=== PATIENT | female | born 1975 | race Caucasian/White ===

== ENCOUNTER 2023-05-24 08:00 | Outpatient (OUT) | payer BC, SELFPAY ==
[2023-05-24 08:40] LABS: Basophils Absolute Auto 0.1 10^3/uL (0.0-0.1); Basophils Percent Auto 0.5 % (0.2-2.0); Eosinophils Absolute Auto 0.2 10^3/uL (0.0-0.7); Eosinophils Percent Auto 1.9 % (0.9-7.0); Hematocrit 45.4 % (36.0-48.0); Hemoglobin 15.4 g/dL (12.0-16.0); Immature Granulocytes Abs Auto 0.02 10^3/uL (0.00-0.03); Immature Granulocytes Pct Auto 0.2 % (0.0-0.5); Lymphocytes Absolute Auto 1.8 10^3/uL (1.2-3.8); Lymphocytes Percent Auto 15.6 % (20.5-60.0); Mean Corpuscular HGB Conc 33.9 g/dL (29.9-35.2); Mean Corpuscular Hemoglobin 30.7 pg (26.7-34.0); Mean Corpuscular Volume 90.6 fL (81.0-99.0); Mean Platelet Volume 9.4 fL (9.5-13.5); Monocytes Absolute Auto 0.3 10^3/uL (0.3-0.8); Monocytes Percent Auto 2.9 % (1.7-12.0); Neutrophils Absolute Auto 9.2 10^3/uL (1.4-6.5); Neutrophils Percent Auto 78.9 % (43.0-75.0); Platelet Count 225 10^3/uL (150-450); Red Blood Count 5.01 10^6/uL (4.20-5.40); Red Cell Distribution Width 13.1 % (11.0-15.0); White Blood Count 11.6 10^3/uL (4.0-11.0)
[2023-05-24 09:35] LABS: Alanine Aminotransferase 46 U/L (14-59); Albumin Globulin Ratio 1.1; Albumin Level 3.8 g/dL (3.4-5.0); Alkaline Phosphatase 95 U/L (46-116); Anion Gap 13.4; Aspartate Amino Transferase 25 U/L (15-37); BUN Creatinine Ratio 12.8; Bilirubin Total 0.2 mg/dL (0.2-1.0); Calcium 8.4 mg/dL (8.5-10.1); Carbon Dioxide 27.1 mmol/L (21.0-32.0); Chloride 102 mmol/L (98-107); Estimated GFR (African America >60 (>=60); Estimated GFR (Non-African Ame >60 (>=60); Globulin 3.4 g/dL; Glucose 135 mg/dL (74-106); Potassium 3.5 mmol/L (3.5-5.1); Sodium 139 mmol/L (136-145); Thyroid Stimulating Hormone 1.185 uIU/mL (0.358-3.740); Total Protein 7.2 g/dL (6.4-8.2)
== END 2023-05-24 08:01 | disposition home or self-care (01) ==
PROVIDERS: PCP Family Medicine; Visit Provider Internal Medicine Rheumatology
DX: E03.9 Hypothyroidism, unspecified (principal); Z79.899 Other long term (current) drug therapy; M07.60 Enteropathic arthropathies, unspecified site; M19.90 Unspecified osteoarthritis, unspecified site
CPT/HCPCS: 36415; 80053; 84439; 84443; 85025

== ENCOUNTER 2023-10-10 13:34 | Outpatient (OUT) | payer BC, SELFPAY ==
--- NOTE | 2023-10-10 13:47 | CA_ITS ---
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: : 1975 Requested By: JORDAN STAPLES Order Number: [id number] Reading MD: LORETA TAYLOR Interpretive Statements Predominant rhythm is sinus with average rate of 85 bpm Tachycardia - max rate of 147 bpm Bradycardia - min rate of 57 bpm Ventricular ectopy - < 1% total Impression: Predominant rhythm is sinus with average rate of 85 bpm Fastest rate of 147 (sinus tachycardia) and slowest rate of 57 bpm (during sleep) No atrial fibrillation Ventricular ectopy < 1% total No pauses Triggered events: - sinus tachycardia w/ rate of 113 bpm - sinus tachycardia w/ rate of 104-106 bpm - sinus rhythm with first degree AV block and Mf PVC (3) - sinus tachycardia w/ rate of 103-108 bpm - sinus tachycardia w/ rate of 99-105 bpm Electronically Signed On 10-27-2023 10:12:15 EST by LORETA TAYLOR
== END 2023-10-10 13:35 | disposition home or self-care (01) ==
LOC: CARD 13:35
PROVIDERS: PCP Family Medicine; Visit Provider Family Medicine
DX: R00.2 Palpitations (principal)
CPT/HCPCS: 93270

== ENCOUNTER 2024-04-01 10:30 | Emergency (ER) | payer BC, SELFPAY ==
--- OUTSIDE RECORDS SUMMARY | 2024-04-01 10:43 | XMS_ITS | CCD ---
Author Organization [facility] Care Team Providers Care [place]glar Alarm Installer Name Role Phone Gaby Islas Unavailable DO Jean Paul Arango Primary Care Provider MD Darrel Barrow Attending Provider MARKER ., DR GRANDE Attending Unavailable MARKER ., DR GRANDE Admitting Unavailable GRECHNY ., KERRY MURRY Consulting Unavailabl e JHOAN, DR JEAN PAUL Lopez Primary Care Unavailable MARKER ., DR GRANDE Consulting Unavailable YAZ JEROME Consulting Unavailable Honorio Jasso Consulting Unavailable NICOLAS GO Attending Unavailable NICOLAS GO Admitting Unavailable JHOAN, DR JEAN PAUL Lopez Primary Care Unavailable NICOLAS GO Consulting Unavailable Darrel Barrow Attending Unavailable Darrel Barrow Admitting Unavailable Jean Paul Arango Primary Care Unavailable LEO JOHNSTON Attending Unavailable Jean Paul Arango DO Primary Care Provider Allergies Allergy Classification Reported Allergen(s) Allergy Type Date of Onset Reaction(s) Facility (4 sources) inFLIXimab Drug Allergy 05-13-2013 Anaphylaxis [facility] (1 source) inFLIXimab Drug Allergy 11-11-2014 [facility] (1 source) inFLIXimab Drug Allergy 08-14-2019 [facility] Medications Current Medications Medication Drug Class(es) Dates Sig (Normalized) Sig (Original) azithromycin 250 mg oral tablet (2 sources) Macrolide Antimicrobial Start: 01-07-2020 Azithromycin Active 250 MG PO Daily January 07, 2020 12:00am Take two tabs (500mg) on day 1 then take one tab daily for 4 days cyclobenzaprine hydrochloride 10 mg oral tablet (6 sources) Muscle Relaxant Start: 09-09-2023 take 3 tablets by mouth once daily at bedtime cyclobenzaprine (FLEXERIL) 10 mg tablet cyclobenzaprine 10 mg tablet TAKE 3 TABLETS BY MOUTH EVERY DAY AT BEDTIME 0 09/09/2023 Active Start: 07-08-2017 End: 08-06-2019 take 30 mg by mouth at bedtime Cyclobenzaprine Active 30 MG PO Bedtime August 06, 2019 12:00am Flexeril 10 MG 3 tablet as needed Orally at hs Active DULoxetine 30 mg delayed release oral capsule (2 sources) Serotonin and Norepinephrine Reuptake Inhibitor Start: 08-20-2022 take 1 capsule by mouth in the morning DULoxetine (CYMBALTA) 30 mg capsule TAKE 1 CAPSULE BY MOUTH IN THE MORNING WITH 60MG DOSE FOR A TOTAL OF 90MG 0 08/20/2022 Active take 1 capsule by mo uth every twelve hours Cymbalta 20 MG 1 capsule Orally Twice a day Active estradiol 2 mg oral tablet (1 source) Estrogen Start: 04-10-2022 take 1 tablet by mouth once daily estradioL (ESTRACE) 2 mg tablet estradiol 2 mg tablet TAKE 1 TABLET BY MOUTH EVERY DAY 0 04/10/2022 Active Estrogens, Conjugated (CARE HOME) (1 source) Estrogen Estrogens Conjug ated Active famotidine 20 mg oral tablet (2 sources) Histamine-2 Receptor Antagonist Start: 09-09-2023 take 1 tablet by mouth once daily famotidine (PEPCID) 20 mg tablet Indications: Gastroesophageal reflux disease, unspecified whether esophagitis present Take 1 tablet (20 mg total) by mouth nightly. 90 tablet 2 09/09/2023 Active take 1 tablet by cricket th every twenty-four hours Pepcid 20 mg 1 tablet Orally Once a day for 1 month Active FLUoxetine (1 source) Serotonin Reuptake Inhibitor Fluoxetine Active hydrOXYzine hydrochloride 25 mg oral tablet (1 source) Antihistamine Start: 04-12-20 22 take 1 tablet by mouth every eight hours as needed hydrOXYzine HCl 25 MG 1 tablet as needed at nighttime Orally every 8 hrs for 7 days Mar, Active ibuprofen 800 mg oral tablet (3 sources) Nonsteroidal Anti-inflammatory Drug Start: 04-10-20 22 take 1 tablet by mouth twice daily as needed ibuprofen (MOTRIN) 800 mg tablet ibuprofen 800 mg tablet TAKE 1 TABLET BY MOUTH TWICE A DAY NEEDED 0 04/10/2022 Active Start: 07-08-2017 End: 12-20-2017 take 600 mg by mouth every four to six hours Ibuprofen Discontinued 600 MG PO EVERY 4-6 HOURS July 08, 2017 12:00am December 20, 2017 12:24pm lansoprazole 15 mg delayed release oral capsule (2 sources) Proton Pump Inhibitor Start: 07-08-2017 take 1 capsule by mouth once daily at bedtime Lansoprazole (Prevacid) 15 mg Capsule,Delayed Release(Dr/Ec) Active 15 MG PO Daily at bedtime July 08, 2017 12:00am LORazepam 1 mg oral tablet (4 sources) Benzodiazepine Start: 08-20-2022 take 1 tablet by mouth once daily at bedtime LORazepam (ATIVAN) 1 mg tablet TAKE 1 TABLET BY MOUTH EVERYDAY AT BEDTIME 0 08/20/2022 Active Start: 07-08-2017 take 1 tablet by cricket th once daily at bedtime Lorazepam (Ativan) 0.5 mg Tablet Active 0.5 MG PO Daily at bedtime July 08, 2017 12:00am methylPREDNISolone 4 mg oral tablet (1 source) Corticosteroid Start: 04-12-2022 methylPREDNISolone 4 MG as directed Orally Mar, Active 24 hr traMADol hydrochloride 100 mg extended release oral tablet (3 sources) Opioid Agonist Start: 07-08-2017 take 100 mg by mouth once daily Tramadol Active 100 MG PO Daily July 08, 2017 12:00am 0.5 ml ustekinumab 90 mg/ml injection (2 sources) Interleukin-12 Antagonist, Interleukin-23 Antagonist Start: 08-21-2017 Ustekinumab (Stelara) 45 mg/0.5 mL Solution Active 0.5 ML SUBCUT EVERY 6 WEEKS August 21, 2017 1:00am Completed/Discontinued Medications Medication Drug Class(es) Dates Sig (Normalized) Sig (Original) acetaminophen 21.7 mg/ml / HYDROcodone bitartrate 0.5 mg/ml oral solution (2 sources) Opioid Agonist Start: 08-23-2019 End: 01-07-2020 take 1 mL by mouth four times daily Hydrocodone-Aceta minophen Discontinued 5 ML PO Four times daily August 23, 2019 1:00am January 07, 2020 7:17am celecoxib 100 mg oral capsule (2 sources) Nonsteroidal Anti-inflammatory Drug Start: 08-06-2019 End: 08-14-2019 take 1 capsule by mouth twice daily Celecoxib (Celebrex) 100 mg Capsule Discontinued 100 MG PO Twice daily August 06, 2019 12:00am August 14, 2019 9:18am Ketorolac (1 source) Nonsteroidal Anti-inflammatory Drug, Cyclooxygenase Inhibitor Start: 05-27-2016 Toradol per 15 mg May, 30 mg naproxen 500 mg oral tablet (2 sources) Nonsteroidal Anti-inflammatory Drug Start: 12-20-2017 End: 11-27-2018 take 500 mg by mouth twice daily at mealtime Naproxen Discontinued 500 MG PO Twice daily December 20, 2017 1:00am November 27, 2018 3:22pm administer with food or milk salsalate 750 mg oral tablet (4 sources) Start: 08-06-2019 End: 08-14-2019 take 1500 mg by mouth once daily at bedtime Salsalate Discontinued 1500 MG PO Daily at bedtime August 06, 2019 12:00am August 14, 2019 9:18am Start: 07-08-2017 End: 08-06-2019 take 1500 mg by mouth twice daily Salsalate Discontinued 1500 MG PO Twice daily July 08, 2017 12:00am August 06, 2019 5:03pm triamcinolone acetonide 10 mg/ml injectable suspension (5 sources) Corticosteroid Start: 04-12-2022 Kenalog Mar 60 mg Start: 03-13-2021 KENALOG - 10 m g February, 30 mg Start: 03-13-2019 Kenalog -40 mg February, 40 mg Start: 07-29-2018 Kenalog -40 mg Jul, 40 mg Start: 03-03-2018 Kenalog -40 mg February, 10 mg Problems Active Problems Problem Classification Problem Date Documented Da te Episodic/Chronic Abdominal pain (2 sources) Abdominal pain; Translations: [Unspecified abdominal pain] Onset: 10-19-2022 Episodic Administrative/social admission (4 sources) Encounter for pre-employment examination; Translations: [ENCOUNTER FOR PRE-EMPLOYMENT EXAM] Onset: 12-12-2022 Episodic Anxiety disorders (1 source) Generalized anxiety disorder; Translations: [Generalized anxiety disorder] Onset: 05-22-2021 09-18-2022 Chronic Cardiac dysrhythmias (1 source) Premature atrial contraction; Translations: [Atrial premature depolarization] Onset: 05-30-2020 09-18-2022 Chronic Cardiac dysrhythmias (2 sources) Palpitations; Translations: [Palpitations] Onset: 09-18-2022 3 Episodic Chronic obstructive pulmonary disease and bronchiectasis (2 sources) Bronchitis; Translations: [Bronchitis, not specified as acute or chronic] 01-07-2020 Episodic Esophageal disorders (5 sources) Diffuse spasm of esophagus; Translations: [Dyskinesia of esophagus] Onset: 09-18-2022 09-18-2022 Chronic Fluid and electrolyte disorders (2 sources) Dehydration; Translations: [Dehydration] 08-23-2019 Episodic Hemorrhoids (2 sources) Hemorrhoids; Translations: [Other hemorrhoids] Episodic Nausea and vomiting (1 source) Nausea; Translations: [Nausea] Episodic Other and unspecified benign neoplasm (1 source) Benign neoplasm of colon; Translations: [Benign neoplasm of colon, unspecified] Episodic Other and unspecified benign neoplasm (1 source) History of polyp of colon; Translations: [Personal history of colonic polyps] Episodic Other complications of (1 source) Morning sickness; Translations: [Mild hyperemesis gravidarum] Episodic Other connective tissue disease (1 source) Muscle rigidity; Translations: [Other specified disorders of muscle] Episodic Other gastrointestinal disorders (1 source) Dysphagia; Translations: [Dysphagia, unspecified] Episodic Other gastrointestinal disorders (1 source) Diarrhea; Translations: [Diarrhea, unspecified] Episodic Other injuries and conditions due to external causes (1 source) Injury of left ankle; Translations: [Unspecified injury of left ankle, initial encounter] Episodic Other non-traumatic joint disorders (4 sources) Pain in left hip; Translations: [PAIN IN LEFT HIP] Onset: 10-17-2022 Episodic Regional enteritis and ulcerative colitis (3 sources) Crohn's disease; Translations: [Crohn's disease, unspecified, without complications] Onset: 05-30-2020 09-18-2022 Chronic Residual codes; unclassified (1 source) Acquired absence of both cervix and uterus; Translations: [ACQUIRED ABSENCE BOTH CERVIX AND UTERUS] Onset: 10-19-2022 Episodic Rheumatoid arthritis and related disease (3 sources) Rheumatoid arthritis; Translations: [Rheumatoid arthritis, unspecified] Onset: 09-18-2022 09-18-2022 Chronic Spondylosis; intervertebral disc disorders; other back problems (1 source) Sciatica, left side; Translations: [SCIATICA LEFT SIDE] Onset: 10-19-2022 Episodic Sprains and strains (3 sources) Sprain of ankle; Translations: [Sprain of unspecified ligament of left ankle, initial encounter] 12-20-2017 Episodic Substance-related disorders (3 sources) Tobacco user; Translations: [Nicotine dependence, unspecified, uncomplicated] Onset: 09-18-2022 09-18-2022 Chronic Superficial injury; contusion (1 source) Contusion of ankle; Translations: [Contusion of left ankle, initial encounter] Episodic Viral infection (2 sources) Viral disease; Translations: [Viral infection, unspecified] 01-07-2020 Episodic Past or Other Problems Problem Classification Problem Date Documented Da te Episodic/Chronic Allergic reactions (1 source) Allergic contact dermatitis due to plants, except food Onset: 04-12-2022 Resolved: 04-12-2022 Episodic Genitourinary symptoms and ill-defined conditions (3 sources) Gross hematuria; Translations: [Ben hematuria] Onset: 05-14-2022 09-18-2022 Episodic Mood disorders (1 source) Mood disorders Onset: 09-09-2023 09-09-2023 Other nervous system disorders (1 source) Facial paresthesia; Translations: [Paresthesia of skin] Onset: 05-22-2021 09-18-2022 Episodic Results Test Name Value Interpretation Reference Range Facility QUANTIFERON TB GOLD PLUSon 0 12-14-2022 QuantiFERON Criteria Comment Normal [facility] Comment on above: Result Comment: Dioni tiFERON-TB Gold Plus is a qualitative indirect test for M tuberculosis infection (including disease) and is intended for use in conjunction with risk assessment, radiography, and other medical and diagnostic evaluations. The QuantiFERON-TB Gold Plus result is determined by subtracting the Nil value from either TB antigen (Ag) value. The Mitogen tube serves as a control for the test. Performed By: #### Q NTTB #### [facility] [address] [address] [address] Kavya Torres QuantiFERON Incubation Incubation performed. Normal [facility] Comment on above: Performed By: #### Q NTTB #### [facility] [address] [address] [address] Kavya Torres QuantiFERON Mitogen Value >10.00 Normal [facility] Comment on above: Performed By: #### Q NTTB #### [facility] [address] [place] [address] Dr. Kavya Torres QuantiFERON Nil Value 0.02 IU/mL Normal [facility] Comment on above: Performed By: #### Q NTTB #### [facility] [address] [place] [address] Dr. Kavya Torres QuantiFERON TB1 Ag Value 0.05 IU/mL Normal [facility] Comment on above: Performed By: #### Q NTTB #### [facility] [address] [place] [address] Dr. Kavya Torres QuantiFERON TB2 Ag Value 0.07 IU/mL Normal [facility] Comment on above: Performed By: #### Q NTTB #### [facility] [address] [place] [address] Dr. Kavya Torres QuantiFERON-TB Gold Plus Negative Normal Negative [facility] Comment on above: Result Comment: No r esponse to M tuberculosis antigens detected. Infection with M tuberculosis is unlikely, but high risk individuals should be considered for additional testing (ATS/IDSA/CDC Clinical Practice Guidelines, 2017). The reference range is an Antigen minus Nil result of <0.35 IU/mL. Chemiluminescence immunoassay methodology Performed By: #### Q NTTB #### [facility] [address] [place] [address] Dr. Kavya Torres HEPATITIS B SURFACE ANTIBODY , QUANTon 12-13-2022 Hepatitis B Surf AB Quant >1000.0 Normal Immunity>9.9 [facility] Comment on above: Result Comment: Stat us of Immunity Anti-HBs Level Inconsistent with Immunity 0.0 - 9.9 Consistent with Immunity >9.9 Performed By: #### H EPBSRF #### [facility] [address] [place] [address] Dr. Kavya Torres MMR IMMUNITYon 12-13-2022 Mumps Abs, IgG 297.0 AU/mL Normal Immune >10.9 [facility] Comment on above: Result Comment: Nega tive <9.0 Equivocal 9.0 - 10.9 Positive >10.9 A positive result generally indicates past exposure to Mumps virus or previous vaccination. Performed By: #### M MRIMMU #### [facility] [address] [place] [address] Dr. Kavya Torres Rubella Antibodies, IgG 7.28 index Normal Immune >0.99 [facility] Comment on above: Result Comment: Non- immune <0.90 Equivocal 0.90 - 0.99 Immune >0.99 Performed By: #### M MRIMMU #### [facility] [address] [place] [address] Dr. Kavya Torres Rubeola Ab, IgG 66.8 AU/mL Normal Immune >16.4 [facility] Comment on above: Result Comment: Nega tive <13.5 Equivocal 13.5 - 16.4 Positive >16.4 Presence of antibodies to Rubeola is presumptive evidence of immunity except when acute infection is suspected. Performed By: #### M MRIMMU #### [facility] [address] [place] [address] Dr. Kavya Torres VARICELLA IGG ABon 3 Varicella Zoster IgG 639 index Normal Immune >165 [facility] Comment on above: Result Comment: Nega tive <135 Equivocal 135 - 165 Positive >165 A positive result generally indicates exposure to the pathogen or administration of specific immunoglobulins, but it is not indication of active infection or stage of disease. Performed By: #### V ARCEL #### [facility] [address] [place] [address] ABD/PELVIS WO CONon 10-18 CT ABD/PELVIS WO CON EXAMINATION: CT ABD/PELVIS WO CON, 10/17/2022 9:35 PM EST HISTORY: Low back pain COMPARISON: CT abdomen and pelvis examination dated 12/06/2021. TECHNIQUE: CT scan of the abdomen and pelvis was performed without IV contrast. CT dose reduction technique was used, including Automated Exposure Control. FINDINGS: The visualized portions of the lung bases are clear. Abdomen: Please note that the sensitivity for detection of focal lesions or vascular disease is markedly reduced without intravenous contrast. The liver and spleen are unremarkable. There is no intra or extrahepatic biliary duct dilatation. The gallbladder is unremarkable. The pancreas, adrenal glands, kidneys, and bowel loops, including the appendix, are unremarkable. There is no mesenteric or retroperitoneal lymphadenopathy. There is a tiny fat-containing umbilical hernia. Pelvis: The bladder and rectum are unremarkable. There is no iliac or inguinal lymphadenopathy. A suspected injection site is seen within the left gluteal subcutaneous tissues with edema and a small amount of air. The patient is status post hysterectomy. There is mild atherosclerotic disease. Bone windows show no aggressive osseous lesions. IMPRESSION: 1. No specific etiology identified to explain the patient's low back pain. 2. Normal appendix. 3. Status post hysterectomy. Electronically authenticated by: Damien JEROME Date: 2022-10-17 22:54 Normal [facility] XR HIP LT 2 3V W PELVISon XR HIP LT 2 3V W PELVIS EXAM: XR HIP LT 2 3V W PELVIS HISTORY: The patient is a 47-year-old female. Low back pain COMPARISON: None. FINDINGS: No displaced fractures are seen within the proximal left femur or elsewhere throughout the bony pelvis. The widths and alignment of both hip joints are maintained. The sacroiliac joints are maintained. The pubic symphysis is maintained. IMPRESSION: Negative. Electronically authenticated by: HONORIO JASSO Date: 2022-10-17 23:39 Normal [facility] CBC AUTO DIFFon 10-17-2022 BASO # 0.1 103/ul Normal 0.0-0.1 [facility] Comment on above: Performed By: #### C BC #### [facility] [address] [address] [address] Kavya Torres Basophils/100 WBC (Bld) 0.8 % Normal 0.2-2.0 [facility] Comment on above: Performed By: #### C BC #### [facility] [address] [address] [address] Kavya Torres EO # 0.3 103/ul Normal 0.0-0.7 [facility] Comment on above: Performed By: #### C BC #### [facility] [address] [address] [address] Kavya Torres Eosinophils/100 WBC (Bld) 4.0 % Normal 0.9-7.0 [facility] Comment on above: Performed By: #### C BC #### [facility] [address] [place] [address] Dr. Kavya Torres Erythrocyte distribution width (RBC) [Ratio] 13.0 % Normal 11.0-15.0 [facility] Comment on above: Performed By: #### C BC #### [facility] [address] [place] [address] Dr. Kavya Torres Hematocrit (Bld) [Volume fraction] 35.5 % Critically low 36.0-48.0 [facility] Comment on above: Performed By: #### C BC #### [facility] [address] [place] [address] Dr. Kavya Torres Hemoglobin (Bld) [Mass/Vol] 12.1 g/dL Normal 12.0-16.0 [facility] Comment on above: Performed By: #### C BC #### [facility] [address] [place] [address] Dr. Kavya Torres IG # 0.01 10e3/ul Normal 0.00-0.03 [facility] Comment on above: Performed By: #### C BC #### [facility] [address] [place] [address] Dr. Kavya Torres IG % 0.1 % Normal 0.0-0.5 [facility] Comment on above: Performed By: #### C BC #### [facility] [address] [place] [address] Dr. Kavya Torres LYMPH # 3.2 103/ul Normal 1.2-3.8 [facility] Comment on above: Performed By: #### C BC #### [facility] [address] [place] [address] Dr. Kavya Torres Lymphocytes/100 WBC (Bld) 44.2 % Normal 20.5-60.0 [facility] Comment on above: Performed By: #### C BC #### [facility] [address] [place] [address] Dr. Kavya Torres MANUAL DIFF REQ NO Normal [facility] Comment on above: Performed By: #### C BC #### [facility] [address] [address] [address] Kavya Torres MCH (RBC) [Entitic mass] 30.7 pg Normal 26.7-34.0 [facility] Comment on above: Performed By: #### C BC #### [facility] [address] [place] [address] Dr. Kavya Torres MCHC (RBC) [Mass/Vol] 34.1 g/dL Normal 29.9-35.2 [facility] Comment on above: Performed By: #### C BC #### [facility] [address] [place] [address] Dr. Kavya Torres MCV (RBC) [Entitic vol] 90.1 fL Normal 81.0-99.0 [facility] Comment on above: Performed By: #### C BC #### [facility] [address] [place] [address] Dr. Kavya Torres MONO # 0.4 103/ul Normal 0.3-0.8 [facility] Comment on above: Performed By: #### C BC #### [facility] [address] [place] [address] Dr. Kavya Torres Monocytes/100 WBC (Bld) 5.4 % Normal 1.7-12.0 [facility] Comment on above: Performed By: #### C BC #### [facility] [address] [place] [address] Dr. Kavya Torres NEUT # 3.3 103/ul Normal 1.4-6.5 [facility] Comment on above: Performed By: #### C BC #### [facility] [address] [place] [address] Dr. Kavya Torres Neutrophils/100 WBC (Bld) 45.5 % Normal 43.0-75.0 [facility] Comment on above: Performed By: #### C BC #### [facility] [address] [place] [address] Dr. Kavya Torres Platelet mean volume (Bld) [Entitic vol] 9.0 fL Critically low 9.5-13.5 [facility] Comment on above: Performed By: #### C BC #### [facility] [address] [address] [address] Kavya Torres PLT 305 103/ul Normal 150-450 [facility] Comment on above: Performed By: #### C BC #### [facility] [address] [place] [address] Dr. aKvya Torres RBC 3.94 106/ul Critically low 4.20-5.40 [facility] Comment on above: Performed By: #### C BC #### [facility] [address] [place] [address] Dr. Kavya Torres WBC 7.2 103/ul Normal 4.0-11.0 [facility] Comment on above: Performed By: #### C BC #### [facility] [address] [place] [address] Dr. Kavya Torres ER URINE PROFILEon 3 Bilirubin Ql (U) Negative Normal NEGATIVE [facility] Comment on above: Performed By: #### U MICRO, ERUR #### [facility] [address] [place] [address] Dr. Kavya Torres Clarity (U) CLEAR Normal CLEAR [facility] Comment on above: Performed By: #### U MICRO, ERUR #### [facility] [address] [place] [address] Dr. Kavya Torres Color (U) LT. YELLOW Normal YELLOW [facility] Comment on above: Performed By: #### U MICRO, ERUR #### [facility] [address] [place] [address] Dr. Kavya Torres ERUAHD A micrscopic examination will be performed if indicated. Normal [facility] Comment on above: Performed By: #### U MICRO, ERUR #### [facility] [address] [place] [address] Dr. Kavya Torres Glucose Ql (U) Negative Normal NEGATIVE [facility] Comment on above: Performed By: #### U MICRO, ERUR #### [facility] [address] [place] [address] Dr. Kavya Torres Hemoglobin Ql (U) TRACE-LYSED Abnormal NEGATIVE [facility] Comment on above: Performed By: #### U MICRO, ERUR #### [facility] [address] [address] [address] Kavya Torres Ketones Ql (U) Negative Normal NEGATIVE [facility] Comment on above: Performed By: #### U MICRO, ERUR #### [facility] [address] [place] [address] Dr. Kavya Torres LEUKOCYTES Negative Normal NEGATIVE [facility] Comment on above: Performed By: #### U MICRO, ERUR #### [facility] [address] [address] [address] Kavya Torres Nitrite Ql (U) Negative Normal NEGATIVE [facility] Comment on above: Performed By: #### U MICRO, ERUR #### [facility] [address] [place] [address] Dr. Kavya Torres pH (U) 6.0 [pH] Normal 5-9 [facility] Comment on above: Performed By: #### U MICRO, ERUR #### [facility] [address] [place] [address] Dr. Kavya Torres SPEC GRAVITY 1.010 Normal 1.005-<=1.025 [facility] Comment on above: Performed By: #### U MICRO, ERUR #### [facility] [address] [place] [address] Dr. Kavya Torres UA PROTEIN Negative Normal NEGATIVE/ TRACE [facility] Comment on above: Performed By: #### U MICRO, ERUR #### [facility] [address] [address] [address] Kavya Torres UR MICRO IND INDICATED Normal [facility] Comment on above: Performed By: #### U MICRO, ERUR #### [facility] [address] [place] [address] Dr. Kavya Torres Urobilinogen Qn (U) 0.2 {Tito'U}/dL Normal 0.2 - 1. 0 [facility] Comment on above: Performed By: #### U MICRO, ERUR #### [facility] [address] [place] [address] Dr. Kavya Torres PROF 14(COMP METB)on 023 Albumin [Mass/Vol] 3.5 g/dL Normal 3.4-5.[address] [facility] Comment on above: Performed By: #### C MP #### [facility] [address] [place] [address] Dr. Kavya Torres Albumin/Globulin [Mass ratio] 1.1 {ratio} Normal [facility] Comment on above: Performed By: #### C MP #### [facility] [address] [place] [address] Dr. Kavya Torres ALP [Catalytic activity/Vol] 107 U/L Normal 46-116 [facility] Comment on above: Performed By: #### C MP #### [facility] [address] [place] [address] Dr. Kavya Torres ALT [Catalytic activity/Vol] 42 U/L Normal 14-59 [facility] Comment on above: Performed By: #### C MP #### [facility] [address] [place] [address] Dr. Kavya Torres Anion gap [Moles/Vol] 10.2 mmol/L Normal [facility] Comment on above: Performed By: #### C MP #### [facility] [address] [place] [address] Dr. Kavya Torres AST [Catalytic activity/Vol] 24 U/L Normal 15-37 [facility] Comment on above: Performed By: #### C MP #### [facility] [address] [place] [address] Dr. Kavya Torres Bilirubin [Mass/Vol] 0.2 mg/dL Normal 0.2-1.0 [facility] Comment on above: Performed By: #### C MP #### [facility] [address] [place] [address] Dr. Kavya Torres Calcium [Mass/Vol] 8.8 mg/dL Normal 8.5-10.[address] [facility] Comment on above: Performed By: #### C MP #### [facility] [address] [place] [address] Dr. Kavya Torres Chloride [Moles/Vol] 101 mmol/L Normal 98-107 [facility] Comment on above: Performed By: #### C MP #### [facility] [address] [address] [address] Kavya Torres CO2 [Moles/Vol] 29.2 mmol/L Normal 21.0-32.0 [facility] Comment on above: Performed By: #### C MP #### [facility] [address] [address] [address] Kavya Torres Creatinine [Mass/Vol] 0.85 mg/dL Normal 0.55-1.02 [facility] Comment on above: Performed By: #### C MP #### [facility] [address] [place] [address] Dr. Kavya Torres EGFR-AF TURKS AND [place] ISLANDER >60 Normal >=60 [facility] Comment on above: Performed By: #### C MP #### [facility] [address] [place] [address] Dr. Kavya Torres EGFR-NON AF TURKS AND [place] ISLANDER >60 Normal >=60 [facility] Comment on above: Performed By: #### C MP #### [facility] [address] [address] [address] Kavya Torres Globulin (S) [Mass/Vol] 3.3 g/dL Normal [facility] Comment on above: Performed By: #### C MP #### [facility] [address] [place] [address] Dr. Kavya Torres Glucose [Mass/Vol] 94 mg/dL Normal 74-106 [facility] Comment on above: Performed By: #### C MP #### [facility] [address] [place] [address] Dr. Kavya Torres Potassium [Moles/Vol] 3.4 mmol/L Critically low 3.5-5.1 [facility] Comment on above: Performed By: #### C MP #### [facility] [address] [place] [address] Dr. Kavya Torres Protein [Mass/Vol] 6.8 g/dL Normal 6.4-8.2 [facility] Comment on above: Performed By: #### C MP #### [facility] [address] [address] [address] Kavya Torres Sodium [Moles/Vol] 137 mmol/L Normal 136-[address] [facility] Comment on above: Performed By: #### C MP #### [facility] [address] [address] [address] Kavya Torres Urea nitrogen [Mass/Vol] 15.0 mg/dL Normal 7.0-18.0 [facility] Comment on above: Performed By: #### C MP #### [facility] [address] [place] [address] Dr. Kavya Torres Urea nitrogen/Creatinine [Mass ratio] 17.6 mg/mg Normal [facility] Comment on above: Performed By: #### C MP #### [facility] [address] [place] [address] Dr. Kavya Torres URINE MICROSCOPIC ONLYon BACTERIA TRACE Abnormal NONE SEEN [facility] Comment on above: Performed By: #### U MICRO, ERUR #### [facility] [address] [place] [address] Dr. Kavya Torres Bacteria identified Cx Nom (U) NOT INDICATED Normal [facility] Comment on above: Performed By: #### U MICRO, ERUR #### [facility] [address] [place] [address] Dr. Kavya Torres CAST NONE SEEN Normal NONE SEEN [facility] Comment on above: Performed By: #### U MICRO, ERUR #### [facility] [address] [place] [address] Dr. Kavya Torres Crystals LM Nom (Urine sed) NONE SEEN Normal NONE SEEN [facility] Comment on above: Performed By: #### U MICRO, ERUR #### [facility] [address] [place] [address] Dr. Kavya Torres Epithelial cells LM Ql (Urine sed) MODERATE Abnormal NONE SEEN /RARE [facility] Comment on above: Performed By: #### U MICRO, ERUR #### [facility] [address] [place] [address] Dr. Kavya Torres MUCOUS NONE SEEN Normal NONE SEEN [facility] Comment on above: Performed By: #### U MICRO, ERUR #### [facility] [address] [address] [address] Kavya Torres RBC 0-2 Normal 0-2 [facility] Comment on above: Performed By: #### U MICRO, ERUR #### [facility] [id number] Kavya Torres WBC 0-2 Abnormal NONE SEEN [facility] Comment on above: Performed By: #### U MICRO, ERUR #### [facility] [address] [address] [address] Kavya Torres RAD - Ultrasound Reporton RAD - Ultrasound Report [id number] CE#1.00CD:127 Normal [facility] Lab Reportson 05-11-2022 Lab Reports [id number] 48#1.00CD:127 Normal [facility] Lab Reports [id number]#1.00CD:127 Normal [facility] Lab Reports [id number] 0A#1.00CD:127 Normal [facility] Urine culture routineOrdered By: Darrel Barrow on 05-11-2022 Bacteria identified Cx Nom (U) No Growth 2 Days [facility] Operative Reporton Operative Report [id number] 80#1.00CD:127 Normal [facility] Automated erythrocytes count in urine sediment (number/area)Ordered By: Darrel Barrow on 05-09-2022 RBC Auto (Urine sed) [#/Area] 0-1 [HPF] 0-4 [facility] Automated leukocytes count i n urine sediment (number/area)Ordered By: Darrel Barrow on 05-09-2022 WBC Auto (Urine sed) [#/Area] None seen [HPF] 0-4 [facility] Bilirubin Auto test strip Ql (U)Ordered By: Darrel Barrow on 05-09-2022 Bilirubin Ql (U) Negative Negative [facility] Ketones Auto test strip (U) [Mass/Vol]Ordered By: Darrel Barrow on 05-09-2022 Ketones (U) [Mass/Vol] Negative Negative [facility] Laboratory - UrinalysisOrder ed By: Darrel Barrow on 05-09-2022 Hyaline casts LM Ql (Urine sed) None seen [LPF] 0-8 [facility] Protein Auto test strip (U) [Mass/Vol]Ordered By: Darrel Barrow on 05-09-2022 Protein (U) [Mass/Vol] Negative Negative [facility] Squamous epithelial cells de tection in urine sediment by light microscopyOrdered By: Darrel Barrow on 05-09-2022 Epithelial cells.squamous LM Ql (Urine sed) None seen [HPF] 0-2 [facility] Urine appearanceOrdered By: Darrel Barrow on 05-09-2022 Appearance (U) Clear Clear [facility] Urine bacteria detection by automated methodOrdered By: Darrel Barrow on 05-09-2022 Bacteria Auto Ql (U) None seen None Seen [facility] Urine colorOrdered By: Lico Barrow on 05-09-2022 Color (U) Yellow Yellow [facility] Urine glucose measurement by automated test strip (mass/volume)Ordered By: Darrel Barrow on 05-09-2022 Glucose Auto test strip (U) [Mass/Vol] Normal mg/dL Normal [facility] Urine hemoglobin detection b y automated test stripOrdered By: Darrel Barrow on 05-09-2022 Hemoglobin Auto test strip Ql (U) 1+ Negative [facility] Urine leukocyte esterase det ection by automated test stripOrdered By: Darrel Barrow on 05-09-2022 Leukocyte esterase Auto test strip Ql (U) Negative Negative [facility] Urine nitrite detection by a utomated test stripOrdered By: Darrel Barrow on 05-09-2022 Nitrite Auto test strip Ql (U) Negative Negative [facility] Urobilinogen Auto test strip (U) [Mass/Vol]Ordered By: Darrel Barrow on 05-09-2022 Urobilinogen (U) [Mass/Vol] Normal mg/dL Normal [facility] pH Auto test strip (U)Ordere d By: Darrel Barrow on 05-09-2022 pH (U) 1.010 [pH] 1.001-1.030 [facility] pH (U) 6.0 [pH] 5.0-9.0 [facility] Insurance Correspondenceon 0 05-01-2022 Insurance Correspondence [id number]#1.00CD:127 Normal [facility] UroVysion Fish and Urine Cyt o ([facility])on 04-17-2022 UVFISH & UC Diagnosis Info Invalid Interpretation Code [facility] Comment on above: Result Comment: A:Ur ine,Urine:Voided Diagnosis Summary - Diagnosis Summary - The UroVysion FISH study detected normal copy numbers for chromosomes 3, 7, 17, and 9p21. 134 cells were analyzed in this evaluation. No evidence of aneuploidy for chromosomes 3, 7, or 17 or deletion of the 9p21 locus was found in cells present in this specimen. This test does not rule out the possibility of a low grade non-invasive papillary urothelial carcinoma. These findings should be correlated with cytology and cystoscopy results.* Microscopic Notes - Microscopic Notes - Abnormal cells 9p21 deletions: Abnormal cells aneploid events: Total cells analyzed: 134 Hematuria: Gross Description Site ID:A color Light Yellow fixative Alcohol Received 90 mls of clear light yellow fluid with the patient's name and, Urine on the vial. Electronically signed by : on: 04/17/2022 13:53:00 Performed By: #### 1 [id number] #### [facility] [address] [place] [address] Ambulatory Visit Summaryon 0 04-10-2022 Ambulatory Visit Summary SYDNIE CARVAJAL :1975 Visit Date:04/10/2022 Ambulatory Visit Instructions Your Diagnosis Gross hematuria Nocturia Smoker Tests Performed Urnls Dip Stick Auto w/o Microscopy POC 25430 Your Care Team Attending Physician - KAHLIL CARDOZA, Darrel López Primary Care Physician - JEAN PAUL ARANGO DO This Is Your Medications List Contact prescribing physician if questions or concerns acetaminophen-hydro codone ([place] 325 mg-5 mg oral tablet) cyclobenzaprine (cyclobenzaprine 10 mg Tab) duloxetine (Cymbalta 30 mg Cap-DR) duloxetine (Cymbalta 60 mg Cap-DR) estradiol (estradiol 2 mg Tab) ibuprofen (ibuprofen 800 mg Tab) loperamide lorazepam (Ativan 1 mg Tab) orphenadrine (Norflex 100 mg Tab-ER) tramadol (tramadol 50 mg oral tablet) Procedures Performed Hysterectomy, Sphenoid sinusotomy, Tonsillectomy. What to do next You Need to Schedule the Following Appointments Follow Up with KAHLIL CARDOZA, PAPI Griffin When: Where: [address] [place] [address]- Medications What How Much When Instructions Unchanged acetaminophen-hydro codone ([place] 325 mg-5 mg oral tablet) 1 Tablets By Mouth Every 6 hours as needed for for pain Contact prescribing physician if questions or concerns Unchanged cyclobenzaprine (cyclobenzaprine 10 mg Tab) 1 Tablets Contact prescribing physician if questions or concerns Unchanged duloxetine (Cymbalta 30 mg Cap-DR) 30 Milligram By Mouth Contact prescribing physician if questions or concerns Unchanged duloxetine (Cymbalta 60 mg Cap-DR) 60 Milligram By Mouth Every day Contact prescribing physician if questions or concerns Unchanged estradiol (estradiol 2 mg Tab) 1 Tablets Contact prescribing physician if questions or concerns Unchanged ibuprofen (ibuprofen 800 mg Tab) 1 Tablets Contact prescribing physician if questions or concerns Unchanged loperamide Contact prescribing physician if questions or concerns Unchanged lorazepam (Ativan 1 mg Tab) 1 Tablets By Mouth Contact prescribing physician if questions or concerns Unchanged orphenadrine (Norflex 100 mg Tab-ER) 1 Tablets By Mouth 2 times a day Contact prescribing physician if questions or concerns Unchanged tramadol (tramadol 50 mg oral tablet) 1 Tablets Contact prescribing physician if questions or concerns Test Results Urnls Dip Stick Auto w/o Microscopy POC 35598 (04/10/2022) Bilirubin Urine Dipstick - Negative Blood Urine Dipstick - 2+ Moderate Glucose Urine Dipstick - Negative Ketones Urine Dipstick - Negative Leukocytes Urine Dipstick - Negative Nitrite Urine Dipstick - Negative Protein Urine Dipstick - Negative Specific [place] Urine Dipstick - 1.015 Urine Appearance Urine Dipstick - Clear Urine Color Urine Dipstick - Yellow Urobilinogen Urine Dipstick - Normal 0.2-1 EU/dl pH Urine Dipstick - 5 Allergies Remicade (Anaphylactic shock due to serum) Problems Ongoing - Any problem that you are currently receiving treatment for. Crohns disease Facial paresthesia GERD (gastroesophageal reflux disease) Gross hematuria Nocturia Rheumatoid arteritis Smoker Historical - Any problem that you are no longer receiving treatment for. Arthritis Education Materials Hematuria, Adult Hematuria is blood in the urine. Blood may be visible in the urine, or it may be identified with a test. This condition can be caused by infections of the bladder, urethra, kidney, or prostate. Other possible causes include: ? Kidney stones. ? Cancer of the urinary tract. ? Too much calcium in the urine. ? Conditions that are passed from parent to child (inherited conditions). ? Exercise that requires a lot of energy. Infections can usually be treated with medicine, and a kidney stone usually will pass through your urine. If neither of these is the cause of your hematuria, more tests may be needed to identify the cause of your symptoms. It is very important to tell your health care provider about any blood in your urine, even if it is painless or the blood stops without treatment. Blood in the urine, when it happens and then stops and then happens again, can be a symptom of a very serious condition, including cancer. There is no pain in the initial stages of many urinary cancers. Follow these instructions at home: Medicines ? Take xomj-eey-sqseozz and prescription medicines only as told by your health care provider. ? If you were prescribed an antibiotic medicine, take it as told by your health care provider. Do not stop taking the antibiotic even if you start to feel better. Eating and drinking ? Drink enough fluid to keep your urine clear or pale yellow. It is recommended that you drink 3?4 quarts (2.8?3.8 L) a day. If you have been diagnosed with an infection, it is recommended that you drink cranberry juice in addition to large amounts of water. ? Avoid caffeine, tea, and carbonated beverages. These tend to irritate the bladder. (more content not included)... Normal [facility] Formson 04-10-2022 Forms [id number] F1#1.00CD:127 Normal [facility] Patient Educationon 04-10-20 22 Patient Education Urology Hematuria, Adult Hematuria is blood in the urine. Blood may be visible in the urine, or it may be identified with a test. This condition can be caused by infections of the bladder, urethra, kidney, or prostate. Other possible causes include: ? Kidney stones. ? Cancer of the urinary tract. ? Too much calcium in the urine. ? Conditions that are passed from parent to child (inherited conditions). ? Exercise that requires a lot of energy. Infections can usually be treated with medicine, and a kidney stone usually will pass through your urine. If neither of these is the cause of your hematuria, more tests may be needed to identify the cause of your symptoms. It is very important to tell your health care provider about any blood in your urine, even if it is painless or the blood stops without treatment. Blood in the urine, when it happens and then stops and then happens again, can be a symptom of a very serious condition, including cancer. There is no pain in the initial stages of many urinary cancers. Follow these instructions at home: Medicines ? Take ldng-fwl-agwamvu and prescription medicines only as told by your health care provider. ? If you were prescribed an antibiotic medicine, take it as told by your health care provider. Do not stop taking the antibiotic even if you start to feel better. Eating and drinking ? Drink enough fluid to keep your urine clear or pale yellow. It is recommended that you drink 3?4 quarts (2.8?3.8 L) a day. If you have been diagnosed with an infection, it is recommended that you drink cranberry juice in addition to large amounts of water. ? Avoid caffeine, tea, and carbonated beverages. These tend to irritate the bladder. ? Avoid alcohol because it may irritate the prostate (men). General instructions ? If you have been diagnosed with a kidney stone, follow your health care provider's instructions about straining your urine to catch the stone. ? Empty your bladder often. Avoid holding urine for long periods of time. ? If you are female: ? After a bowel movement, wipe from front to back and use each piece of toilet paper only once. ? Empty your bladder before and after sex. ? Pay attention to any changes in your symptoms. Tell your health care provider about any changes or any new symptoms. ? It is your responsibility to get your test results. Ask your health care provider, or the department performing the test, when your results will be ready. ? Keep all follow-up visits as told by your health care provider. This is important. Contact a health care provider if: ? You develop back pain. ? You have a fever. ? You have nausea or vomiting. ? Your symptoms do not improve after 3 days. ? Your symptoms get worse. Get help right away if: ? You develop severe vomiting and are unable take medicine without vomiting. ? You develop severe pain in your back or abdomen even though you are taking medicine. ? You pass a large amount of blood in your urine. ? You pass blood clots in your urine. ? You feel very weak or like you might faint. ? You faint. Summary ? Hematuria is blood in the urine. It has many possible causes. ? It is very important that you tell your health care provider about any blood in your urine, even if it is painless or the blood stops without treatment. ? Take dyso-oic-dgkpcag and prescription medicines only as told by your health care provider. ? Drink enough fluid to keep your urine clear or pale yellow. This information is not intended to replace advice given to you by your health care provider. Make sure you discuss any questions you have with your health care provider. Document Released: 09/30/2006 Document Revised: 02/24/2020 Document Reviewed: 11/02/2017 Elsevier Patient Education ? 2019 [employer] Normal [facility] UroVysion Fish and Urine Cyt o ([facility])on 04-10-2022 [facility] Method of Extraction Voided Normal [facility] Comment on above: Performed By: #### 1 [id number] #### [facility] [address] [place] [address] [facility] Number of Jars 1 Invalid Interpretation Code [facility] Comment on above: Performed By: #### 1 [id number] #### [facility] [address] [place] [address] [facility] Specimen Urine Normal [facility] Comment on above: Performed By: #### 1 [id number] #### [facility] [address] [place] [address] [facility] Type of Service Technical Only Normal [facility] Comment on above: Performed By: #### 1 [id number] #### [facility] [address] [place] [address] Historical Records Officeon 03-07-2022 Historical Records Office [id number] 1#1.00CD:127 Normal [facility] Physician Referralon 022 Physician Referral [id number] EE#1.00CD:127 Normal [facility] COMPREHENSIVE METABOLIC PANE Rodrigo 03-06-2022 Albumin [Mass/Vol] 4.2 g/dL Normal 3.6-5.1 [facility] Comment on above: Performed By: #### 1 023, 7600 #### [facility] [place] [address] [place]: Clement Chacko MD Albumin/Globulin [Mass ratio] 1.6 {ratio} Normal 1.0-2.5 [facility] Comment on above: Performed By: #### 1 023, 0 #### [facility] [place] [address] [place]: Clement Chacko MD ALP [Catalytic activity/Vol] 84 U/L Normal 31-125 [facility] Comment on above: Performed By: #### 1 0231, 7600 #### [facility] [place] [address] [place]: Clement Chacko MD ALT [Catalytic activity/Vol] 15 U/L Normal 6-29 [facility] Comment on above: Performed By: #### 1 0231, 7600 #### [facility] [place] [address] [place]: Clement Chacko MD AST [Catalytic activity/Vol] 17 U/L Normal 10-30 [facility] Comment on above: Performed By: #### 1 0231, 7600 #### [facility] [place] [address] [place]: Clement Chacko MD Bilirubin [Mass/Vol] 0.2 mg/dL Normal 0.2-1.2 [facility] Comment on above: Performed By: #### 1 0231, 7600 #### [facility] of [address], [address] [place] [address] [place]: Clement Chacko MD BUN/CREATININE RATIO NOT APPLICABLE Normal 6-22 [facility] Comment on above: Performed By: #### 1 0231, 7600 #### [facility] of [address], [address] [place] [address] [place]: Clement Chacko MD Calcium [Mass/Vol] 9.5 mg/dL Normal 8.6-10.2 [facility] Comment on above: Performed By: #### 1 0231, 7600 #### [facility] of [address] [place] [address] [place]: Clement Chacko MD Chloride [Moles/Vol] 105 mmol/L Normal 98-110 [facility] Comment on above: Performed By: #### 1 0231, 7600 #### [facility] of [address], [address] [place] [address] [place]: Clement Chacko MD CO2 [Moles/Vol] 29 mmol/L Normal 20-32 [facility] Comment on above: Performed By: #### 1 0231, 7600 #### [facility] [address], [address] [place] [address] [place]: Clement Chacko MD Creatinine [Mass/Vol] 0.73 mg/dL Normal 0.50-1.[address] [facility] Comment on above: Performed By: #### 1 0231, 7600 #### [facility] of [address] [place] [address] [place]: Clement Chacko MD eGFR NON-AFR. TURKS AND [place]ER 100 mL/min/1.73m2 Normal > OR = 60 [facility] Comment on above: Performed By: #### 1 0231, 7600 #### [facility] of [address], [address] [place] [address] [place]: Clement Chacko MD GFR/1.73 sq M.predicted among blacks MDRD (S/P/Bld) [Vol rate/Area] 116 mL/min/{1.73_m2} Normal > OR = 60 [facility] Comment on above: Performed By: #### 1 023, 7600 #### [facility] [address], [address] [place] [address] [place]: Clement Chacko MD Globulin (S) [Mass/Vol] 2.6 g/dL Normal 1.9-3.7 [facility] Comment on above: Performed By: #### 1 023, 7600 #### [facility] [place] [address] [place]: Clement Chacko MD Glucose [Mass/Vol] 83 mg/dL Normal 65-99 [facility] Comment on above: Result Comment: Fasting reference interval Performed By: #### 1 230, 0 #### [facility] [place] [address] [place]: Clement Chacko MD Potassium [Moles/Vol] 4.4 mmol/L Normal 3.5-5.[address] [facility] [address] [facility] Comment on above: Performed By: #### 1 023, 7600 #### [facility] [place] [address] [place]: Clement Chacko MD Protein [Mass/Vol] 6.8 g/dL Normal 6.1-8.1 [facility] Comment on above: Performed By: #### 1 023, 7600 #### [facility] of [place] [address] [place]: Clement Chacko MD Sodium [Moles/Vol] 140 mmol/L Normal 135-146 [facility] Comment on above: Performed By: #### 1 023, 7600 #### [facility] [place] [address] [place]: Clement Chacko MD Urea nitrogen [Mass/Vol] 12 mg/dL Normal 7-25 [facility] Comment on above: Performed By: #### 1 023, 7600 #### [facility] [address], [address] [place] [address] [place]: Clement Chacko MD LIPID PANEL, [address] Cholesterol [Mass/Vol] 198 mg/dL Normal <200 [facility] Comment on above: Performed By: #### 1 0231, 7600 #### [facility] [address], [address] [place] [address] [place]: Clement Chacko MD Cholesterol in HDL [Mass/Vol] 47 mg/dL Low > OR = 50 [facility] Comment on above: Performed By: #### 1 023, 7600 #### [facility] Diagn[facility] [address], [address] [place] [address] Sawsmith: Clement Chacko MD Cholesterol in LDL [Mass/Vol] 103 mg/dL High [facility] Comment on above: Result Comment: Refe rence range: <100 Desirable range <100 mg/dL for primary prevention; <70 mg/dL for patients with CHD or diabetic patients with > or = 2 CHD risk factors. LDL-C is now calculated using the Freddie-Vinayak calculation, which is a validated novel method providing better accuracy than the Friedewald equation in the estimation of LDL-C. Freddie PAULA et al. MAHAD. 2013;310(19): 6468-3379 (http://education.Labmeeting.Hemoteq/faq/FRU113) Performed By: #### 1 023, 0 #### [facility] [address], [address] [place] [address] Sawsmith: Clement Chacko MD Cholesterol.total/Cho lesterol in HDL [Mass ratio] 4.2 {ratio} Normal <5.0 [facility] Comment on above: Performed By: #### 1 023, 7600 #### [facility] [address], [address] [place] [address] Sawsmith: Clement Chacko MD NON HDL CHOLESTEROL 151 mg/dL (calc) High <130 [facility] Comment on above: Result Comment: For patients with diabetes plus 1 major ASCVD risk factor, treating to a non-HDL-C goal of <100 mg/dL (LDL-C of <70 mg/dL) is considered a therapeutic option. Performed By: #### 1 023, 7600 #### [facility] [address] [place] [address], [address] [place] [phone] Sawsmith: Clement Chacko MD Triglyceride [Mass/Vol] 361 mg/dL High <150 [facility] Comment on above: Result Comment: If a non-fasting specimen was collected, consider repeat triglyceride testing on a fasting specimen if clinically indicated. Pinto et al. J. of Clin. Lipidol. 2015;9:129-169. Performed By: #### 1 023, 9760 #### [facility] [address] [facility], [address] [place] [phone] Sawsmith: Clement Chacko MD [facility] 01-06-2021 [facility] Telephone (ORQ) ---- SYDNIE CARVAJAL ([id number]) 1975 F Date Time Provider Department 01/06/21 ALVARO SESAY ORQ During your visit today, we recorded the following information about you: Snow Kike 01/06/2021 9:54 AM Signed Sarahi from [facility] Rerral [facility] calling stating she faxed C9 letter with approval and all [facility] information to office on 12/30 and was calling to verify it was received. Sarahi can be reached at [phone] to verify it was received. Sarahi states approval is until 02/10 and needs to be seen before then by Dr Sesay. Please advise. Sharmaine Butler ADM 01/10/2021 11:07 AM Signed I reviewed chart. C9 approval was scanned into chart but patient was not contacted to schedule. Left voice mail message for patient to check her my chart or to call back and I will help schedule her for consult with Dr Sesay. I did save a spot on January 26 if she can do that day. Sharmaine Butler Allergies As of Date: 01/06/2021 Noted Allergy Reaction REMICADE (INFLIXIMAB) 05/13/2013 14 - Other: See Comments Comments: Paralysis x3 days Date Reviewed: 11/07/2020 Reviewed by: Souleymane Arriola - Fully Assessed Reason for Visit: Appointment [186] Prescriptions as of 01/06/2021 Sig: DULOXETINE 30 MG CAPSULE,DEMETRIA* Take 30 mg by mouth every mor* ESTRADIOL 1 MG TABLET Take 1 mg by mouth once daily. LORAZEPAM 0.5 MG TABLET Take 0.5 mg by mouth once ramez* PLENVU 140 GRAM-9 GRAM-5.2 GR* PREDNISONE 20 MG TABLET Take 20 mg by mouth once shalonda* CYCLOBENZAPRINE 10 MG TABLET Take 10 mg by mouth daily at * MAGNESIUM OXIDE 400 MG (241.3* Take 1 tablet by mouth once d* Problem List As Of Date: 01/06/2021 (None) Encounter Status:Closed by DWAYNEVISH BOATENGTIFFANYI on 01/10/21 [facility] Cande 11-14-2020 [facility] Telephone (ORAVON) ---- SYDNIE CARVAJAL ([id number]) 1975 F Date Time Provider Department 11/14/20 ALVARO SESAY During your visit today, we recorded the following information about you: Sharmaine Butler 11/14/2020 1:44 PM Signed I spoke to the patient today. She wanted to know if her [facility] had approved a C9 to see Dr Sesay tomorrow. First off, the claim number she was registered with was not correct. Her correct claim number is [id number] and is allowed for lateral epicondylitis - R elbow. She is going to call her [facility] to have them submit the C9 for the consult with Dr Sesay to discuss possibly doing a TenJet procedure - Dr Das referred her. The approved C9 in the system for the 2nd opinion, was for the visit she just had with Dr Das. Once she gets the C9 approval to see Dr Sesay, she will call me directly so I can schedule her. I am also updating her registration so the visit will be attached to the 2018 claim and not the incorrect 2013 claim that it was attached to. Sharmaine BOATENG Allergies As of Date: 11/14/2020 Noted Allergy Reaction REMICADE (INFLIXIMAB) 05/13/2013 14 - Other: See Comments Comments: Paralysis x3 days Date Reviewed: 11/07/2020 Reviewed by: Souleymane Arriola - Fully Assessed Reason for Visit: Appointment [186] Prescriptions as of 11/14/2020 Sig: DULOXETINE 30 MG CAPSULE,DEMETRIA* Take 30 mg by mouth every mor* ESTRADIOL 1 MG TABLET Take 1 mg by mouth once daily. LORAZEPAM 0.5 MG TABLET Take 0.5 mg by mouth once ramez* PLENVU 140 GRAM-9 GRAM-5.2 GR* PREDNISONE 20 MG TABLET Take 20 mg by mouth once shalonda* CYCLOBENZAPRINE 10 MG TABLET Take 10 mg by mouth daily at * MAGNESIUM OXIDE 400 MG (241.3* Take 1 tablet by mouth once d* Problem List As Of Date: 11/14/2020 (None) Encounter Status:Closed by SHARMAINE MONTESINOS on 11/14/20 Normal [facility] Vital Signs Date Time Vital Sign Value Performing Clinician Facility 04-12-2022 11:15-0400 Body height 167.64 cm Gaby Islas Other [facility] Other 04-12-2022 11:15-0400 Body mass index (BMI) [Ratio] 22.27 kg/m2 Gaby Islas Other [facility] Other 04-12-2022 11:15-0400 Body temperature 98.4 [degF] Gaby Islas Other [facility] Other 04-12-2022 11:15-0400 Body weight 62.6 kg Gaby Islas Other [facility] Other 04-12-2022 11:15-0400 Respiratory rate 18 /min Gaby Islas Other [facility] Other 04-12-2022 11:15-0400 SaO2% (BldA) [Mass fraction] 99 % Gaby Islas Other [facility] Other Encounters Encounter Date Encounter Type Care Provider Facility Start: 10-09-2023 Orders Only Jean Paul Lopez Jasonrona tong DO Work Phone: [facility] Comment on above: Palpitations (Primar y Dx) Start: 09-12-2023 End: 09-12-2023 ambulatory LEO JOHNSTON Not Available Start: 12-12-2022 End: 12-13-2022 ambulatory NICOLAS GO Facility:[facility] Start: 10-17-2022 End: 10-18-[address] HARJINDER FABIAN . Facility: Start: 05-14-2022 End: 05-14-2022 ambulatory Darrel Barrow Facility:[facility] Start: 05-14-2022 End: 05-14-2022 Patient encounter procedure DO Jean Paul Arango Work Phone: [facility] [place] Start: 05-09-2022 End: 05-09-2022 Departed Referred DO Jean Paul Aponteng Work Phone: [facility] [place] Start: 04-12-2022 End: 04-12-2022 ambulatory Gaby Islas Other [facility] Other Start: 04-12-2022 Office outpatient vi sit 15 minutes Gaby Islas [facility] [address] Procedures Date Procedure Procedure Detail Performing Clinician Start: 09-09-2023 Adult depression scr eening assessment Jean Paul Arango DO Work Phone: Start: 05-14-2022 Ultrasonography of b ilateral kidneys DO Jean Paul Arango Work Phone: Start: 08-04-2020 Mammography Jean Paul boyer DO Work Phone: Urine culture DO Jean Paul Dasilva sharon Work Phone: Plan of Treatment Date Care Activity Detail Author Start: 12-02-2031 DTaP,Tdap and Td Vac cines (2 - Td or Tdap) DTaP,Tdap and Td Vaccines (2 - Td or Tdap) [facility] Start: 09-09-2024 Adult BMI Screening Adult BMI Screen ing [facility] Start: 09-09-2024 Depression Screening Depression Scre ening [facility] Start: 09-09-2024 Tobacco Screening Tobacco Screening [facility] Start: 10-14-2023 COVID-19 Vaccine () COVID-19 Vaccine () [facility] Comment on above: Postponed from 06/14 (Patient Refused) Start: 10-09-2023 End: 10-09-2024 Event monitor Event monitor Cardiac Services Routine Palpitations Expected: 10/09/2023, Expires: 10/09/2024 [facility] Comment on above: Expected: 10/09/2023 , Expires: 10/09/2024 Start: 10-09-2023 End: 10-09-2024 Holter monitor study Holter monitor 24-48 hour Cardiac Services Routine Palpitations Expected: 10/09/2023, Expires: 10/09/2024 [facility] Work Phone: Comment on above: Expected: 10/09/2023 , Expires: 10/09/2024 Start: 06-14-2023 Influenza vaccination Influenza Vacc ine [facility] Start: 05-14-2022 Ultrasonography of bilateral kidneys US renal BI [facility] Start: 05-14-2022 End: 05-14-2022 Patient encounter procedure Departed Clinical [facility] [place] Start: 08-04-2021 Screening for malign ant neoplasm of breast Mammogram [facility] Start: 1998 Screening for malign ant neoplasm of cervix Pap Smear [facility] Start: 1975 Tobacco Counseling Tobacco Counselangle lopez [facility] Immunizations Immunization Date Immunization Notes Care Provider Morgan shayanhammad 10-26-2022 Influenza, injectabl e, Madin Elif Canine Kidney, preservative free, quadrivalent Jean Paul Furlong DO Work Phone: [facility] 10-26-2022 influenza virus vaccine, unspecified formulation Jean Paul Furlong DO Work Phone: [facility] 12-02-2021 influenza, injectabl e, quadrivalent, preservative free Jean Paul Furlong DO Work Phone: [facility] 12-02-2021 tetanus toxoid, redu adin diphtheria toxoid, and acellular pertussis vaccine, adsorbed Jean Paul Furlong DO Work Phone: [facility] 05-16-2021 COVID-19 Vaccine, vector-nr, rS-Ad26, PF, 0.5mL Jean Paul Furlong DO Work Phone: [facility] 05-11-2020 hepatitis A vaccine, adult dosage Jean Paul Furlong DO Work Phone: [facility] 07-14-2019 hepatitis A vaccine, adult dosage Jean Paul Furlong DO Work Phone: [facility] 07-14-2019 influenza, seasonal, injectable Jean Paul Furlong DO Work Phone: [facility] 07-08-2019 influenza, injectabl e, quadrivalent, contains preservative Jean Paul Furlong DO Work Phone: [facility] 05-04-1999 hepatitis B vaccine, adult dosage Jean Paul Furlong DO Work Phone: [facility] Payers Date Payer Category Payer Unknown [id number] 2023 Unknown [employer] BCBS OUT OF STATE PPO/TRUST [id number] 2023-Present [phone] [address] [place] [address] [id number] 2022 Unknown [id number] 1975 Unknown [id number] 1975 Unknown [id number] 1957 Self-pay [id number] 1957 Unknown [id number] [facility] [id number] Private Health Insurance [employer] [id number] Unknown O [id number] Unknown [id number] Unknown [id number] Worker's Compensation [id number] Social History Date Type Detail Facility Unknown if ever smoked [facility] Other Start: 09-18-2022 End: 09-09-2023 Sex Assigned At [facility] Other Start: 01-07-2020 Tobacco smoking stat [facility] Current some day smoker [facility] Start: 1975 Sex Assigned At Female F [facility] Start: 09-09-1996 [facility] Start: 09-09-1996 History of tobacco use [facility] Start: 09-18-2022 End: 09-09-2023 Cigarettes smoked current (pack per day) - Reported [facility] Start: 09-09-2023 Tobacco use and exposure Smokeless tobacco non-user [facility] Start: 09-09-2023 Alcohol intake Current drinke r of alcohol (finding) [facility] Has the [employer], or [employer] threatened to shut off services in your home in past 12Mo No [facility] Are you now , , , , never or living with a partner? [facility] How often to you hav e a drink containing alcohol? 2-4 times a month [facility] How many standard drinks containing alcohol do you have on a typical day? 3 or 4 [facility] How often do you hav e 6 or more drinks on 1 occasion? Less than monthly [facility] How hard is it for y ou to pay for the very basics like food, housing, medical care, and heating Not very hard [facility] Adolescent depressio n screening assessment 0 [facility] Do you feel stress - tense, restless, nervous, or anxious, or unable to sleep at night because your mind is troubled all the time - these days [OSQ] To some extent [facility] Start: 09-18-2022 Education 15 [facility] Start: 1975 Sex Assigned At Not on file P [facility] Evaluation note 04-12-2022 Note Date & Type Note Facility 04-12-2022 Evaluation note Encounter Date Diagnosis Assessment Notes Mar, Poison janell (ICD-10 - L23.7) Pt received 60mg IM Kenalog in office today. Pt tolerated well. Performed by Sigifredo Martinez CMA. Pt to take meds as prescribed -- start tomorrow. No other nsaids while on steroid. Pt to avoid contact with allergen. Avoid hot showers as it draws out rash. Pt to use topical calamine lotion or benadryl cream prn for itching. Rx hydroxyzine orn for itching - discussed drowsy side effects. Pt to f/u with pcp as needed for persistent or worsening symptoms. Pt understood and agreed to treatment plan. [facility] Other Clinical Note 04-10-2022 Note Date & Type Note Facility 04-10-[address] Arango referral HPI Staff This is a 46 year old female referred by Dr. Arango for hematuria. Pt. was last seen 2016 for dysuria, feeling of incomplete bladder emptying, urgency, and asymptomatic micro hematuria. S/P Cysto/UD done 08/15/17. Pt. states she feels a air bubble in her urethral for about a 1 year. Pain with urination:No Blood in urine:Pt. seen gross hematuria about 2 month ago. UA shows moderate today. Incomplete bladder emptying:No Frequency:2-3x's day Urgency:No Nocturia:1x Pt. state as soon as she lays down she will have to urinate Hesitancy:No Urination requires straining:No Stream:strong stream Stream starts and stops:No Leaking before getting to the restroom:occasionally only if she holds her urine to long Urinary incontinence without sensory awareness:No Temporarily unable to restrain urination with body movement:yes Wearing pad/Depends:No Urine odor:No Flank/Back pain:No Abdominal pain:No History of Present Illness Tests reviewed: reviewed UA, old records. I have reviewed the previous health record information and history for this patient from Dr. Barrow. I have reviewed and verified the staff HPI to be accurate for this encounter. There have been no associated fever, chills, flank pain, or blood in the urine. Denies any urinary infections since last encounter. Review of Systems ROS - Provider Constitutional: denies weight loss, denies hot flashes. Eyes: denies eye problems. Gastrointestinal: denies nausea, denies vomiting. Cardiovascular: denies chest pain or angina. Integumentary: no dryness Musculoskeletal: denies musculoskeletal symptoms. ENMT: denies otolaryngeal symptoms. Respiratory: no shortness of breath. Heme/Lymph: denies easy bleeding tendency, denies easy bruising tendency. Psychiatric: no confusion, no anxiety. Genitourinary: denies vaginal discharge, denies incontinence, denies dysuria, denies hematuria, denies urinary frequency, denies amenorrhea, denies menorrhagia, denies abnormal bleeding, denies pelvic pain, denies genital sores, and denies decreased libido. Physical Exam General Appearance: alert , no acute distress, well nourished, well developed female. Head: normocephalic . Eyes: normal orbit and globe. ENMT: normal examination of external ears. Chest: Lungs CTA, respirations non labored . Cardiovascular: regular rate and rhythm. Abdomen: soft, non distended, no tenderness, no mass or organomegaly, no hernia. Genitourinary: bladder nonpalpable, no flank tenderness. Lymph Nodes: unremarkable palpation of the cervical area. Skin: warm, dry, no bruising. Psychiatric: cooperative, affect appropriate for age, normal judgement, euthymic mood. Assessment/Plan 1. Gross hematuria (R31.0: Gross hematuria) S/p Cysto/UD 08/15/2017. FISH/Cytology negative 2016 Discussed options. The patient is aware that a distinct etiology of the hematuria may not be clear upon conclusion of the workup. Will initiate hematuria workup to include upper urinary tract imaging, as well as evaluation of the urinary cells with urine cytology and possible a FISH test. A cystoscopy will be scheduled to rule out lower urinary tract pathology. The rationale for this workup has been discussed, and all questions have been answered. Informed consent will be obtained. Prophylactic antibiotics will be given. Pt. has seen visible blood about 2 months ago. UA today - moderate. Will send today's sample for FISH/cytology. Will schedule Cysto.The risks and benefits for cystoscopy have been discussed. The risks include bleeding, infection, and irritation of the bladder and urinary channel, among others. The patient, after being informed of procedural details and after questions have been answered, wishes to proceed. Full informed consent has been obtained. Will order Local anesthesia. ABX sent to pharmacy. 2. Nocturia (R35.1: Nocturia) 2-3x/night. 3. Smoker (F17.200: Nicotine dependence, unspecified, uncomplicated) Pt. aware of the increased risk of bladder cancer with smoking. Well this patient phillips have seen 5 years ago for microhematuria night scope to dilated her then with visual [employer] negative couple of weeks ago few peed pure blood apparently couple times or maybe is a month ago and painless in total. She smokes to get bad poison janell. He has moderate blood in the urine today there is no evidence of infection so we will just do a FISH cytology I will do a scope on this patient and I find nothing see nothing and I want to do an ultrasound of her kidneys that would be the final thing. Probably just had an infection but first and foremost she is on high-dose of steroids for her overwhelming poison janell possibly for put poison oak Follow-up With When Contact Information KAHLIL CARDOZA, Darrel López, URL [address] [facility] [place] [address]- Additional Instructions: schedule Cysto Patient Education Hematuria, Adult I, Nelli Gallo, personally scribed for (more content not included)... [facility] Comment on above: Result Comment: Elec tronically Signed By: Darrel BARROW MD\.br\Date and Time Signed: 04/10/22 13:42 EDT\.br\Electronically Co-Signed By: Nelli Gallo\.br\Date and Time Co-Signed: 04/10/22 13:26 EDT History general Narrative - Reported 01-06-2007 Note Date & Type Note Facility 01-06-2007 History general N arrative - Reported Type Medical History Tobacco dependence Medical History Chronic pain syndrome Medical History Rheumatoid arthtitis Medical History Heartburn Medical History Dysphagia Medical History 01/06/07 Colonoscopy-Crohn's Medical History 07/08/03 Colonoscopy- Crohn's, polyp-hyperplastic Medical History 03/05/00 EGD/Colonosc opy-normal EGD, Crohn's Medical History 01/28/2014 EGD with b iopsy, Colonoscopy and polypectomy- esophageal spasm dialated, active Crohn's, flat polyp snared and removed, rectum hemrrhoids Medical History Crohns disease Medical History anxiety Medical History Encounter for smokin g cessation counseling Medical History 05/08/17 Crohn disease terminal i leum Surgical History hysterectomy Hospitalization History see surgical hx [facility] Other Evaluation note Note Date & Type Note Facility Evaluation note No assessment information availa [facility] Work Phone: Evaluation note Note Date & Type Note Facility Evaluation note Diagnosis Palpitations- Primary documented in this encounter [facility] Instructions Note Date & Type Note Facility Instructions Not on filedocumented in this en counter [facility] Summary Purpose Family History Relationship Condition Age at Onset Recorded Date/T ashly Not Specified Malignant neoplasm of thyroid gland Unkn own father Diabetes mellitus Unknown Advance Directives Advance Directive Response Recorded Date/ Time Advance Directives No June 12:08pm Chief Complaint and Reason for Visit Chief Complaint Hematuria r31.0 Additional Source Comments INFORMATION SOURCE (unrecogn ized section and content) DATE CREATED AUTHOR 11/09/2021 [facility] DATE CREATED AUTHOR AUTHOR'S ORGANIZ ATION 03/08/2022 [facility] DATE CREATED AUTHOR AUTHOR'S ORGANIZ ATION 05/16/2022 [facility] DATE CREATED AUTHOR AUTHOR'S ORGANIZ ATION 12/18/2022 [facility] DATE CREATED AUTHOR AUTHOR'S ORGANIZ ATION 07/26/2023 [facility] DATE CREATED AUTHOR AUTHOR'S ORGANIZ ATION 09/15/2023 [facility] EPIC REASON FOR VISIT (unrecogniz ed section and content) RASH Care Teams (unrecognized sec tion and content) Team Status: Inactive Member Role Status Dates Jean Paul Arango DO Primary Care Provider Active Darrel Barrow MD Attending Provider Active Team Status: Active Member Role Status Dates Jean Paul Arango DO Primary Care Provider Active [employer]er Relationship Specialty Start Date End Date Jean Paul Arango DO [address] [facility] [place] [address] PCP - General Family Medicine 06/15/22 Goals (unrecognized section and content) Goals may be documented in a n alternate section FOR RECORDS PERTAINING TO PATIENTS WHO ARE OR HAVE BEEN ENROLLED IN A CHEMICAL DEPENDENCY/SUBSTANCEABUSE PROGRAM, SOME INFORMATION MAY BE OMITTED. This clinical summary was aggregated from multiple sources. Caution should be exercised in using it in the provision of clinical care. This summary normalizes information from multiple sources, and as a consequence, information in this document may materially change the coding, format and clinical context of patient data. In addition, data may be omitted in some cases. CLINICAL DECISIONS SHOULD BE BASED ON THE PRIMARY CLINICAL RECORDS. [employer] [facility]. provides no warranty or guarantee of the accuracy or completeness of information in this document.
[2024-04-01 10:45] VITALS: BP 168/107; PULSE 87; TEMP 36.6; O2SAT 100; BMI 25.0
--- NOTE | 2024-04-01 11:24 | ED.GENADUL1 ---
HPI HPI - General Adult General Chief complaint: Abdominal Pain Stated complaint: ABDOMINAL PAIN Time Seen by Provider: 04/01/24 10:35 Source: patient Mode of arrival: walk-in Limitations: no limitations History of Present Illness HPI narrative: Patient presents to ED complaining of abdominal pain and generalized pain. She also reports that she has been having diarrhea. She has a history of RA and history of Crohn's. She states she has not really had a flare like this in about a year. She states when she gets like this she usually needs IV steroids and that typically helps. She did see her doctor who wrote her for a Medrol Dosepak p.o. but she states IV steroids help more. She denies fevers but she states she has been in bed for the past few days and has generalized swelling and pain. She is alert and oriented resting in the bed. Vital signs stable. Initial blood pressure was slightly hypertensive. No fever here. She denies acute abdominal pain just generalized pain in her abdomen. Related Data Allergies Allergy/AdvReac Type Severity Reaction Status Date / Time No Known Drug Allergies Allergy Verified 04/01/24 12:09 Opioid HPI Opioid Management Most Recent Opioid Data: No Data to Display Review of Systems ROS Status of ROS 10 or more systems reviewed and unremarkable except as noted in history and below Exam Narrative Exam Narrative: Time Seen: [] Vital Signs: [Per nurse's notes.] General: [Alert] Skin: [Warm, dry, no rash.] Head: [Normocephalic, atraumatic.] Neck: [Supple, trachea midline.] Eye: [Pupils are equal, round and reactive to light, extraocular movements are intact, normal conjunctiva.] Ears, nose, mouth and throat: oral mucosa moist. Cardiovascular: [Regular rate and rhythm, no murmur.] Respiratory: [Lungs are clear to auscultation, respirations are non-labored, breath sounds are equal.] Chest wall: [No tenderness, no deformity.] Gastrointestinal: [Soft, Mild generalized tendernessNo rebound no guard, non distended, normal bowel sounds.] MSK: 5 out of 5 muscle strength x 4 extremities no calf pain or edema Lymphatics: [No lymphadenopathy.] Psychiatric: [Cooperative, appropriate mood & affect.] Neurological: [Alert and oriented to person, place, time, and situation, no focal neurological deficit observed.] Constitutional Vital Signs, click to edit/add: Last Vital Signs Temp 97.9 F 04/01/24 10:45 Pulse 88 04/01/24 12:54 Resp 18 04/01/24 12:54 BP 126/88 04/01/24 12:54 Pulse Ox 98 04/01/24 12:54 O2 Del Method Room Air 04/01/24 10:45 Course Vital Signs Vital signs: Vital Signs Temperature 97.9 F 04/01/24 10:45 Pulse Rate 87 04/01/24 10:45 Respiratory Rate 18 04/01/24 10:45 Blood Pressure 168/107 H 04/01/24 10:45 Pulse Oximetry 100 04/01/24 10:45 Oxygen Delivery Method Room Air 04/01/24 10:45 Temperature 97.9 F 04/01/24 10:45 Pulse Rate 88 04/01/24 12:54 Respiratory Rate 18 04/01/24 12:54 Blood Pressure 126/88 04/01/24 12:54 Pulse Oximetry 98 04/01/24 12:54 Oxygen Delivery Method Room Air 04/01/24 10:45 Medical Decision Making MDM Narrative Medical decision making narrative: Patient is feeling much better after IV steroids and IV Toradol. She has a Medrol Dosepak at home already that she will start tomorrow. Return to ED if anything worsens. 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 Differential Diagnosis Differential Diagnosis: RA flare, Crohn's flare, infection Medical Records Medical records reviewed: Yes I reviewed the patient's medical records Lab Data Lab results reviewed: Yes I reviewed the patient's lab results Labs: Lab Results 04/01/24 Range/Units 10:54 WBC 6.9 (4.0-11.0) 10^3/uL RBC 4.37 (4.20-5.40) 10^6/uL Hgb 13.6 (12.0-16.0) g/dL Hct 42.0 (36.0-48.0) % MCV 96.1 (81.0-99.0) fL MCH 31.1 (26.7-34.0) pg MCHC 32.4 (29.9-35.2) g/dL RDW 12.8 (11.0-15.0) % Plt Count 287 (150-450) 10^3/uL MPV 9.8 (9.5-13.5) fL Neut % (Auto) 60.2 (43.0-75.0) % Lymph % (Auto) 31.8 (20.5-60.0) % Oliver % (Auto) 4.3 (1.7-12.0) % Eos % (Auto) 2.5 (0.9-7.0) % Baso % (Auto) 0.9 (0.2-2.0) % Neut # (Auto) 4.2 (1.4-6.5) 10^3/uL Lymph # (Auto) 2.2 (1.2-3.8) 10^3/uL Oliver # (Auto) 0.3 (0.3-0.8) 10^3/uL Eos # (Auto) 0.2 (0.0-0.7) 10^3/uL Baso # (Auto) 0.1 (0.0-0.1) 10^3/uL Abs Immat Gran (auto) 0.02 (0.00-0.03) 10^3/uL Imm/Tot Granulo (auto) 0.3 (0.0-0.5) % Sodium 140 (136-145) mmol/L Potassium 3.7 (3.5-5.1) mmol/L Chloride 105 (98-107) mmol/L Carbon Dioxide 29.4 (21.0-32.0) mmol/L Anion Gap 9.3 BUN 10.0 (7.0-18.0) mg/dL Creatinine 0.88 (0.55-1.02) mg/dL Est GFR ( Amer) >60 (>=60) Est GFR (Non-Af Amer) >60 (>=60) BUN/Creatinine Ratio 11.4 Glucose 103 (74-106) mg/dL Calcium 9.0 (8.5-10.1) mg/dL Magnesium 2.2 (1.8-2.4) mg/dL Total Bilirubin 0.2 (0.2-1.0) mg/dL AST 20 (15-37) U/L ALT 31 (14-59) U/L Alkaline Phosphatase 94 (46-116) U/L Total Protein 7.0 (6.4-8.2) g/dL Albumin 3.5 (3.4-5.0) g/dL Globulin 3.5 g/dL Albumin/Globulin Ratio 1.0 Discharge Plan Discharge Stand Alone Forms: Portal Instructions Chief Complaint: Abdominal Pain Clinical Impression: Abdominal pain Patient Disposition: Home, Self-Care Time of Disposition Decision: 12:48 Condition: Good Mode of Transportation: Private Vehicle Print Language: Luxembourger Instructions: Abdominal Pain (ED) Referrals: JORDAN STAPLES [Primary Care Provider] - 1 week Discharge Date/Time: 04/01/24 12:56
[2024-04-01] MEDS: 0.9 % SODIUM CHLORIDE 1,000 ML 1000 ML IV (11:35)
[2024-04-01 11:36] LABS: Basophils Absolute Auto 0.1 10^3/uL (0.0-0.1); Basophils Percent Auto 0.9 % (0.2-2.0); Eosinophils Absolute Auto 0.2 10^3/uL (0.0-0.7); Eosinophils Percent Auto 2.5 % (0.9-7.0); Hemoglobin 13.6 g/dL (12.0-16.0); Immature Granulocytes Abs Auto 0.02 10^3/uL (0.00-0.03); Immature Granulocytes Pct Auto 0.3 % (0.0-0.5); Lymphocytes Absolute Auto 2.2 10^3/uL (1.2-3.8); Lymphocytes Percent Auto 31.8 % (20.5-60.0); Mean Corpuscular HGB Conc 32.4 g/dL (29.9-35.2); Mean Corpuscular Hemoglobin 31.1 pg (26.7-34.0); Mean Corpuscular Volume 96.1 fL (81.0-99.0); Mean Platelet Volume 9.8 fL (9.5-13.5); Monocytes Absolute Auto 0.3 10^3/uL (0.3-0.8); Monocytes Percent Auto 4.3 % (1.7-12.0); Neutrophils Absolute Auto 4.2 10^3/uL (1.4-6.5); Neutrophils Percent Auto 60.2 % (43.0-75.0); Platelet Count 287 10^3/uL (150-450); Red Blood Count 4.37 10^6/uL (4.20-5.40); Red Cell Distribution Width 12.8 % (11.0-15.0); White Blood Count 6.9 10^3/uL (4.0-11.0)
[2024-04-01] MEDS: DEXAMETHASONE SOD PHOS 10 MG/ML VIAL IV (11:36)
[2024-04-01] MEDS: KETOROLAC TROMETHAMINE 30 MG/ML VIAL IVP (11:36)
[2024-04-01 11:57] LABS: Alanine Aminotransferase 31 U/L (14-59); Albumin Level 3.5 g/dL (3.4-5.0); Alkaline Phosphatase 94 U/L (46-116); Anion Gap 9.3; Aspartate Amino Transferase 20 U/L (15-37); BUN Creatinine Ratio 11.4; Bilirubin Total 0.2 mg/dL (0.2-1.0); Carbon Dioxide 29.4 mmol/L (21.0-32.0); Chloride 105 mmol/L (98-107); Estimated GFR (African America >60 (>=60); Estimated GFR (Non-African Ame >60 (>=60); Globulin 3.5 g/dL; Glucose 103 mg/dL (74-106); Magnesium 2.2 mg/dL (1.8-2.4); Potassium 3.7 mmol/L (3.5-5.1); Sodium 140 mmol/L (136-145)
[2024-04-01 12:54] VITALS: BP 126/88; PULSE 88; O2SAT 98
== END 2024-04-01 12:56 | disposition home or self-care (01) ==
PROVIDERS: Emergency Provider Emergency Medicine; PCP Family Medicine
DX: R10.9 Unspecified abdominal pain (principal); M06.9 Rheumatoid arthritis, unspecified; K50.90 Crohn's disease, unspecified, without complications
CPT/HCPCS: 36415; 80053; 83735; 85025; 96361; 96374; 96375; 99284; J1100; J1885

== ENCOUNTER 2024-12-05 17:44 | Emergency (ER) | payer SELFPAY ==
[2024-12-05 17:48] VITALS: BP 140/88; PULSE 80; TEMP 36.6; O2SAT 100; BMI 24.5
--- OUTSIDE RECORDS SUMMARY | 2024-12-05 17:49 | XMS_ITS | CCD ---
Author Organization [facility] CliniSyms Care Team Providers Care Training And Development Assistant Name Role Phone Gaby Islas Unavailable DO Jean Paul Arango Primary Care Provider MD Darrel Barrow Attending Provider MARKER ., DR GRANDE Attending Unavailable MARKER ., DR GRANDE Admitting Unavailable GRECHNY ., KERRY MURRY Consulting Unavailmynor e JHOAN, DR JEAN PAUL Wilks Primary Care Unavailable MARKER ., DR GRANDE Consulting Unavailable YAZ JEROME Consulting Unavailable Honorio Jasso Consulting Unavailable NICOLAS GO Attending Unavailable NICOLAS GO Admitting Unavailable FURRACHEL, DR JEAN PAUL Wilks Primary Care Unavailable NICOLAS GO Consulting Unavailable LEO JOHNSTON Attending Unavailable Jean Paul Arango DO Primary Care Provider Obkamilla RICHARDS-CAnnalee Attending Provider Annalee Sasmon Admitting Unavailable Annalee Samson Attending Unavailable Jean Paul Arango Primary Care Unavailable JEAN PAUL ARANGO Primary Care Unavailable XIOMARA RENDON Attending Unavailable Jean Paul Arango DO Primary Care Provider Jean Paul Arango DO Primary Care Provider JEAN PAUL ARANGO Attending Unavailable JEAN PAUL ARANGO Referring Unavailable JEAN PAUL ARANGO Primary Care Unavailable JEAN PAUL ARANGO Attending Unavailable JEAN PAUL ARANGO Referring Unavailable JEAN PAUL ARANGO Primary Care Unavailable SARAHI LOBO Attending Unavailable JEAN PAUL ARANGO Primary Care Physician Allergies Allergy Classification Reported Allergen(s) Allergy Type Date of Onset Reaction(s) Facility (13 sources) inFLIXimab; Translations: [INFLIXIMAB] Drug Allergy 3 Anaphylaxis, Anaphylactic shock due to serum (disorder) [facility] (2 sources) inFLIXimab; Translations: [Remicade] Drug Allergy 5 [facility] (1 source) inFLIXimab Drug Allergy 2 [facility] Medications Current Medications Medication Drug Class(es) Dates Sig (Normalized) Sig (Original) azithromycin 250 mg oral tablet (3 sources) Macrolide Antimicrobial Start: 01-07-2020 Azithromycin 250 mg tablet Active 250 MG PO Daily January 06, 2020 11:00pm Take two tabs (500mg) on day 1 then take one tab daily for 4 days cyclobenzaprine hydrochloride 10 mg oral tablet (15 sources) Muscle Relaxant Start: 09-09-2023 take 3 tablets by mouth once daily at bedtime cyclobenzaprine (FLEXERIL) 10 mg tablet cyclobenzaprine 10 mg tablet TAKE 3 TABLETS BY MOUTH EVERY DAY AT BEDTIME 09/09/2023 Active Start: 04-10-2022 cyclobenzaprin e 10 mg Tab 10 mg = 1 tab(s) Start Date: 04/10/22 Status: Ordered Start: 07-08-2017 End: 08-06-2019 take 3 tablets by mouth at bedtime Cyclobenzaprine 10 mg Tablet Active 30 MG PO Bedtime August 05, 2019 11:00pm Start: 07-08-2017 End: 08-06-2019 take 30 mg by mouth at bedtime Cyclobenzaprine Active 30 MG PO Bedtime August 06, 2019 12:00am Cymbalta 60 mg Cap-DR (1 source) Start: 04-10-2022 take 1 capsule by mouth once daily Cymbalta 60 mg Cap-DR 60 mg, Oral, Daily Start Date: 04/10/22 Status: Ordered DULoxetine 30 mg delayed release oral capsule (8 sources) Serotonin and Norepinephrine Reuptake Inhibitor Start: 08-20-2022 take 1 capsule by mouth in the morning DULoxetine (CYMBALTA) 30 mg capsule TAKE 1 CAPSULE BY MOUTH IN THE MORNING WITH 60MG DOSE FOR A TOTAL OF 90MG 08/20/2022 Active take 1 capsule by [facility] every twelve hours Cymbalta 20 MG 1 capsule Orally Twice a day Active estradiol 0.1 mg/ml vaginal cream (9 sources) Estrogen Start: 11-05-2024 Estrace 0.1 mg /g Cream See Instructions, 42.5 gm, Refill(s) 6, apply a pea-sized amount vaginally and around the urethra nightly x 3 weeks, then 3x per week thereafter, [facility]pharm[facility] #[id number], 165, cm, 11/05/24 11:36:00 EST, Height/Length Dosing, 70.2, kg, 11/05/24 11:36:00 EST, Weight Dosing Start Date: 11/05/24 Status: Ordered Start: 04-10-2022 take 1 tablet by cricket th once daily estradioL (ESTRACE) 2 mg tablet estradiol 2 mg tablet TAKE 1 TABLET BY MOUTH EVERY DAY 04/10/2022 Active Estrogens, Conjugated (HALF-WAY) (1 source) Estrogen Estrogens Conjug ated Active famotidine 20 mg oral tablet (11 sources) Histamine-2 Receptor Antagonist Start: 05-23-2024 End: 06-01-2024 take 20 mg by mouth once daily famotidine 20 mg, Oral, Daily, Refills(s) 0 Start Date: 11/05/24 Status: Ordered Start: 09-09-2023 End: 05-23-2024 take 1 tablet by mouth once daily famotidine (PEPCID) 20 mg tablet Indications: Gastroesophageal reflux disease, unspecified whether esophagitis present Take 1 tablet (20 mg total) by mouth nightly. 90 tablet 2 09/09/2023 05/23/2024 Discontinued take 1 tablet by cricket th every twenty-four hours Pepcid 20 mg 1 tablet Orally Once a day for 1 month Active FLUoxetine (1 source) Serotonin Reuptake Inhibitor Fluoxetine Active hydrOXYzine hydrochloride 25 mg oral tablet (1 source) Antihistamine Start: 04-12-20 take 1 tablet by mouth every eight hours as needed hydrOXYzine HCl 25 MG 1 tablet as needed at nighttime Orally every 8 hrs for 7 days Mar, Active ibuprofen 800 mg oral tablet (10 sources) Nonsteroidal Anti-inflammatory Drug Start: 04-10-20 ibuprofen (MOTRIN) 800 mg tablet 04/10/2022 Active Start: 07-08-2017 End: 12-20-2017 take 1 tablet by mouth every four to six hours as needed for pain Ibuprofen 600 mg Tablet Discontinued 600 MG PO EVERY 4-6 HOURS as needed for Pain July 07, 2017 11:00pm December 20, 2017 11:24am lansoprazole 15 mg delayed release oral capsule (3 sources) Proton Pump Inhibitor Start: 07-08-2017 take 1 capsule by mouth once daily at bedtime Lansoprazole (Prevacid) 15 mg Capsule,Delayed Release(Dr/Ec) Active 15 MG PO Daily at bedtime July 07, 2017 11:00pm LORazepam 1 mg oral tablet (12 sources) Benzodiazepine Start: 04-10-2022 take 1 tablet by mouth once daily at bedtime LORazepam (ATIVAN) 1 mg tablet TAKE 1 TABLET BY MOUTH EVERYDAY AT BEDTIME 08/20/2022 Active Start: 07-08-2017 take 1 tablet by cricket th once daily at bedtime as needed for anxiety Lorazepam (Ativan) 0.5 mg Tablet Active 0.5 MG PO Daily at bedtime as needed for anxiety July 07, 2017 11:00pm methylPREDNISolone 4 mg oral tablet (1 source) Corticosteroid Start: 04-12-2022 methylPREDNISolone 4 MG as directed Orally Mar, Active traMADol hydrochloride 50 mg oral tablet (9 sources) Opioid Agonist Start: 04-10-2022 take 1 tablet by mouth twice daily as needed traMADoL (ULTRAM) 50 mg tablet Take 1 tablet (50 mg total) by mouth 2 (two) times a day as needed. 08/26/2024 Active Start: 07-08-2017 take 1 tablet by cricket th once daily as needed for pain Tramadol 100 mg Tablet Extended Release 24 Hr Active 100 MG PO Daily as needed for Pain July 07, 2017 11:00pm 0.5 ml ustekinumab 90 mg/ml injection (3 sources) Interleukin-12 Antagonist, Interleukin-23 Antagonist Start: 08-21-2017 Ustekinumab (Stelara) 45 mg/0.5 mL Solution Active 0.5 ML SUBCUT EVERY 6 WEEKS August 21, 2017 12:00am Completed/Discontinued Medications Medication Drug Class(es) Dates Sig (Normalized) Sig (Original) acetaminophen 500 mg oral tablet (1 source) Start: 09-19-2024 End: 09-19-2024 take 4000 mg by mouth every twenty-four hours 1,000 mg, Oral, ONCE, 1 dose, On 09/19/24 at 0440, Maximum dose of acetaminophen is 4000 mg from all sources in 24 hours. acetaminophen 21.7 mg/ml / HYDROcodone bitartrate 0.5 mg/ml oral solution (3 sources) Opioid Agonist Start: 08-23-2019 End: 01-07-2020 take 1 mL by mouth four times daily Hydrocodone-Acetam inophen 7.5-325 mg/15 mL solution Discontinued 5 ML PO Four times daily August 23, 2019 12:00am January 07, 2020 6:17am celecoxib 100 mg oral capsule (3 sources) Nonsteroidal Anti-inflammatory Drug Start: 08-06-2019 End: 08-14-2019 take 1 capsule by mouth twice daily Celecoxib (Celebrex) 100 mg Capsule Discontinued 100 MG PO Twice daily August 05, 2019 11:00pm August 14, 2019 8:18am Dexamethasone (1 source) Corticosteroid Start: 09-19-2024 End: 09-19-2024 take 1 dose by mouth once 10 mg, Oral, ONCE, 1 dose, On 09/19/24 at 0542 iopamidol (ISOVUE-370) 76 % injection 75 mL (1 source) Start: 09-19-2024 End: 09-19-2024 take 1 dose intravenously once 75 mL, IntraVENous, IMG ONCE PRN, 1 dose, Starting on 09/19/24 at 0048, Until 09/19/24 at 0212, Other Ketorolac (1 source) Nonsteroidal Anti-inflammatory Drug, Cyclooxygenase Inhibitor Start: 05-27-2016 Toradol per 15 mg May, 30 mg 1 ml morphine sulfate 4 mg/ml injection (1 source) Opioid Agonist Start: 09-19-2024 End: 09-19-2024 4 mg, IntraVENous, ONCE, 1 dose, On 09/19/24 at 0542 nabumetone 750 mg oral tablet (1 source) Nonsteroidal Anti-inflammatory Drug Start: 09-21-2024 End: 10-05-2024 nabumetone (RELAFEN) 750 mg tablet 09/21/2024 10/05/2024 Discontinued (Therapy completed) naproxen 500 mg oral tablet (3 sources) Nonsteroidal Anti-inflammatory Drug Start: 12-20-2017 End: 11-27-2018 take 1 tablet by mouth twice daily as needed for pain Naproxen 500 mg tablet Discontinued 500 MG PO Twice daily as needed for pain December 20, 2017 12:00am November 27, 2018 2:22pm administer with food or milk salsalate 750 mg oral tablet (6 sources) Start: 08-06-2019 End: 08-14-2019 take 1 tablet by mouth once daily at bedtime as needed for pain Salsalate 750 mg Tablet Discontinued 1500 MG PO Daily at bedtime as needed for Pain August 05, 2019 11:00pm August 14, 2019 8:18am Start: 08-06-2019 End: 08-14-2019 take 1500 mg by mouth once daily at bedtime Salsalate Discontinued 1500 MG PO Daily at bedtime August 06, 2019 12:00am August 14, 2019 9:18am Start: 07-08-2017 End: 08-06-2019 take 1 tablet by mouth twice daily Salsalate 750 mg Tablet Discontinued 1500 MG PO Twice daily July 07, 2017 11:00pm August 06, 2019 4:03pm Start: 07-08-2017 End: 08-06-2019 take 1500 mg [...] PRE-EMPLOYMENT EXAM] Onset: 12-12-2022 Episodic Anxiety disorders (7 sources) Generalized anxiety disorder; Translations: [Generalized anxiety disorder] Onset: 05-22-2021 09-18-2022 Chronic Cardiac dysrhythmias (7 sources) Premature atrial contraction; Translations: [Atrial premature depolarization] Onset: 05-30-2020 09-18-2022 Chronic Chronic obstructive pulmonary disease and bronchiectasis (3 sources) Bronchitis; Translations: [Bronchitis, not specified as acute or chronic] 01-07-2020 Episodic Disorders of teeth and jaw (2 sources) Jaw pain; Translations: [Jaw pain] Onset: 10-05-2024 10-05-2024 Episodic Esophageal disorders (14 sources) Diffuse spasm of esophagus; Translations: [Dyskinesia of esophagus] Onset: 09-18-2022 09-18-2022 Chronic Fluid and electrolyte disorders (3 sources) Dehydration; Translations: [Dehydration] 08-23-2019 Episodic Headache; including migraine (1 source) Headache; Translations: [Nonintractable headache, unspecified chronicity pattern, unspecified headache type] 09-19-2024 Episodic Headache; including migraine (1 source) Headache; including migraine; Translations: [Headache, unspecified] Onset: 09-18-2024 Hemorrhoids (2 sources) Hemorrhoids; Translations: [Other hemorrhoids] Episodic Mood disorders (1 source) Depressive disorder 11-05-2024 Chronic Nausea and vomiting (1 source) Nausea; Translations: [Nausea] Episodic Nonspecific chest pain (2 sources) Atypical chest pain; Translations: [Other chest pain] Onset: 10-05-2024 10-05-2024 Episodic Osteoarthritis (2 sources) Arthritis 11-07-2016 Chronic Other and unspecified benign neoplasm (1 source) [...] [Other specified disorders of muscle] Episodic Other connective tissue disease (1 source) Other muscle spasm; Translations: [Other muscle spasm] Onset: 09-18-2024 Episodic Other connective tissue disease (1 source) Spasm; Translations: [Other muscle spasm] 09-19-2024 Episodic Other diseases of bladder and urethra (1 source) Male urethral stricture; Translations: [Unspecified urethral stricture, male, unspecified site] Onset: 11-04-2024 Episodic Other diseases of bladder and urethra (1 source) Urethral stricture 11-04-2024 Episodic Other gastrointestinal disorders (1 source) Dysphagia; [...] 10-17-2022 Episodic Regional enteritis and ulcerative colitis (10 sources) Crohn's disease; Translations: [Crohn's disease, unspecified, without complications] Onset: 05-30-2020 09-18-2022 Chronic Residual codes; unclassified (1 source) Acquired absence of both cervix and uterus; Translations: [ACQUIRED ABSENCE BOTH CERVIX AND UTERUS] Onset: 10-19-2022 Episodic Rheumatoid arthritis and related disease (10 sources) Rheumatoid arthritis; Translations: [Rheumatoid arthritis, unspecified] Onset: 09-18-2022 09-18-2022 Chronic Spondylosis; intervertebral disc disorders; other back problems (1 source) Degeneration of cervical intervertebral disc; Translations: [Other cervical disc degeneration, unspecified cervical region] 10-05-2024 Chronic Spondylosis; intervertebral disc disorders; other back problems (2 sources) Sciatica, left side; Translations: [Radiculopathy, lumbar region] Onset: 10-19-2022 Episodic Sprains and strains (4 sources) Sprain of ankle; Translations: [Sprain of unspecified ligament of left ankle, initial encounter] 12-20-2017 Episodic Substance-related disorders (10 sources) Tobacco user; Translations: [Nicotine dependence, unspecified, uncomplicated] Onset: 09-18-2022 09-18-2022 Chronic Superficial injury; contusion (1 source) Contusion of ankle; Translations: [Contusion of left ankle, initial encounter] Episodic Urinary tract infections (1 source) Urinary tract infectious disease Onset: 10-22-2024 Episodic Viral infection (3 sources) Viral disease; Translations: [Viral infection, unspecified] 01-07-2020 Episodic Past or Other Problems Problem Classification Problem Date Documented Da te Episodic/Chronic Allergic reactions (1 source) Allergic contact dermatitis due to plants, except food Onset: 04-12-2022 Resolved: 04-12-2022 Episodic Cardiac dysrhythmias (8 sources) Palpitations; Translations: [Palpitations] Onset: 09-18-2022 09-18-2022 Episodic Genitourinary symptoms and ill-defined conditions (20 sources) Ben hematuria; Translations: [Gross hematuria] Onset: 09-18-2022 09-18-2022 Episodic Mood disorders (7 sources) Mood disorders Onset: 09-09-2023 Resolved: 10-05-2024 10-05-2024 Other nervous system disorders (8 sources) Facial paresthesia; Translations: [Paresthesia of skin] Onset: 05-22-2021 09-18-2022 Episodic Results Test Name Value Interpretation Reference Range Facility POCT Urinalysis Auto, W/O Mi croscopyon 10-22-2024 Appearance (U) clear [facility] External Poct Urine Bilirubin Negative [facility] External Poct Urine Blood 2+ [facility] External Poct Urine Color yellow [facility] External Poct Urine Glucose Negative [facility] External Poct Urine Ketones Negative [facility] External Poct Urine Leukocyte Esterase Negative [facility] External Poct Urine Nitrite Negative [facility] External Poct Urine Ph 6 Pr [facility] External Poct Urine Protein Negative [facility] External Poct Urine Specific [place] 1.015 [facility] External Poct Urine Urobilinogen 0.2 [facility] APTTon 09-19-2024 aPTT Coag (PPP) [Time] 29.4 s [facility] Comment on above: Effective 08/17/2020: Heparin Therapeutic Range: 64.0 98.0 seconds. Alcoholon 09-19-2024 Blood Alcohol Concentration Not indicated Normal [facility] Comment on above: Performed By: #### A LCOH #### [facility] [address] [place] [address] Ethanol [Mass/Vol] mg/dL Normal [facility] Comment on above: Performed By: #### A LCOH #### [facility] [address] [place] [address] CBC W Auto Differential pane l (Bld)on 09-19-2024 Interpretation and review of laboratory results Abnormal [facility] MCHC (RBC) [Mass/Vol] 34.9 % 33.0 - 37.0 % [facility] Seg[facility] neutrophils/100 WBC (Bld) 51.4 % [facility] CBC With Platelet and Differ entialon 09-19-2024 Basophils (Bld) [#/Vol] 0.1 10*3/uL Normal 0.0-0.2 [facility] Comment on above: Performed By: #### C BCWD #### [facility] [address] [place] [address] Basophils/100 WBC (Bld) 0.8 % Normal [facility] Comment on above: Performed By: #### C BCWD #### [facility] [address] [place] [address] Eosinophils (Bld) [#/Vol] 0.3 10*3/uL Normal 0.0-0.7 [facility] Comment on above: Performed By: #### C BCWD #### [facility] [address] [place] [address] Eosinophils/100 WBC (Bld) 3.3 % Normal [facility] Comment on above: Performed By: #### C BCWD #### [facility] [address] [place] [address] Erythrocyte distribution width (RBC) [Ratio] 13.2 % Normal 11.5-14.5 [facility] Comment on above: Performed By: #### C BCWD #### [facility] [address] [place] [address] Hematocrit (Bld) [Volume fraction] 37.2 % Normal 37.0-47.0 [facility] Comment on above: Performed By: #### C BCWD #### [facility] [address] [place] [address] Hemoglobin (Bld) [Mass/Vol] 13.0 g/dL Normal 12.0-16.0 [facility] Comment on above: Performed By: #### C BCWD #### [facility] [address] [place] [address] Lymphocytes (Bld) [#/Vol] 3.7 10*3/uL Normal 1.0-4.8 [facility] Comment on above: Performed By: #### C BCWD #### [facility] [address] [place] [address] Lymphocytes/100 WBC (Bld) 38.3 % Normal [facility] Comment on above: Performed By: #### C BCWD #### [facility] [address] [place] [address] MCH (RBC) [Entitic mass] 31.8 pg Critically high 27.0-31.3 [facility] Comment on above: Performed By: #### C BCWD #### [facility] [address] [place] [address] MCHC 34.9 % Normal 33.0-37.0 [facility] Comment on above: Performed By: #### C BCWD #### [facility] [address] [address] MCV (RBC) [Entitic vol] 91.0 fL Normal 79.4-94.8 [facility] Comment on above: Performed By: #### C BCWD #### [facility] [address] [place] [address] Monocytes (Bld) [#/Vol] 0.6 10*3/uL Normal 0.2-0.8 [facility] Comment on above: Performed By: #### C BCWD #### [facility] [address] [place] [address] Monocytes/100 WBC (Bld) 6.0 % Normal [facility] Comment on above: Performed By: #### C BCWD #### [facility] [address] [place] [address] Neutrophils (Bld) [#/Vol] 4.9 10*3/uL Normal 1.4-6.5 [facility] Comment on above: Performed By: #### C BCWD #### [facility] [address] [place] [address] Neutrophils/100 WBC (Bld) 51.4 % Normal [facility] Comment on above: Performed By: #### C BCWD #### [facility] [address] [place] [address] Platelets (Bld) [#/Vol] 329 10*3/uL Normal 130-400 [facility] Comment on above: Performed By: #### C BCWD #### [facility] [address] [place] [address] RBC (Bld) [#/Vol] 4.09 10*6/uL Low 4.20-5.40 [facility] Comment on above: Performed By: #### C BCWD #### [facility] [address] [place] [address] WBC (Bld) [#/Vol] 9.5 10*3/uL Normal 4.8-10.8 [facility] Comment on above: Performed By: #### C BCWD #### [facility] [address] [place] [address] CT HEAD WO CONTRASTon 2023 CT HEAD WO CONTRAST EXAMINATION: CT OF THE HEAD WITHOUT CONTRAST 09/19/2024 2:06 am TECHNIQUE: CT of the head was performed without the administration of intravenous contrast. Automated exposure control, iterative reconstruction, and/or weight based adjustment of the mA/kV was utilized to reduce the radiation dose to as low as reasonably achievable. COMPARISON: None. HISTORY: ORDERING SYSTEM PROVIDED HISTORY: Stroke TECHNOLOGIST PROVIDED HISTORY: Has a code stroke or stroke alert been called?->No Reason for exam:->Stroke Decision Support Exception - unselect if not a suspected or confirmed emergency medical condition->Emergency Medical Condition ([place]) What reading provider will be dictating this exam?->CRC FINDINGS: BRAIN/VENTRICLES: There is no acute intracranial hemorrhage, mass effect or midline shift. No abnormal extra-axial fluid collection. The rodriguez-white differentiation is maintained without evidence of an acute infarct. There is no evidence of hydrocephalus. ORBITS: The visualized portion of the orbits demonstrate no acute abnormality. SINUSES: The visualized paranasal sinuses and mastoid air cells demonstrate no acute abnormality. SOFT TISSUES/SKULL: No acute abnormality of the visualized skull or soft tissues. IMPRESSION: No acute intracranial abnormality. Interpreted by: Amy Hays MD Signed by: Amy Hays MD 09/19/24 Final result Normal [facility] CT Head WO contraston 2023 No acute intracranial abnormality. [facility] EXAMINATION: CT OF THE HEAD WITHOUT CONTRAST 09/19/2024 2:06 am TECHNIQUE: CT of the head was performed without the administration of intravenous contrast. Automated exposure control, iterative reconstruction, and/or weight based adjustment of the mA/kV was utilized to reduce the radiation dose to as low as reasonably achievable. COMPARISON: None. HISTORY: ORDERING SYSTEM PROVIDED HISTORY: Stroke TECHNOLOGIST PROVIDED HISTORY: Has a code stroke or stroke alert been called?->No Reason for exam:->Stroke Decision Support Exception - unselect if not a suspected or confirmed emergency medical condition->Emergency Medical Condition (MA) What reading provider will be dictating this exam?->CRC FINDINGS: BRAIN/VENTRICLES: There is no acute intracranial hemorrhage, mass effect or midline shift. No abnormal extra-axial fluid collection. The rodriguez-white differentiation is maintained without evidence of an acute infarct. There is no evidence of hydrocephalus. ORBITS: The visualized portion of the orbits demonstrate no acute abnormality. SINUSES: The visualized paranasal sinuses and mastoid air cells demonstrate no acute abnormality. SOFT TISSUES/SKULL: No acute abnormality of the visualized skull or soft tissues. [facility] Amy Hays MD - 09/19/2024 EXAMINATION: CT OF THE HEAD WITHOUT CONTRAST 09/19/2024 2:06 am TECHNIQUE: CT of the head was performed without the administration of intravenous contrast. Automated exposure control, iterative reconstruction, and/or weight based adjustment of the mA/kV was utilized to reduce the radiation dose to as low as reasonably achievable. COMPARISON: None. HISTORY: ORDERING SYSTEM PROVIDED HISTORY: Stroke TECHNOLOGIST PROVIDED HISTORY: Has a code stroke or stroke alert been called?->No Reason for exam:->Stroke Decision Support Exception - unselect if not a suspected or confirmed emergency medical condition->Emergency Medical Condition ([place]) What reading provider will be dictating this exam?->CRC FINDINGS: BRAIN/VENTRICLES: There is no acute intracranial hemorrhage, mass effect or midline shift. No abnormal extra-axial fluid collection. The rodriguez-white differentiation is maintained without evidence of an acute infarct. There is no evidence of hydrocephalus. ORBITS: The visualized portion of the orbits demonstrate no acute abnormality. SINUSES: The visualized paranasal sinuses and mastoid air cells demonstrate no acute abnormality. SOFT TISSUES/SKULL: No acute abnormality of the visualized skull or soft tissues. IMPRESSION: No acute intracranial abnormality. [facility] CTA HEAD W WO CONTRASTon CTA HEAD W WO CONTRAST EXAMINATION: CTA OF THE HEAD WITHOUT AND WITH CONTRAST 09/19/2024 1:06 am TECHNIQUE: CTA of the head/brain was performed without and with the administration of intravenous contrast. Multiplanar reformatted images are provided for review. MIP images are provided for review. Automated exposure control, iterative reconstruction, and/or weight based adjustment of the mA/kV was utilized to reduce the radiation dose to as low as reasonably achievable. COMPARISON: None HISTORY: ORDERING SYSTEM PROVIDED HISTORY: Stroke R/O Large Vessel Occlusion TECHNOLOGIST PROVIDED HISTORY: Additional Contrast?->1 Reason for exam:->Stroke R/O Large Vessel Occlusion What reading provider will be dictating this exam?->CRC FINDINGS: CT HEAD: BRAIN/VENTRICLES: No acute intracranial hemorrhage or extraaxial fluid collection. Mckeon-white differentiation is maintained. No evidence of mass, mass effect or midline shift. No evidence of hydrocephalus. ORBITS: The visualized portion of the orbits demonstrate no acute abnormality. SINUSES: The visualized paranasal sinuses and mastoid air cells demonstrate no acute abnormality. SOFT TISSUES/SKULL: No acute abnormality of the visualized skull or soft tissues. CTA HEAD: ANTERIOR CIRCULATION: No significant stenosis of the intracranial internal carotid, anterior cerebral, or middle cerebral arteries. No aneurysm. POSTERIOR CIRCULATION: No significant stenosis of the vertebral, basilar, or posterior cerebral arteries. No aneurysm. OTHER: No dural venous sinus thrombosis on this non-dedicated study. IMPRESSION: 1. No acute intracranial abnormality. 2. Unremarkable CTA of the head. Interpreted by: Debra Hunter MD Signed by: Debra Hunter MD 09/19/24 Final result Normal [facility] CTA Head vessels WO and W co ntrast Mary 09-19-2024 1. No acute intracranial abnormality. 2. Unremarkable CTA of the head. [facility] EXAMINATION: CTA OF THE HEAD WITHOUT AND WITH CONTRAST 09/19/2024 1:06 am TECHNIQUE: CTA of the head/brain was performed without and with the administration of intravenous contrast. Multiplanar reformatted images are provided for review. MIP images are provided for review. Automated exposure control, iterative reconstruction, and/or weight based adjustment of the mA/kV was utilized to reduce the radiation dose to as low as reasonably achievable. COMPARISON: None HISTORY: ORDERING SYSTEM PROVIDED HISTORY: Stroke R/O Large Vessel Occlusion TECHNOLOGIST PROVIDED HISTORY: Additional Contrast?->1 Reason for exam:->Stroke R/O Large Vessel Occlusion What reading provider will be dictating this exam?->CRC FINDINGS: CT HEAD: BRAIN/VENTRICLES: No acute intracranial hemorrhage or extraaxial fluid collection. Mckeon-white differentiation is maintained. No evidence of mass, mass effect or midline shift. No evidence of hydrocephalus. ORBITS: The visualized portion of the orbits demonstrate no acute abnormality. SINUSES: The visualized paranasal sinuses and mastoid air cells demonstrate no acute abnormality. SOFT TISSUES/SKULL: No acute abnormality of the visualized skull or soft tissues. CTA HEAD: ANTERIOR CIRCULATION: No significant stenosis of the intracranial internal carotid, anterior cerebral, or middle cerebral arteries. No aneurysm. POSTERIOR CIRCULATION: No significant stenosis of the vertebral, basilar, or posterior cerebral arteries. No aneurysm. OTHER: No dural venous sinus thrombosis on this non-dedicated study. [facility] Debra Hunter MD - 09/19/2024 EXAMINATION: CTA OF THE HEAD WITHOUT AND WITH CONTRAST 09/19/2024 1:06 am TECHNIQUE: CTA of the head/brain was performed without and with the administration of intravenous contrast. Multiplanar reformatted images are provided for review. MIP images are provided for review. Automated exposure control, iterative reconstruction, and/or weight based adjustment of the mA/kV was utilized to reduce the radiation dose to as low as reasonably achievable. COMPARISON: None HISTORY: ORDERING SYSTEM PROVIDED HISTORY: Stroke R/O Large Vessel Occlusion TECHNOLOGIST PROVIDED HISTORY: Additional Contrast?->1 Reason for exam:->Stroke R/O Large Vessel Occlusion What reading provider will be dictating this exam?->CRC FINDINGS: CT HEAD: BRAIN/VENTRICLES: No acute intracranial hemorrhage or extraaxial fluid collection. Mckeon-white differentiation is maintained. No evidence of mass, mass effect or midline shift. No evidence of hydrocephalus. ORBITS: The visualized portion of the orbits demonstrate no acute abnormality. SINUSES: The visualized paranasal sinuses and mastoid air cells demonstrate no acute abnormality. SOFT TISSUES/SKULL: No acute abnormality of the visualized skull or soft tissues. CTA HEAD: ANTERIOR CIRCULATION: No significant stenosis of the intracranial internal carotid, anterior cerebral, or middle cerebral arteries. No aneurysm. POSTERIOR CIRCULATION: No significant stenosis of the vertebral, basilar, or posterior cerebral arteries. No aneurysm. OTHER: No dural venous sinus thrombosis on this non-dedicated study. IMPRESSION: 1. No acute intracranial abnormality. 2. Unremarkable CTA of the head. [facility] CTA Head vessels WO and W co ntrast IVOrdered By: Debra Hunter on 09-19-2024 [facility] Work Phone: CTA NECK W WO CONTRASTon CTA NECK W WO CONTRAST EXAMINATION: CTA OF THE NECK 09/19/2024 1:06 am TECHNIQUE: CTA of the neck was performed with the administration of intravenous contrast. Multiplanar reformatted images are provided for review. MIP images are provided for review. Stenosis of the internal carotid arteries measured using NASCET criteria. Automated exposure control, iterative reconstruction, and/or weight based adjustment of the mA/kV was utilized to reduce the radiation dose to as low as reasonably achievable. COMPARISON: None. HISTORY: ORDERING SYSTEM PROVIDED HISTORY: Stroke R/O Large Vessel Occlusion TECHNOLOGIST PROVIDED HISTORY: Additional Contrast?->1 Reason for exam:->Stroke R/O Large Vessel Occlusion What reading provider will be dictating this exam?->CRC FINDINGS: AORTIC ARCH/ARCH VESSELS: No dissection or arterial injury. No significant stenosis of the brachiocephalic or subclavian arteries. CAROTID ARTERIES: No dissection, arterial injury, or hemodynamically significant stenosis by NASCET criteria. VERTEBRAL ARTERIES: No dissection, arterial injury, or significant stenosis. SOFT TISSUES: The lung apices are clear. No cervical or superior mediastinal lymphadenopathy. The larynx and pharynx are unremarkable. No acute abnormality of the salivary and thyroid glands. BONES: No acute osseous abnormality. IMPRESSION: Unremarkable CTA of the neck. Interpreted by: Debra Hunter MD Signed by: Debra Hunter MD 09/19/24 Final result Normal [facility] CTA Neck vessels WO and W co ntrast Mary 09-19-2024 Unremarkable CTA of the neck. [facility] EXAMINATION: CTA OF THE NECK 09/19/2024 1:06 am TECHNIQUE: CTA of the neck was performed with the administration of intravenous contrast. Multiplanar reformatted images are provided for review. MIP images are provided for review. Stenosis of the internal carotid arteries measured using NASCET criteria. Automated exposure control, iterative reconstruction, and/or weight based adjustment of the mA/kV was utilized to reduce the radiation dose to as low as reasonably achievable. COMPARISON: None. HISTORY: ORDERING SYSTEM PROVIDED HISTORY: Stroke R/O Large Vessel Occlusion TECHNOLOGIST PROVIDED HISTORY: Additional Contrast?->1 Reason for exam:->Stroke R/O Large Vessel Occlusion What reading provider will be dictating this exam?->CRC FINDINGS: AORTIC ARCH/ARCH VESSELS: No dissection or arterial injury. No significant stenosis of the brachiocephalic or subclavian arteries. CAROTID ARTERIES: No dissection, arterial injury, or hemodynamically significant stenosis by NASCET criteria. VERTEBRAL ARTERIES: No dissection, arterial injury, or significant stenosis. SOFT TISSUES: The lung apices are clear. No cervical or superior mediastinal lymphadenopathy. The larynx and pharynx are unremarkable. No acute abnormality of the salivary and thyroid glands. BONES: No acute osseous abnormality. [facility] Debra Hunter MD - 09/19/2024 EXAMINATION: CTA OF THE NECK 09/19/2024 1:06 am TECHNIQUE: CTA of the neck was performed with the administration of intravenous contrast. Multiplanar reformatted images are provided for review. MIP images are provided for review. Stenosis of the internal carotid arteries measured using NASCET criteria. Automated exposure control, iterative reconstruction, and/or weight based adjustment of the mA/kV was utilized to reduce the radiation dose to as low as reasonably achievable. COMPARISON: None. HISTORY: ORDERING SYSTEM PROVIDED HISTORY: Stroke R/O Large Vessel Occlusion TECHNOLOGIST PROVIDED HISTORY: Additional Contrast?->1 Reason for exam:->Stroke R/O Large Vessel Occlusion What reading provider will be dictating this exam?->CRC FINDINGS: AORTIC ARCH/ARCH VESSELS: No dissection or arterial injury. No significant stenosis of the brachiocephalic or subclavian arteries. CAROTID ARTERIES: No dissection, arterial injury, or hemodynamically significant stenosis by NASCET criteria. VERTEBRAL ARTERIES: No dissection, arterial injury, or significant stenosis. SOFT TISSUES: The lung apices are clear. No cervical or superior mediastinal lymphadenopathy. The larynx and pharynx are unremarkable. No acute abnormality of the salivary and thyroid glands. BONES: No acute osseous abnormality. IMPRESSION: Unremarkable CTA of the neck. [facility] Comprehensive Metabolic Pane rodrigo 09-19-2024 Anion gap [Moles/Vol] 12 mmol/L Normal 9-15 [facility] Comment on above: Performed By: #### C MP #### [facility] [address] [place] [address] Albumin [Mass/Vol] 4.5 g/dL Normal 3.5-4.6 [facility] Comment on above: Performed By: #### C MP #### [facility] [address] [address] ALP [Catalytic activity/Vol] 100 U/L Normal 40-130 [facility] Comment on above: Performed By: #### C MP #### [facility] [address] [address] ALT [Catalytic activity/Vol] 31 U/L Normal 0-33 [facility] Comment on above: Performed By: #### C MP #### [facility] [address] [address] AST [Catalytic activity/Vol] 25 U/L Normal 0-35 [facility] Comment on above: Performed By: #### C MP #### [facility] [address] [address] Bilirubin [Mass/Vol] mg/dL Normal 0.2-0.7 [facility] Comment on above: Performed By: #### C MP #### [facility] [address] [address] Calcium [Mass/Vol] 9.3 mg/dL Normal 8.5-9.9 [facility] Comment on above: Performed By: #### C MP #### [facility] [address] [place] [address] Chloride [Moles/Vol] 99 mmol/L Normal 95-107 [facility] Comment on above: Performed By: #### C MP #### [facility] [address] [place] [address] CO2 [Moles/Vol] 26 mmol/L Normal 20-31 [facility] Comment on above: Performed By: #### C MP #### [facility] [address] [place] [address] Creatinine [Mass/Vol] 0.88 mg/dL Normal 0.50-0.90 [facility] Comment on above: Performed By: #### C MP #### [facility] [address] [place] [address] GFR 81.5 Normal >60 [facility] Comment on above: Result Comment: Pedi atric calculator link https://www.kidney.org/professionals/kdoqi/gfr_calculatorped Effective Jul 16, 2022 These results are not intended for use in patients <18 years of age. eGFR results are calculated without a race factor using the 2020 CKD-EPI equation. Careful clinical correlation is recommended, particularly when comparing to results calculated using previous equations. The CKD-EPI equation is less accurate in patients with extremes of muscle mass, extra-renal metabolism of creatinine, excessive creatinine ingestion, or following therapy that affects renal tubular secretion. Performed By: #### C MP #### [facility] [address] [place] [address] Globulin (S) [Mass/Vol] 2.6 g/dL Normal 2.3-3.[address] [facility] Comment on above: Performed By: #### C MP #### [facility] [address] [place] [address] Glucose [Mass/Vol] 96 mg/dL Normal 70-99 [facility] Comment on above: Performed By: #### C MP #### [facility] [address] [place] [address] Potassium [Moles/Vol] 3.6 mmol/L Normal 3.4-4.9 [facility] Comment on above: Performed By: #### C MP #### [facility] [address] [place] [address] Protein [Mass/Vol] 7.1 g/dL Normal 6.3-8.0 [facility] Comment on above: Performed By: #### C MP #### [facility] [address] [place] [address] Sodium [Moles/Vol] 137 mmol/L Normal 135-144 [facility] Comment on above: Performed By: #### C MP #### [facility] [address] [place] [address] Urea nitrogen [Mass/Vol] 14 mg/dL Normal 6-20 [facility] Comment on above: Performed By: #### C MP #### [facility] [address] [place] [address] Comprehensive metabolic 2000 panelon 09-19-2024 Albumin [Mass/Vol] 4.5 g/dL 3.5 - 4.6 g/dL [facility] ALP [Catalytic activity/Vol] 100 U/L 40 - 130 U/L [facility] ALT [Catalytic activity/Vol] 31 U/L 0 - 33 U/L [facility] Anion gap [Moles/Vol] 12 mmol/L [facility] AST [Catalytic activity/Vol] 25 U/L 0 - 35 U/L [facility] Bilirubin [Mass/Vol] mg/dL 0.2 - 0 .7 mg/dL [facility] Calcium [Mass/Vol] 9.3 mg/dL 8.5 - 9.9 mg/dL [facility] Chloride [Moles/Vol] 99 mmol/L [facility] CO2 [Moles/Vol] 26 mmol/L [facility] Creatinine [Mass/Vol] 0.88 mg/dL 0.50 - 0.90 mg/dL [facility] GFR/1.73 sq M.predicted among non-blacks MDRD (S/P/Bld) [Vol rate/Area] 81.5 mL/min/{1.73_m2} 60 - PINF [facility] Comment on above: Pediatric calculator link https://www.kidney.org/professionals/kdoqi/gfr_calculatorped Effective Jul 16, 2022 These results are not intended for use in patients <18 years of age. eGFR results are calculated without a race factor using the 2020 CKD-EPI equation. Careful clinical correlation is recommended, particularly when comparing to results calculated using previous equations. The CKD-EPI equation is less accurate in patients with extremes of muscle mass, extra-renal metabolism of creatinine, excessive creatinine ingestion, or following therapy that affects renal tubular secretion. Globulin (S) [Mass/Vol] 2.6 g/dL 2.3 - 3.5 g/dL [facility] Glucose [Mass/Vol] 96 mg/dL 70 - 99 mg/dL [facility] Potassium [Moles/Vol] 3.6 mmol/L [facility] Protein [Mass/Vol] 7.1 g/dL 6.3 - 8.0 g/dL [facility] Sodium [Moles/Vol] 137 mmol/L [facility] Urea nitrogen [Mass/Vol] 14 mg/dL 6 - 20 mg/dL [facility] Ethanolon 09-19-2024 Ethanol percent Not indicated G/dL [facility]s [facility] Ethanolamine [Mass/Vol] <10 mg/dL B on [facility] High Sensitivity Troponin To n 09-19-2024 High Sensitivity Troponin T <6 Normal 0-19 [facility] Comment on above: Result Comment: High Sensitivity Troponin values cannot be compared with other Troponin methodologies. Performed By: #### T RP5 #### [facility] [address] [place] [address] Magnesiumon 09-19-2024 Magnesium [Mass/Vol] 2.4 mg/dL 1.7 - 2 .4 mg/dL [facility] Magnesium [Mass/Vol] 2.4 mg/dL Normal 1.7-2.4 [facility] Comment on above: Performed By: #### M G #### [facility] [address] [place] [address] Magnesium [Mass/Vol]on 09-19 [facility] No Panel Informationon 09-19 Radiology Study observation (narrative) [facility] POCT GlucoseOrdered By: You March on 09-19-2024 Interpretation and review of laboratory results Normal [facility] QC OK? okay to wait for cmp [facility] Partial Thromboplastin Timeo n 09-19-2024 aPTT Coag (Bld) [Time] 29.4 s Normal 24.4-36.8 [facility] [place] Comment on above: Result Comment: Effe ctive 08/17/2020: Heparin Therapeutic Range: 64.0 ? 98.0 seconds. Performed By: #### P TT #### [facility] [address] [place] [address] Portable XR Chest AP single viewon 09-19-2024 No acute process. [facility] EXAMINATION: ONE XRAY VIEW OF THE CHEST 09/19/2024 12:23 am COMPARISON: None. HISTORY: ORDERING SYSTEM PROVIDED HISTORY: Stroke TECHNOLOGIST PROVIDED HISTORY: Reason for exam:->Stroke What reading provider will be dictating this exam?->CRC FINDINGS: The lungs are without acute focal process. There is no effusion or pneumothorax. The cardiomediastinal silhouette is without acute process. The osseous structures are without acute process. [facility] Amy Hays MD - 09/19/2024 EXAMINATION: ONE XRAY VIEW OF THE CHEST 09/19/2024 12:23 am COMPARISON: None. HISTORY: ORDERING SYSTEM PROVIDED HISTORY: Stroke TECHNOLOGIST PROVIDED HISTORY: Reason for exam:->Stroke What reading provider will be dictating this exam?->CRC FINDINGS: The lungs are without acute focal process. There is no effusion or pneumothorax. The cardiomediastinal silhouette is without acute process. The osseous structures are without acute process. IMPRESSION: No acute process. [facility] Radiology Study observation (narrative) Quirino mcgee [facility] Portable XR Chest AP single viewOrdered By: Amy Hays on 09-19-2024 [facility] Work Phone: Prothrombin Timeon INR Coag (PPP) [Relative time] 1.0 {INR} Normal [facility] Comment on above: Performed By: #### P T #### [facility] [address] [place] [address] PT Coag (PPP) [Time] 13.0 s Normal 12.3-14.9 [facility] Comment on above: Performed By: #### P T #### [facility] [address] [place] [address] Protime-INRon 09-19-2024 INR Coag (PPP) [Relative time] 1.0 {INR} [facility] PT Coag (PPP) [Time] 13.0 s [facility] Troponinon 09-19-2024 Troponin, High Sensitivity ng/L 0 - 19 ng/L [facility] Comment on above: High Sensitivity Tro ponin values cannot be compared with other Troponin methodologies. [facility] XR CHEST PORTABLEon 09-19-20 XR CHEST PORTABLE EXAMINATION: ONE XRAY VIEW OF THE CHEST 09/19/2024 12:23 am COMPARISON: None. HISTORY: ORDERING SYSTEM PROVIDED HISTORY: Stroke TECHNOLOGIST PROVIDED HISTORY: Reason for exam:->Stroke What reading provider will be dictating this exam?->CRC FINDINGS: The lungs are without acute focal process. There is no effusion or pneumothorax. The cardiomediastinal silhouette is without acute process. The osseous structures are without acute process. IMPRESSION: No acute process. Interpreted by: Amy Hays MD Signed by: Amy Hays MD 09/19/24 Final result Normal [facility] Alanine aminotransferase [En zymatic activity/volume] in Serum or PlasmaOrdered By: Annalee Samson on 08-26-2024 ALT [Catalytic activity/Vol] Alanine aminotransferase [Enzymatic activity/volume] in Serum or Plasma [facility] Albumin [Mass/volume] in Ser um or Plasma by Bromocresol green (BCG) dye binding methoOrdered By: Annalee Samson on 08-26-2024 Albumin BCG dye [Mass/Vol] Albumin [Mass/volume] in Serum or Plasma by Bromocresol green (BCG) dye binding metho 3.5-5.7 [facility] Alkaline phosphatase [Enzyma tic activity/volume] in Serum or PlasmaOrdered By: Annalee Samson on 08-26-2024 ALP [Catalytic activity/Vol] Alkaline phosphatase [Enzymatic activity/volume] in Serum or Plasma 34-104 [facility] Aspartate aminotransferase [ Enzymatic activity/volume] in Serum or PlasmaOrdered By: Annalee Samson on 08-26-2024 AST [Catalytic activity/Vol] Aspartate aminotransferase [Enzymatic activity/volume] in Serum or Plasma 13-39 [facility] Basophils Auto (Bld) [#/Vol] Ordered By: Annalee Samson on 08-26-2024 Basophils (Bld) [#/Vol] Automated basoph il count 0.0-0.2 [facility] Basophils/100 WBC Auto (Bld) Ordered By: Annalee Samson on 08-26-2024 Basophils/100 WBC (Bld) Automated basophil % . [facility] Bilirubin.total [Mass/volume ] in Serum or PlasmaOrdered By: Annalee Samson on 08-26-2024 Bilirubin [Mass/Vol] Bilirubin.total [Mass/volume] in Serum or Plasma 0.3-1.0 [facility] Calcium [Mass/volume] in Ser um or PlasmaOrdered By: Annalee Samson on 08-26-2024 Calcium [Mass/Vol] Calcium [Mass/volume] in Serum or Plasma 8.6-10.3 [facility] Carbon dioxide, total [Moles /volume] in Serum or PlasmaOrdered By: Annalee Samson on 08-26-2024 CO2 [Moles/Vol] Carbon dioxide, total [Moles/volume] in Serum or Plasma 21.0-31.0 [facility] Chloride [Moles/volume] in S asad or PlasmaOrdered By: Annalee Samson on 08-26-2024 Chloride [Moles/Vol] Chloride [Moles/volume] in Serum or Plasma 98-107 [facility] Complete Blood Count Auto Di ffon 08-26-2024 Basophils (Bld) [#/Vol] 0.1 10*3/uL Normal 0.0-0.2 [facility] Comment on above: Result Comment: PERF ORMED BY: [place] [address] PATHOLOGIST EMPLOYEE COMMUNICATIONS COORDINATOR TAE CASEY M.D. Performed By: #### C BC, CMP #### [place] [address] [place] Basophils/100 WBC (Bld) 0.9 % Normal . T sallie [facility] Comment on above: Performed By: #### C BC, CMP #### [place] [address] [place] Eosinophils (Bld) [#/Vol] 0.4 10*3/uL Normal 0.0-0.45 [facility] Comment on above: Performed By: #### C BC, CMP #### [place] [address] [place] Eosinophils/100 WBC (Bld) 4.2 % Normal . [facility] Comment on above: Performed By: #### C BC, CMP #### [address] Erythrocyte distribution width (RBC) [Ratio] 13.4 % Normal 11.9-15.3 [facility] Comment on above: Performed By: #### C BC, CMP #### [address] Hematocrit (Bld) [Volume fraction] 39.9 % Normal 34.0-46.4 [facility] Comment on above: Performed By: #### C BC, CMP #### [address] Hemoglobin (Bld) [Mass/Vol] 14.0 g/dL Normal 11.8-15.4 [facility] Comment on above: Performed By: #### C BC, CMP #### [address] Lymphocytes (Bld) [#/Vol] 2.9 10*3/uL Normal 1.00-4.8 [facility] Comment on above: Performed By: #### C BC, CMP #### [address] Lymphocytes/100 WBC (Bld) 29.9 % Normal . [facility] Comment on above: Performed By: #### C BC, CMP #### [address] MCH (RBC) [Entitic mass] 31.8 pg Normal 24.7-34.3 [facility] Comment on above: Performed By: #### C BC, CMP #### [address] MCV (RBC) [Entitic vol] 90.7 fL Normal 80-100 [facility] Comment on above: Performed By: #### C BC, CMP #### [address] Mean Corpuscular HGB Conc 35.0 g/dL Normal 32.0-35.0 [facility] Comment on above: Performed By: #### C BC, CMP #### [address] Monocytes (Bld) [#/Vol] 0.4 10*3/uL Normal 0.0-0.8 [facility] Comment on above: Performed By: #### C BC, CMP #### [place] [address] [place] Monocytes/100 WBC (Bld) 3.9 % Normal . [facility] Comment on above: Performed By: #### C BC, CMP #### [address] Neutrophils (Bld) [#/Vol] 5.9 10*3/uL Normal 1.8-7.7 [facility] Comment on above: Performed By: #### C BC, CMP #### [address] Neutrophils/100 WBC (Bld) 61.1 % Normal . [facility] Comment on above: Performed By: #### C BC, CMP #### [facility] [address] NRBC% 0.1 /100{WBC} Normal 0-0.5 The [facility] Comment on above: Performed By: #### C BC, CMP #### [address] Platelet mean volume (Bld) [Entitic vol] 7.8 fL Normal 6.3-10.7 [facility] Comment on above: Performed By: #### C BC, CMP #### [address] Platelets (Bld) [#/Vol] 319 10*3/uL Normal 150-450 [facility] Comment on above: Performed By: #### C BC, CMP #### [address] RBC (Bld) [#/Vol] 4.39 10*6/uL Normal 3.60-5.00 [facility] Comment on above: Performed By: #### C BC, CMP #### [address] WBC (Bld) [#/Vol] 9.6 10*3/uL Normal 3.8-11.6 [facility] Comment on above: Performed By: #### C BC, CMP #### [address] Comprehensive Metabolic Pane rodrigo 08-26-2024 Albumin [Mass/Vol] 4.6 g/dL Normal 3.5-5.7 [facility] Comment on above: Performed By: #### C BC, CMP #### [address] Albumin/Globulin [Mass ratio] 1.8 {ratio} Normal [facility] Comment on above: Performed By: #### C BC, CMP #### [address] ALP [Catalytic activity/Vol] 96 U/L Normal 34-104 [facility] Comment on above: Result Comment: PERF ORMED BY: [place] [address] PATHOLOGIST EMPLOYEE COMMUNICATIONS COORDINATOR TAE CASEY M.D. Performed By: #### C BC, CMP #### [address] ALT [Catalytic activity/Vol] 23 U/L Normal 7-52 [facility] Comment on above: Performed By: #### C BC, CMP #### [address] Anion gap [Moles/Vol] 10.9 mmol/L Normal 6.0-15.[address] [facility] Comment on above: Performed By: #### C BC, CMP #### [address] AST [Catalytic activity/Vol] 21 U/L Normal 13-39 [facility] Comment on above: Performed By: #### C BC, CMP #### [address] Bilirubin [Mass/Vol] 0.4 mg/dL Normal 0.3-1.0 [facility] Comment on above: Performed By: #### C BC, CMP #### [address] Calcium [Mass/Vol] 9.6 mg/dL Normal 8.6-10.3 [facility] Comment on above: Performed By: #### C BC, CMP #### [place] [address] [place] Chloride [Moles/Vol] 102 mmol/L Normal 98-107 [facility] Comment on above: Performed By: #### C BC, CMP #### [place] [address] [place] CO2 [Moles/Vol] 30.0 mmol/L Normal 21.0-31.0 [facility] Comment on above: Performed By: #### C BC, CMP #### [address] Creatinine [Mass/Vol] 0.88 mg/dL Normal 0.60-1.20 [facility] Comment on above: Performed By: #### C BC, CMP #### [address] GFR/1.73 sq M.predicted MDRD (S/P/Bld) [Vol rate/Area] mL/min/{1.73_m2} Normal [facility] Comment on above: Performed By: #### C BC, CMP #### [address] Globulin (S) [Mass/Vol] 2.6 g/dL Normal T [facility] Comment on above: Performed By: #### C BC, CMP #### [address] Glucose [Mass/Vol] 79 mg/dL Normal 70-100 [facility] Comment on above: Result Comment: [facility] Glucose Reference Range is dependent on time and content of last meal. Glucose of more than 200 mg/dL in a nonstressed, ambulatory subject supports the diagnosis of Diabetes Mellitus. ADA recommended reference range Performed By: #### C BC, CMP #### [address] Potassium [Moles/Vol] 3.9 mmol/L Normal 3.5-5.1 [facility] Comment on above: Performed By: #### C BC, CMP #### [address] Protein [Mass/Vol] 7.2 g/dL Normal 6.4-8.9 [facility] Comment on above: Performed By: #### C BC, CMP #### [address] Sodium [Moles/Vol] 139 mmol/L Normal 136-145 [facility] Comment on above: Performed By: #### C TANISHA, CMP #### [facility] [address] Urea nitrogen [Mass/Vol] 16 mg/dL Normal 7-25 [facility] Comment on above: Performed By: #### C BC, CMP #### [facility] [address] Creatinine [Mass/volume] in Serum or PlasmaOrdered By: Annalee Samson on 08-26-2024 Creatinine [Mass/Vol] Creatinine [Mass/volume] in Serum or Plasma 0.60-1.20 [facility] Eosinophils Auto (Bld) [#/Vo l]Ordered By: Annalee Samson on 08-26-2024 Eosinophils (Bld) [#/Vol] Automated eosinophil count 0.0-0.45 [facility] Eosinophils/100 WBC Auto (Bl d)Ordered By: Annalee Samson on 08-26-2024 Eosinophils/100 WBC (Bld) Automated eosinophil % . [facility] Erythrocyte distribution wid th Auto (RBC) [Ratio]Ordered By: Annalee Samosn on 08-26-2024 Erythrocyte distribution width (RBC) [Ratio] Erythrocyte distribution width [Ratio] by Automated count 11.9-15.3 [facility] Globulin Calc (S) [Mass/Vol] Ordered By: Annalee Samson on 08-26-2024 Globulin (S) [Mass/Vol] Serum globulin measurement by calculation (mass/volume) [facility] Glucose [Mass/volume] in Ser um or PlasmaOrdered By: Annalee Samson on 08-26-2024 Glucose [Mass/Vol] Glucose [Mass/volume] in Serum or Plasma 70-100 [facility] Comment on above: ADA recommended refe rence rangeRandom Glucose Reference Range is dependent on time and content of last meal. Glucose of more than 200 mg/dL in a nonstressed, ambulatory subject supports the diagnosis of Diabetes Mellitus. Hematocrit Auto (Bld) [Volum e fraction]Ordered By: Annalee Samson on 08-26-2024 Hematocrit (Bld) [Volume fraction] Hematocrit [Volume Fraction] of Blood by Automated count 34.0-46.4 [facility] Hemoglobin [Mass/volume] in BloodOrdered By: Annalee Samson on 08-26-2024 Hemoglobin (Bld) [Mass/Vol] Hemoglobin [Mass/volume] in Blood 11.8-15.4 [facility] Leukocytes [#/volume] correc robel for nucleated erythrocytes in Blood by Automated counOrdered By: Annalee Samson on 08-26-2024 WBC corrected for nucl RBC Auto (Bld) [#/Vol] Leukocytes [#/volume] corrected for nucleated erythrocytes in Blood by Automated coun 3.8-11.6 [facility] Lymphocytes Auto (Bld) [#/Vo l]Ordered By: Annalee Samson on 08-26-2024 Lymphocytes (Bld) [#/Vol] Lymphocytes [#/volume] in Blood by Automated count 1.00-4.8 [facility] Lymphocytes/100 WBC Auto (Bl d)Ordered By: Annalee Samson on 08-26-2024 Lymphocytes/100 WBC (Bld) Lymphocytes/100 leukocytes in Blood by Automated count . [facility] MCH Auto (RBC) [Entitic mass ]Ordered By: Annalee Samson on 08-26-2024 MCH (RBC) [Entitic mass] MCH [Entitic mass] by Automated count 24.7-34.3 [facility] MCHC Auto (RBC) [Mass/Vol]Or dered By: Annalee Samson on 08-26-2024 MCHC (RBC) [Mass/Vol] MCHC [Mass/volume] by Automated count 32.0-35.0 [facility] MCV Auto (RBC) [Entitic vol] Ordered By: Annalee Samson on 08-26-2024 MCV (RBC) [Entitic vol] MCV [Entitic vol ume] by Automated count 80-100 [facility] Monocytes Auto (Bld) [#/Vol] Ordered By: Annalee Samson on 08-26-2024 Monocytes (Bld) [#/Vol] Automated blood monocyte count 0.0-0.8 [facility] Monocytes/100 WBC Auto (Bld) Ordered By: Annalee Samson on 08-26-2024 Monocytes/100 WBC (Bld) Automated monocyte % . [facility] Neutrophils Auto (Bld) [#/Vo l]Ordered By: Annalee Samson on 08-26-2024 Neutrophils (Bld) [#/Vol] Neutrophils [#/volume] in Blood by Automated count 1.8-7.7 [facility] Neutrophils/100 WBC Auto (Bl d)Ordered By: Annalee Samson on 08-26-2024 Neutrophils/100 WBC (Bld) Automated neutrophil % . [facility] No Panel InformationOrdered By: Annalee Samson on 08-26-2024 Estimated GFR (CKD-EPI) > 60.0 mL/Min [facility] Creatinine Clearance (Chem N/A [facility] Nucleated erythrocytes [Pres ence] in Blood by Automated countOrdered By: Annalee Samson on 08-26-2024 Nucleated RBC Auto Ql (Bld) Nucleated erythrocytes [Presence] in Blood by Automated count 0-0.5 [facility] Platelet mean volume Auto (B ld) [Entitic vol]Ordered By: Annalee Samson on 08-26-2024 Platelet mean volume (Bld) [Entitic vol] Platelet mean volume [Entitic volume] in Blood by Automated count 6.3-10.7 [facility] Platelets Auto (Bld) [#/Vol] Ordered By: Annalee Samson on 08-26-2024 Platelets (Bld) [#/Vol] Platelets [#/vol ume] in Blood by Automated count 150-450 [facility] Potassium [Moles/volume] in Serum or PlasmaOrdered By: Annalee Samson on 08-26-2024 Potassium [Moles/Vol] Potassium [Moles/volume] in Serum or Plasma 3.5-5.1 [facility] Protein [Mass/volume] in Ser um or PlasmaOrdered By: Annalee Samson on 08-26-2024 Protein [Mass/Vol] Protein [Mass/volume] in Serum or Plasma 6.4-8.9 [facility] RBC Auto (Bld) [#/Vol]Ordere d By: Annalee Samson on 08-26-2024 RBC (Bld) [#/Vol] Erythrocytes [#/volume] in Blood by Automated count 3.60-5.00 [facility] Serum or plasma albumin/glob ulin mass ratioOrdered By: Annalee Samson on 08-26-2024 Albumin/Globulin [Mass ratio] Serum or plasma albumin/globulin mass ratio [facility] Serum or plasma anion gap de terminationOrdered By: Annalee Samson on 08-26-2024 Anion gap [Moles/Vol] Serum or plasma anion gap determination 6.0-15.0 [facility] Sodium [Moles/volume] in Ser um or PlasmaOrdered By: Annalee Samson on 08-26-2024 Sodium [Moles/Vol] Sodium [Moles/volume] in Serum or Plasma 136-145 [facility] Urea nitrogen [Mass/volume] in Serum or PlasmaOrdered By: Annalee Samson on 08-26-2024 Urea nitrogen [Mass/Vol] Urea nitrogen [Mass/volume] in Serum or Plasma 7-25 [facility] WBC Auto (Bld) [#/Vol]Ordere d By: Annalee Samson on 08-26-2024 WBC (Bld) [#/Vol] Leukocytes [#/volume] in Blood by Automated count 3.8-11.6 [facility] X-ray reportOrdered By: Oswaldo Riddle on 08-26-2024 Study report [facility] [place] [address] XRay Report Signed Patient: Sydnie Watts MR#: [id number] : 1975 Acct:[id number] Age/Sex: 49 / F ADM Date: 4 Loc: XD Room: Type: [facility] Attending Dr: Annalee VEGA Copies to: GARY Kee~ Ordering Provider: GARY Kee Date of Service: 08/26/24 XR/XR lumbar spine min 4V*: LOW BACK PAIN, RADICULOPATHY, HIP PAIN XR lumbar spine min 4V* 08/26/2024 11:00 AM SIGNS AND SYMPTOMS: Right hip pain with low back pain radiating down right leg PROTOCOLS: Frontal, lateral, and oblique radiographs of the lumbar spine COMPARISON: None FINDINGS: The alignment, development and bony structures are normal. There is no fracture or destructive lesion. The disk spaces are well-preserved. Facet hypertrophy is present in the lumbar spine. The sacrum and sacroiliac joints are normal. Atherosclerotic changes are noted in the abdominal aorta. XR/XR lumbar spine min 4V* IMPRESSION: No fracture or subluxation. Facet hypertrophy is present in the lower lumbar spine. Impression dictated by: Oswaldo Riddle M.D.08/26/2024 4:52 PM Dictation Location: [place] [address] Transcribed By: ALLISON 08/26/241651 Dictated By: Oswaldo Riddle II, MD 08/26/241650 Signed By: 08/26/241651 [facility] Work Phone: Study report [facility] [place] [address] XRay Report Signed Patient: Sydnie Watts MR#: [id number] : 1975 Acct:[id number] Age/Sex: 49 / F ADM Date: 4 Loc: XD Room: Type: [facility] Attending Dr: Annalee VEGA Copies to: GARY Kee~ Ordering Provider: GARY Kee Date of Service: 08/26/24 XR/XR hip RT min 2V(w/wo pelvis)*: LOW BACK PAIN, RADICULOPATHY, HIP PAIN XR hip RT min 2V(w/wo pelvis)* 08/26/2024 11:00 AM SIGNS AND SYMPTOMS: Right hip pain and low back pain PROTOCOL: Frontal and frog-leg views of the right hip COMPARISON: 06/20/2021 FINDINGS: The right hip joint space is preserved. There is no fracture or dislocation. Visualized right hemipelvis is grossly intact. Vascular calcifications are present in the pelvis. XR/XR hip RT min 2V(w/wo pelvis)* IMPRESSION: No fracture or dislocation. No significant degenerative change. Impression dictated by: Oswaldo Riddle M.D.08/26/2024 4:51 PM Dictation Location: [facility]-24 Transcribed By: ALLISON 08/26/241650 Dictated By: Oswaldo Riddle II, MD 08/26/241646 Signed By: 08/26/241650 [facility] Work Phone: XR hip RT min 2V(w/wo pelvis )*on 08-26-2024 XR hip RT min 2V(w/wo pelvis)* [facility] [place] [address] [place] [address] XRay Report Signed Patient: Sydnie Watts MR#: [id number] : 1975 Acct:[id number] Age/Sex: 49 / F ADM Date: 08/26/24 Loc: XD Room: Type: [facility] Attending Dr: Annalee VEGA Copies to: GARY Kee Ordering Provider: GARY Kee Date of Service: 08/26/24 XR/XR hip RT min 2V(w/wo pelvis)*: LOW BACK PAIN, RADICULOPATHY, HIP PAIN XR hip RT min 2V(w/wo pelvis)* 08/26/2024 11:00 AM SIGNS AND SYMPTOMS: Right hip pain and low back pain PROTOCOL: Frontal and frog-leg views of the right hip COMPARISON: 06/20/2021 FINDINGS: The right hip joint space is preserved. There is no fracture or dislocation. Visualized right hemipelvis is grossly intact. Vascular calcifications are present in the pelvis. XR/XR hip RT min 2V(w/wo pelvis)* IMPRESSION: No fracture or dislocation. No significant degenerative change. Impression dictated by: Oswaldo Riddle M.D.08/26/2024 4:51 PM Dictation Location: [facility]-24 Transcribed By: ALLISON 08/26/241650 Dictated By: Oswaldo Riddle II, MD 08/26/241646 Signed By: 08/26/241650 Normal [facility] XR lumbar spine min 4V*on XR lumbar spine min 4V* [facility] [place] [address] [place] [address] XRay Report Signed Patient: Sydnie Watts MR#: [id number] : 1975 Acct:[id number] Age/Sex: 49 / F ADM Date: 08/26/24 Loc: XD Room: Type: [facility] Attending Dr: Annalee VEGA Copies to: GARY Kee Ordering Provider: GARY Kee Date of Service: 08/26/24 XR/XR lumbar spine min 4V*: LOW BACK PAIN, RADICULOPATHY, HIP PAIN XR lumbar spine min 4V* 08/26/2024 11:00 AM SIGNS AND SYMPTOMS: Right hip pain with low back pain radiating down right leg PROTOCOLS: Frontal, lateral, and oblique radiographs of the lumbar spine COMPARISON: None FINDINGS: The alignment, development and bony structures are normal. There is no fracture or destructive lesion. The disk spaces are well-preserved. Facet hypertrophy is present in the lumbar spine. The sacrum and sacroiliac joints are normal. Atherosclerotic changes are noted in the abdominal aorta. XR/XR lumbar spine min 4V* IMPRESSION: No fracture or subluxation. Facet hypertrophy is present in the lower lumbar spine. Impression dictated by: Oswaldo Riddle M.D.08/26/2024 4:52 PM Dictation Location: [place] [address] Transcribed By: [facility] 08/26/241651 Dictated By: Oswaldo Riddle II, MD 08/26/241650 Signed By: 08/26/241651 Normal [facility] QUANTIFERON TB GOLD PLUSon 0 12-14-2022 QuantiFERON Criteria Comment Normal [facility] Comment on above: Result Comment: Dioni [...] test. Performed By: #### Q NTTB #### [facility] [address] [place] [address] Dr. Kavya Torres QuantiFERON Incubation Incubation performed. Normal [facility] Comment on above: Performed By: #### Q NTTB #### [facility] [address] [place] [address] Dr. Kavya Torres QuantiFERON Mitogen Value >10.00 Normal [facility] Comment on above: Performed By: #### Q NTTB #### [facility] [address] [place] [address] Dr. Kavya Torres QuantiFERON Nil Value 0.02 IU/mL Normal [facility] Comment on above: Performed By: #### Q NTTB #### [facility] [address] [place] [address] Dr. Kavya Torres QuantiFERON TB1 Ag Value 0.05 IU/mL Normal [facility] Comment on above: Performed By: #### Q NTTB #### [facility] [address] [place] [address] Dr. Kavya Torres QuantiFERON TB2 Ag Value 0.07 IU/mL Normal [facility] Comment on above: Performed By: #### Q NTTB #### [facility] [address] [place] [address] Dr. Kavya Torres QuantiFERON-TB Gold Plus Negative Normal Negative [facility] Comment on above: Result Comment: No r esponse to M tuberculosis antigens detected. Infection with M tuberculosis is unlikely, but high risk individuals should be considered for additional testing (ATS/IDSA/CDC Clinical Practice Guidelines, 2017). The reference range is an Antigen minus Nil result of <0.35 IU/mL. Chemiluminescence immunoassay methodology Performed By: #### Q NTTB #### [facility] [address] [place] [address] Dr. Kavya Torres HEPATITIS B SURFACE ANTIBODY , QUANTon 12-13-2022 Hepatitis B Surf AB Quant >1000.0 Normal Immunity>9.9 [facility] Comment on above: Result Comment: Stat us of Immunity Anti-HBs Level Inconsistent with Immunity 0.0 - 9.9 Consistent with Immunity >9.9 Performed By: #### H EPBSRF #### [facility] [address] [place] [address] Dr. Kavya Torres MMR IMMUNITYon 12-13-2022 Mumps Abs, IgG 297.0 AU/mL Normal Immune >10.9 [facility] Comment on above: Result Comment: Nega tive <9.0 Equivocal 9.0 - 10.9 Positive >10.9 A positive result generally indicates past exposure to Mumps virus or previous vaccination. Performed By: #### M MRIMMU #### [facility] [address] [place] [address] Dr. Kavya Torres Rubella Antibodies, IgG 7.28 index Normal Immune >0.99 [facility] Comment on above: Result Comment: Non- immune <0.90 Equivocal 0.90 - 0.99 Immune >0.99 Performed By: #### M MRIMMU #### [facility] [address] [place] [address] Dr. Kavya Torres Rubeola Ab, IgG 66.8 AU/mL Normal Immune >16.4 [facility] Comment on above: Result Comment: Nega tive <13.5 Equivocal 13.5 - 16.4 Positive >16.4 Presence of antibodies to Rubeola is presumptive evidence of immunity except when acute infection is suspected. Performed By: #### M MRIMMU #### [facility] [address] [place] [address] Dr. Kavya Torres VARICELLA IGG ABon Varicella Zoster IgG 639 index Normal Immune >165 [facility] Comment on above: Result Comment: Nega tive <135 Equivocal 135 - 165 Positive >165 A positive result generally indicates exposure to the pathogen or administration of specific immunoglobulins, but it is not indication of active infection or stage of disease. Performed By: #### V ARCEL #### [facility] [address] [place] [address] ABD/PELVIS WO CONon [...] Damien JEROME Date: 2022-10-17 22:54 Normal [facility] XR HIP LT 2 3V W PELVISon [...] HONORIO JASSO Date: 2022-10-17 23:39 Normal [facility] CBC AUTO DIFFon 10-17-2022 BASO # 0.1 103/ul Normal 0.0-0.1 [facility] Comment on above: Performed By: #### C BC #### [facility] [address] [place] [address] Dr. Kavya Torres Basophils/100 WBC (Bld) 0.8 % Normal 0.2-2.0 [facility] Comment on above: Performed By: #### C BC #### [facility] [address] [place] [address] Dr. Kavya Torres EO # 0.3 103/ul Normal 0.0-0.7 [facility] Comment on above: Performed By: #### C BC #### [facility] [address] [place] [address] Dr. Kavya Torres Eosinophils/100 WBC (Bld) 4.0 % Normal 0.9-7.0 [facility] Comment on above: Performed By: #### C BC #### [facility] [address] [place] [address] Dr. Kavya Torres Erythrocyte distribution width (RBC) [Ratio] 13.0 % Normal 11.0-15.0 [facility] Comment on above: Performed By: #### C BC #### [facility] [address] [place] [address] Dr. Kavya Torres Hematocrit (Bld) [Volume fraction] 35.5 % Critically low 36.0-48.0 [facility] Comment on above: Performed By: #### C BC #### [facility] [address] [place] [address] Dr. Kavya Torres Hemoglobin (Bld) [Mass/Vol] 12.1 g/dL Normal 12.0-16.0 [facility] Comment on above: Performed By: #### C BC #### [facility] [address] [place] [address] Dr. Kavya Torres IG # 0.01 10e3/ul Normal 0.00-0.03 [facility] Comment on above: Performed By: #### C BC #### [facility] [address] [place] [address] Dr. Kavya Torres IG % 0.1 % Normal 0.0-0.5 [facility] Comment on above: Performed By: #### C BC #### [facility] [address] [place] [address] Dr. Kavya Torres LYMPH # 3.2 103/ul Normal 1.2-3.8 [facility] Comment on above: Performed By: #### C BC #### [facility] [address] [place] [address] Dr. Kavya Torres Lymphocytes/100 WBC (Bld) 44.2 % Normal 20.5-60.0 [facility] Comment on above: Performed By: #### C BC #### [facility] [address] [place] [address] Dr. Kavya Torres MANUAL DIFF REQ NO Normal [facility] Comment on above: Performed By: #### C BC #### [facility] [address] [place] [address] Dr. Kavya Torres MCH (RBC) [Entitic mass] 30.7 pg Normal 26.7-34.0 [facility] Comment on above: Performed By: #### C BC #### [facility] [address] [place] [address] Dr. Kavya Torres MCHC (RBC) [Mass/Vol] 34.1 g/dL Normal 29.9-35.2 [facility] [place] Comment on above: Performed By: #### C BC #### [facility] [address] [place] [address] Dr. Kavya Torres MCV (RBC) [Entitic vol] 90.1 fL Normal 81.0-99.0 [facility] Comment on above: Performed By: #### C BC #### [facility] [address] [place] [address] Dr. Kavya Torres MONO # 0.4 103/ul Normal 0.3-0.8 [facility] [place] Comment on above: Performed By: #### C BC #### [facility] [address] [place] [address] Dr. Kavya Torres Monocytes/100 WBC (Bld) 5.4 % Normal 1.7-12.0 [facility] Comment on above: Performed By: #### C BC #### [facility] [address] [place] [address] Dr. Kavya Torres NEUT # 3.3 103/ul Normal 1.4-6.5 [facility] [place] Comment on above: Performed By: #### C BC #### [facility] [address] [address] [address] Kavya Torres Neutrophils/100 WBC (Bld) 45.5 % Normal 43.0-75.0 [facility] [place] Comment on above: Performed By: #### C BC #### [facility] [address] [place] [address] Dr. Kavya Torres Platelet mean volume (Bld) [Entitic vol] 9.0 fL Critically low 9.5-13.5 [facility] [place] Comment on above: Performed By: #### C BC #### [facility] [address] [place] [address] Dr. Kavya Torres PLT 305 103/ul Normal 150-450 [facility] [place] Comment on above: Performed By: #### C BC #### [facility] [address] [place] [address] Dr. Kavya Torres RBC 3.94 106/ul Critically low 4.20-5.40 [facility] Comment on above: Performed By: #### C BC #### [facility] [address] [place] [address] Dr. Kavya Torres WBC 7.2 103/ul Normal 4.0-11.0 [facility] [place] Comment on above: Performed By: #### C BC #### [facility] [address] [place] [address] Dr. Kavya Torres ER URINE PROFILEon 3 Bilirubin Ql (U) Negative Normal NEGATIVE [facility] Comment on above: Performed By: #### U MICRO, ERUR #### [facility] [address] [place] [address] Dr. Kavya Torres Clarity (U) CLEAR Normal CLEAR [facility] Comment on above: Performed By: #### U MICRO, ERUR #### [facility] [address] [place] [address] Dr. Kavya Torres Color (U) LT. YELLOW Normal YELLOW [facility] Comment on above: Performed By: #### U MICRO, ERUR #### [facility] [address] [address] [address] Kavya LIM A micrscopic examination will be performed if indicated. Normal [facility] Comment on above: Performed By: #### U MICRO, ERUR #### [facility] [address] [place] [address] Dr. Kavya Torres Glucose Ql (U) Negative Normal NEGATIVE [facility] Comment on above: Performed By: #### U MICRO, ERUR #### [facility] [address] [address] [address] Kavya Torres Hemoglobin Ql (U) TRACE-LYSED Abnormal NEGATIVE [facility] Comment on above: Performed By: #### U MICRO, ERUR #### [facility] [address] [place] [address] Dr. Kavya Torres Ketones Ql (U) Negative Normal NEGATIVE [facility] Comment on above: Performed By: #### U MICRO, ERUR #### [facility] [address] [place] [address] Dr. Kavya Torres LEUKOCYTES Negative Normal NEGATIVE [facility] [place] Comment on above: Performed By: #### U MICRO, ERUR #### [facility] [address] [place] [address] Dr. Kavya Torres Nitrite Ql (U) Negative Normal NEGATIVE [facility] Comment on above: Performed By: #### U MICRO, ERUR #### [facility] [address] [place] [address] Dr. Kavya Torres pH (U) 6.0 [pH] Normal 5-9 [facility] [place] Comment on above: Performed By: #### U MICRO, ERUR #### [facility] [address] [place] [address] Dr. Kavya Torres SPEC GRAVITY 1.010 Normal 1.005-<=1.02 5 [facility] [place] Comment on above: Performed By: #### U MICRO, ERUR #### [facility] [address] [place] [address] Dr. Kavya Torres UA PROTEIN Negative Normal NEGATIVE/ TRACE [facility] [place] Comment on above: Performed By: #### U MICRO, ERUR #### [facility] [address] [place] [address] Dr. Kavya Torres UR MICRO IND INDICATED Normal [facility] [place] Comment on above: Performed By: #### U MICRO, ERUR #### [facility] [address] [place] [address] Dr. Kavya Torres Urobilinogen Qn (U) 0.2 {Tito'U}/dL Normal 0.2 - 1. 0 [facility] [place] Comment on above: Performed By: #### U MICRO, ERUR #### [facility] [address] [place] [address] Dr. Kavya Torres PROF 14(COMP METB)on 023 Albumin [Mass/Vol] 3.5 g/dL Normal 3.4-5.0 [facility] Comment on above: Performed By: #### C MP #### [facility] [address] [place] [address] Dr. Kavya Torres Albumin/Globulin [Mass ratio] 1.1 {ratio} Normal [facility] [place] Comment on above: Performed By: #### C MP #### [facility] [address] [place] [address] Dr. Kavya Torres ALP [Catalytic activity/Vol] 107 U/L Normal 46-116 [facility] [place] Comment on above: Performed By: #### C MP #### [facility] [address] [place] [address] Dr. Kavya Torres ALT [Catalytic activity/Vol] 42 U/L Normal 14-59 [facility] [place] Comment on above: Performed By: #### C MP #### [facility] [address] [place] [address] Dr. Kavya Torres Anion gap [Moles/Vol] 10.2 mmol/L Normal [facility] Comment on above: Performed By: #### C MP #### [facility] [address] [place] [address] Dr. Kavya Torres AST [Catalytic activity/Vol] 24 U/L Normal 15-37 [facility] [place] Comment on above: Performed By: #### C MP #### [facility] [address] [address] [address] Kavya Torres Bilirubin [Mass/Vol] 0.2 mg/dL Normal 0.2-1.0 [facility] [place] Comment on above: Performed By: #### C MP #### [facility] [address] [place] [address] Dr. Kavya Torres Calcium [Mass/Vol] 8.8 mg/dL Normal 8.5-10.1 [facility] Comment on above: Performed By: #### C MP #### [facility] [address] [place] [address] Dr. Kavya Torres Chloride [Moles/Vol] 101 mmol/L Normal 98-107 [facility] [place] Comment on above: Performed By: #### C MP #### [facility] [address] [place] [address] Dr. Kavya Torres CO2 [Moles/Vol] 29.2 mmol/L Normal 21.0-32.0 [facility] Comment on above: Performed By: #### C MP #### [facility] [address] [place] [address] Dr. Kavya Torres Creatinine [Mass/Vol] 0.85 mg/dL Normal 0.55-1.02 [facility] [place] Comment on above: Performed By: #### C MP #### [facility] [address] [place] [address] Dr. Kavya Torres EGFR-AF NEPALESE >60 Normal >=60 [facility] Comment on above: Performed By: #### C MP #### [facility] [address] [place] [address] Dr. Kavya Torres EGFR-NON AF NEPALESE >60 Normal >=60 [facility] [place] Comment on above: Performed By: #### C MP #### [facility] [address] [place] [address] Dr. Kavya Torres Globulin (S) [Mass/Vol] 3.3 g/dL Normal T [facility] Comment on above: Performed By: #### C MP #### [facility] [address] [place] [address] Dr. Kavya Torres Glucose [Mass/Vol] 94 mg/dL Normal 74-106 [facility] Comment on above: Performed By: #### C MP #### [facility] [address] [place] [address] Dr. Kavya Torres Potassium [Moles/Vol] 3.4 mmol/L Critically low 3.5-5.1 [facility] [place] Comment on above: Performed By: #### C MP #### [facility] [address] [place] [address] Dr. Kavya Torres Protein [Mass/Vol] 6.8 g/dL Normal 6.4-8.2 [facility] Comment on above: Performed By: #### C MP #### [facility] [address] [place] [address] Dr. Kavya Torres Sodium [Moles/Vol] 137 mmol/L Normal 136-145 [facility] Comment on above: Performed By: #### C MP #### [facility] [address] [place] [address] Dr. Kavya Torres Urea nitrogen [Mass/Vol] 15.0 mg/dL Normal 7.0-18.0 [facility] [place] Comment on above: Performed By: #### C MP #### [facility] [address] [place] [address] Dr. Kavya Torres Urea nitrogen/Creatinine [Mass ratio] 17.6 mg/mg Normal [facility] [place] Comment on above: Performed By: #### C MP #### [facility] [address] [place] [address] Dr. Kavya Torres URINE MICROSCOPIC ONLYon BACTERIA TRACE Abnormal NONE SEEN [facility] [place] Comment on above: Performed By: #### U MICRO, ERUR #### [facility] [address] [place] [address] Dr. Kavya Torres Bacteria identified Cx Nom (U) NOT INDICATED Normal [facility] [place] Comment on above: Performed By: #### U MICRO, ERUR #### [facility] [address] [place] [address] Dr. Kavya Torres CAST NONE SEEN Normal NONE SEEN [facility] [place] Comment on above: Performed By: #### U MICRO, ERUR #### [facility] [address] [address] [address] Kavya Torres Crystals LM Nom (Urine sed) NONE SEEN Normal NONE SEEN [facility] Comment on above: Performed By: #### U MICRO, ERUR #### [facility] [address] [address] [address] Kavya Torres Epithelial cells LM Ql (Urine sed) MODERATE Abnormal NONE SEEN /RARE [facility] Comment on above: Performed By: #### U MICRO, ERUR #### [facility] [address] [address] [address] Kavya Torres MUCOUS NONE SEEN Normal NONE SEEN [facility] Comment on above: Performed By: #### U MICRO, ERUR #### [facility] [address] [place] [address] Dr. Kavya Torrse RBC 0-2 Normal 0-2 [facility] Comment on above: Performed By: #### U MICRO, ERUR #### [facility] [address] [address] [address] Kavya Torres WBC 0-2 Abnormal NONE SEEN [facility] Comment on above: Performed By: #### U MICRO, ERUR #### [facility] [address] [address] [address] Kavya Torres Urine culture routineOrdered By: Darrel Barrow on 05-11-2022 Bacteria identified Cx Nom (U) No Growth 2 Days [facility] Automated erythrocytes count in urine sediment (number/area)Ordered By: Darrel Barrow on 05-09-2022 RBC Auto (Urine sed) [#/Area] 0-1 [HPF] 0-4 [facility] Automated leukocytes count i n urine sediment (number/area)Ordered By: Darrel Barrow on 05-09-2022 WBC Auto (Urine sed) [#/Area] None seen [HPF] 0-4 [facility] Bilirubin Auto test strip Ql (U)Ordered By: Darrel Barrow on 05-09-2022 Bilirubin Ql (U) Negative Negative [facility] Ketones Auto test strip (U)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 09-09-2023 End: 10-05-2024 Tobacco use and exposure Smokeless tobacco non-user [facility] Has the [employer], or [employer] threatened to shut off services in your home in past 12Mo No [facility] Are you now , , , , never or living with a partner? [facility] How often to you hav e a drink containing alcohol? 2-4 times a month [facility] How often do you hav e 6 or more drinks on 1 occasion? Less than monthly [facility] How hard is it for y ou to pay for the very basics like food, housing, medical care, and heating Not very hard [facility] Do you feel stress - tense, restless, nervous, or anxious, or unable to sleep at night because your mind is troubled all the time - these days [OSQ] To some extent [facility] Start: 09-18-2022 Education 15 [facility] Start: 10-05-2024 Alcohol Comment occiasonally [facility] Start: 11-05-2024 Tobacco smoking status Light tobacco smoker (finding) [facility] Functional Status Date Assessment Result Facility 11-05-2024 Functional Status N/A [facility] Clinical Notes 01-06-2007 to 11-11-2024 Telephone Encounter - Delilah Al CMA - 11/11/2024 1:53 PM ESTTelephone Encounter - Anju Romano - 11/11/2024 1:53 PM ESTTelephone Encounter - Jean Paul Arango DO - 11/11/2024 1:53 PM EST Note Date & Type Note Facility 11-11-2024 Miscellaneous Notes ----- Message from Dr. Jean Paul Arango DO sent at 11/11/2024 12:46 PM EST ----- Her echo with bubble study did not reveal any ASD or VSD. She does not need to see a plater production for that. If she is still having jaw or chest pain, especially with exertion then she needs a stress test Patient notified and understands , she is feeling better but comes and goes, she still has SOB when going up the stairs, also seen urology, is scheduled in december for procedure, was given a topical cream but is still having pain and burning after urinating Okay. Should probably set up a wellness anyways soon Wellness scheduled documented in this encounter [email or web address] 11-11-2024 Telephone encounter Note ----- Message from Dr. Jean Paul Arango DO sent at 11/11/2024 12:46 PM EST ----- Her echo with bubble study did not reveal any ASD or VSD. She does not need to see a plater production for that. If she is still having jaw or chest pain, especially with exertion then she needs a stress test [facility] 11-11-2024 Telephone encounter Note Patient notified and understands , she is feeling better but comes and goes, she still has SOB when going up the stairs, also seen urology, is scheduled in december for procedure, was given a topical cream but is still having pain and burning after urinating [facility] 11-11-2024 Telephone encounter Note Okay. Should probably set up a wellness anyways soon [facility] 11-11-2024 Telephone encounter Note Wellness scheduled [facility] 11-05-2024 Hospital Discharg e instructions Patient Education 11/05/2024 13:04:54 Dysuria Dysuria Dysuria is pain or discomfort during urination. The pain or discomfort may be felt in the part of the body that drains urine from the bladder (urethra) or in the surrounding tissue of the genitals. The pain may also be felt in the groin area, lower abdomen, or lower back. You may have to urinate frequently or have the sudden feeling that you have to urinate (urgency). Dysuria can affect anyone, but it is more common in females. Dysuria can be caused by many different things, including: Urinary tract infection. Kidney stones or bladder stones. Certain STIs (sexually transmitted infections), such as chlamydia. Dehydration. Inflammation of the tissues of the vagina. Use of certain medicines. Use of certain soaps or scented products that cause irritation. Follow these instructions at home: Medicines Take tsoi-zsj-noiesgx and prescription medicines only as told by your health care provider. If you were prescribed an antibiotic medicine, take it as told by your health care provider. Do not stop taking the antibiotic even if you start to feel better. Eating and drinking Drink enough fluid to keep your urine pale yellow. Avoid caffeinated beverages, tea, and alcohol. These beverages can irritate the bladder and make dysuria worse. In males, alcohol may irritate the prostate. General instructions Watch your condition for any changes. Urinate often. Avoid holding urine for long periods of time. If you are female, you should wipe from front to back after urinating or having a bowel movement. Use each piece of toilet paper only once. Empty your bladder after sex. Keep all follow-up visits. This is important. If you had any tests done to find the cause of dysuria, it is up to you to get your test results. Ask your health care provider, or the department that is doing the test, when your results will be ready. Contact a health care provider if: You have a fever. You develop pain in your back or sides. You have nausea or vomiting. You have blood in your urine. You are not urinating as often as you usually do. Get help right away if: Your pain is severe and not relieved with medicines. You cannot eat or drink without vomiting. You are confused. You have a rapid heartbeat while resting. You have shaking or chills. You feel extremely weak. Summary Dysuria is pain or discomfort while urinating. Many different conditions can lead to dysuria. If you have dysuria, you may have to urinate frequently or have the sudden feeling that you have to urinate (urgency). Watch your condition for any changes. Keep all follow-up visits. Make sure that you urinate often and drink enough fluid to keep your urine pale yellow. This information is not intended to replace advice given to you by your health care provider. Make sure you discuss any questions you have with your health care provider. Document Revised: 05/12/2021 Document Reviewed: 05/12/2021 [employer] Patient Education 2023 [email or web address] Follow Up Care 10/27/2024 10:10:55 With:[facility] Address: When: Unknown Comments:For procedure as scheduled. [facility] 11-05-2024 Note Urology Office/Clini c Note Chief Complaint referral microhematuria HPI Staff 49yr old female pt re-referred by Jean Paul Arango DO for micro hematuria & hx of urethral stricture. Has had to have urethral dilation in the past. PVR - 163mL Former [facility] pt. Seen in 2016 for dysuria, feeling of incomplete bladder emptying, urgency, and asymptomatic micro hematuria. S/P Cysto/UD done 08/15/17. Seen again 2021 Pt states she feels a air bubble in her urethral for about a 1 year as well as additional episodes of gross hematuria. Repeat cysto 05/09/22 neg. Cyto/FISH neg. HUMBERTO neg. Dysuria: burning after urination now, but was having episodes of constant pain for x1 week, using ice/cold cloths to relieve burning Incomplete bladder emptying: denies, but says if she sits for a little bit longer she is able to urinate a little more Hematuria: denies Frequency: at least 1x per hour Urgency: only if she holds urine too long Nocturia: 2x per night Stream: good stream Leaking: sometimes with activity Post void dripping: yes Wearing pads/ Depends: denies Urge incontinence: only if she waits too long, she usually waits until bladder is completely full to urinate Stress incontinence: yes - has leakage when she runs and dances as well Incontinence without Sensory Awareness: denies Abdominal pain: denies Flank pain: denies - had pain in her back for 2 days, but thinks it was just her back from not getting out of bed Sexual complaints: Review of Systems PHQ Score Initial Depression Screen Score: 0 SCORE no fever, chills, malaise, myalgia. no rash/lesions. no chest pain, palpitations, or SOB. no abdominal pain, nausea, vomiting. Physical Exam Vitals & Measurements T: 37 ???C(Oral) HR: 67(Peripheral) RR: 18 BP: 112/67 HT: 65 in HT: 165 cm WT: 70.2 kg WT: 154.764 lb BMI: 25.79 General: nontoxic, NAD Mouth: moist mucosa Lungs: normal respiratory effort Cardio: regular rate, good distal perfusion Abdomen: nondistended, no suprapubic distention or tenderness, no CVA tenderness Neurologic: Grossly normal Skin: No rashes or suspicious lesions Assessment/Plan 1. Dysuria (R30.0: Dysuria) Intermittent episodes over the past 6-12 mos. Doesn't typically test + for UTI. Current episode started a week ago. Was constant pain in urethra, now intermittent w voiding. UA is neg. Denies vaginal discharge or itching. No new sexual partners. Sp hysterectomy - we discussed her sx could be due to vaginal/urethral atrophy. Will start trial of topical estrogen cream. Risks/benefits/side effects discussed. Could also be recurrence of her stricture. Will schedule cysto possible UD. However, if pt notices significant improvement w the estrogen cream, she can call and cancel the cysto. Will schedule Cysto with possible UD. The procedure risks, benefits, details, and treatment alternatives have been discussed with the patient. These include bleeding, infection, recurrent scar in over 50%, need for repeat dilation or other procedures, no symptom relief with dilation, among others. Full informed consent has been obtained. Will order Local anesthesia. Abx sent. Ordered: E&M of Est. Patient Moderate 30-39 Min 36954 2. Microhematuria (R31.29: Other microscopic hematuria) Denies gross hematuria. Neg work up by [facility] in 2016 (had UD) and April 2022. Chronic. Will need repeat work-up 3-5 yrs from previous (which would be any time this summer or thereafter). Pt does continue to smoke which increases her risk for Ca. Cessation encouraged. Ordered: 59162 Measure Post Void residual urine and/or bladder capacity by US- non-imaging Body Mass Index (BMI) documented 3008F Current tobacco smoker 1034F Depression Screening Negative 3352F E&M of Est. Patient Moderate 30-39 Min 12669 Influenza immunization status assessed 1030F Medication list documented in medical record 1159F Most recent diastolic blood pressure <80 mm Hg 3078F Review of all meds by a prescribing practitioner or clinical pharmacist documented in EHR 1160F Systolic BP <130 mm Hg (Most Recent) 3074F Urnls Dip Stick Auto w/o Microscopy POC 68030 3. Urethral stricture (N35.919: Unspecified urethral stricture, male, unspecified site) sp UD by [facility] in 2017. Reports good stream, no hesitancy or intermittency or straining. Ordered: 07123 Measure Post Void residual urine and/or bladder capacity by US- non-imaging Body Mass Index (BMI) documented 3008F Current tobacco smoker 1034F Depression Screening Negative 3352F E&M of Est. Patient Moderate 30-39 Min 33200 Influenza immunization status assessed 1030F Medication list documented in medical record 1159F Most recent diastolic blood pressure <80 mm Hg 3078F Review of all meds by a prescribing practitioner or clinical pharmacist documented in EHR 1160F Systolic BP <130 mm Hg (Most Recent) 3074F Urnls Dip Stick Auto w/o Microscopy POC 08856 Orders: estradiol topical, See Instructions, 42.5 gm, Refill(s) 6, appl (more content not included)... [facility] Comment on above: Result Comment: Elec tronically Signed By: LASHELL ZEPEDA, SARAHI Restrepo\.sol\Date and Time Signed: 11/05/24 13:07 EST 11-05-2024 Note Patient Education Urology Dysuria Dysuria is pain or discomfort during urination. The pain or discomfort may be felt in the part of the body that drains urine from the bladder (urethra) or in the surrounding tissue of the genitals. The pain may also be felt in the groin area, lower abdomen, or lower back. You may have to urinate frequently or have the sudden feeling that you have to urinate (urgency). Dysuria can affect anyone, but it is more common in females. Dysuria can be caused by many different things, including: ??? Urinary tract infection. ??? Kidney stones or bladder stones. ??? Certain STIs (sexually transmitted infections), such as chlamydia. ??? Dehydration. ??? Inflammation of the tissues of the vagina. ??? Use of certain medicines. ??? Use of certain soaps or scented products that cause irritation. Follow these instructions at home: Medicines ??? Take lmng-jml-[id number] and prescription medicines only as told by your health care provider. ??? If you were prescribed an antibiotic medicine, take it as told by your health care provider. Do not stop taking the antibiotic even if you start to feel better. Eating and drinking ??? Drink enough fluid to keep your urine pale yellow. ??? Avoid caffeinated beverages, tea, and alcohol. These beverages can irritate the bladder and make dysuria worse. In males, alcohol may irritate the prostate. General instructions ??? Watch your condition for any changes. ??? Urinate often. Avoid holding urine for long periods of time. ??? If you are female, you should wipe from front to back after urinating or having a bowel movement. Use each piece of toilet paper only once. ??? Empty your bladder after sex. ??? Keep all follow-up visits. This is important. ??? If you had any tests done to find the cause of dysuria, it is up to you to get your test results. Ask your health care provider, or the department that is doing the test, when your results will be ready. Contact a health care provider if: ??? You have a fever. ??? You develop pain in your back or sides. ??? You have nausea or vomiting. ??? You have blood in your urine. ??? You are not urinating as often as you usually do. Get help right away if: ??? Your pain is severe and not relieved with medicines. ??? You cannot eat or drink without vomiting. ??? You are confused. ??? You have a rapid heartbeat while resting. ??? You have shaking or chills. ??? You feel extremely weak. Summary ??? Dysuria is pain or discomfort while urinating. Many different conditions can lead to dysuria. ??? If you have dysuria, you may have to urinate frequently or have the sudden feeling that you have to urinate (urgency). ??? Watch your condition for any changes. Keep all follow-up visits. ??? Make sure that you urinate often and drink enough fluid to keep your urine pale yellow. This information is not intended to replace advice given to you by your health care provider. Make sure you discuss any questions you have with your health care provider. Document Revised: 05/12/2021 Document Reviewed: 05/12/2021 [employer] Patient Education ? 2023 [email or web address] [facility] 10-22-2024 History of Presen t illness Narrative Images from the original note were not included. Subjective Patient ID: Sydnie Watts is a 49 y.o. female. Sydnie presents today for dysuria and back pain. She had a recent urinary tract infection and feels like it is not completely resolved. She denies vaginal symptoms. She also developed low back pain that started yesterday. She does have rheumatoid disease and takes NSAIDs on a daily basis. She does have history of urethral stricture and had to have it dilated years ago by Dr. Barrow who is now retired she believes. Urinary Tract Infection The following portions of the patient's history were reviewed and updated as appropriate: allergies, current medications, past family history, past medical history, past social history, past surgical history, problem list, and medication reconciliation was completed including current medication and post discharge medication. Review of Systems Objective Physical Exam Vitals reviewed. Constitutional: General: She is not in acute distress. Appearance: She is not ill-appearing. HENT: Head: Normocephalic. Musculoskeletal: Lumbar back: Bony tenderness present. Back: Comments: Negative Donny's sign bilaterally Neurological: General: No focal deficit present. Mental Status: She is alert. Gait: Gait is intact. Psychiatric: Attention and Perception: Attention normal. Mood and Affect: Mood and affect normal. Speech: Speech normal. Behavior: Behavior normal. Behavior is cooperative. Assessment/Plan Sydnie was seen today for urinary tract infection. Diagnoses and all orders for this visit: Dysuria - POCT Urinalysis Auto, W/O Microscopy - Ambulatory referral to Urology (Non[facility]); Future UA did not suggest an infection. She just had blood. We will refer to Urology. May have recurrence of urethral stricture. Other microscopic hematuria - Ambulatory referral to Urology (Non[facility]); Future She has microscopic hematuria. She does take NSAIDs daily but needs to because of chronic medical conditions. She should have a further evaluation with Urology. History of urethral stricture - Ambulatory referral to Urology (Non[facility]); Future As above. documented in this encounter [facility] 10-20-2024 Miscellaneous Notes Pt called stated she has a uti x3-4 days burning , she tried an antibiotic and not getting any better , want to know if you can send in macrobid or do you need her to come in for a nurse visit? Have her come in for a nurse visit for UA and sent off for culture since she has been on an antibiotic Called pt she said she will either be in later today if not tomorrow morning , advised her to call on the way over so we can out her on the schedule for a nurse visit Noted documented in this encounter [facility] 10-20-2024 Telephone encounter Note Pt called stated she has a uti x3-4 days burning , she tried an antibiotic and not getting any better , want to know if you can send in macrobid or do you need her to come in for a nurse visit? [facility] 10-20-2024 Telephone encounter Note Have her come in for a nurse visit for UA and sent off for culture since she has been on an antibiotic [facility] 10-20-2024 Telephone encounter Note Called pt she said she will either be in later today if not tomorrow morning , advised her to call on the way over so we can out her on the schedule for a nurse visit [facility] 10-20-2024 Telephone encounter Note Noted [facility] 10-05-2024 History of Presen t illness Narrative Subjective Patient ID: Sydnie Watts is a 49 y.o. female. Sydnie presents today for an ER follow-up. She went to the emergency room for right arm numbness and tingling and left-sided jaw and shoulder pain. She had a workup including an EKG and stroke workup which was all negative. Does have degenerative disc disease at C5-6 and it was felt that she has a pinched nerve into her right arm. She has an appointment with the [facility] neurosurgery department coming up. She is wondering if she could have a referral for Cardiology for her left Alfa shoulder pain. She does have a family history of congenital heart disorders. She did have an echocardiogram with a bubble study done 3 years ago at [facility]. Her production weigher ordered x-rays of her lumbar spine and bilateral hips and apparently there was an abnormality on those. It suggested there was atherosclerosis. I do not have the reports to review. The following portions of the patient's history were reviewed and updated as appropriate: allergies, current medications, past family history, past medical history, past social history, past surgical history, problem list, and medication reconciliation was completed including current medication and post discharge medication. Review of Systems Constitutional: Negative. HENT: Negative. Respiratory: Negative. Cardiovascular: Negative. Gastrointestinal: Negative. Musculoskeletal: Positive for arthralgias, back pain and neck pain. Neurological: Positive for numbness. Objective Physical Exam Constitutional: General: She is not in acute distress. Appearance: She is not ill-appearing. HENT: Head: Normocephalic. Mouth/Throat: Mouth: Mucous membranes are moist. Eyes: General: No scleral icterus. Extraocular Movements: Extraocular movements intact. Conjunctiva/sclera: Conjunctivae normal. Cardiovascular: Rate and Rhythm: Normal rate and regular rhythm. Pulses: Normal pulses. Heart sounds: Normal heart sounds. No murmur heard. Pulmonary: Effort: Pulmonary effort is normal. No respiratory distress. Breath sounds: Normal breath sounds. No wheezing, rhonchi or rales. Abdominal: General: Bowel sounds are normal. Palpations: Abdomen is soft. Musculoskeletal: Cervical back: Neck supple. Lymphadenopathy: Cervical: No cervical adenopathy. Neurological: General: No focal deficit present. Mental Status: She is alert and oriented to person, place, and time. Psychiatric: Attention and Perception: Attention normal. Mood and Affect: Mood and affect normal. Speech: Speech normal. Behavior: Behavior normal. Behavior is cooperative. Thought Content: Thought content normal. Cognition and Memory: Cognition normal. Judgment: Judgment normal. Assessment/Plan Sydnie was seen today for follow-up. Diagnoses and all orders for this visit: Jaw pain Etiology unclear. Musculoskeletal versus referred pain from cardiac source. Atypical chest pain We discussed checking her for stress test locally but she would like to go to the [facility]. She will check a new plater production at the clinic and then let me know who she would like to go see. In the meantime we will try to track down her echocardiogram with bubble study. Degenerative disc disease, cervical Follow up with neurosurgeon documented in this encounter [email or web address] 04-12-2022 Evaluation note Encounter Date Diagnosis Assessment [...] Pt understood and agreed to treatment plan. [employer] Other [id number] History general Narrative - Reported* Type Description Date Medical History Tobacco dependence Medical History Chronic pain syndrome Medical History Rheumatoid arthtitis Medical History Heartburn Medical History Dysphagia Medical History 01/06/07 Colonoscopy-Crohn's Medical History 07/08/03 Colonoscopy-Crohn's, tim yp-hyperplastic Medical History 03/05/00 EGD/Colonoscopy-normal E GD, Crohn's Medical History 01/28/2014 EGD with b iopsy, Colonoscopy and polypectomy- esophageal spasm dialated, active Crohn's, flat polyp snared and removed, rectum hemrrhoids Medical History Crohns disease Medical History anxiety Medical History Encounter for smoking cessation counseling Medical History 05/08/17 Crohn disease terminal i leum Surgical History hysterectomy Hospitalization History see surgical hx [employer] Other Evaluation + Plan note No data available for this section [facility] evaluation noteNo assessment information available [facility] Work Phone: Evaluation note* Diagnosis Nonintractable headache, unspecified chronicity pattern, unspecified headache type- Primary Spasm of muscle documented in this encounter [facility]* Diagnosis Jaw pain- Primary Atypical chest pain Other chest pain Degenerative disc disease, cervical [facility] Diagnosis Dysuria- Primary Other microscopic hematuria History of urethral stricture Personal history of other disorder of urinary system [facility] Diagnosis Palpitations- Primary [facility]* Diagnosis Gastroesophageal reflux disease, unspecified whether esophagitis present [facility]* Attachments The following attachments cannot be sent through Care Everywhere. * Headaches: Avoiding Triggers: Video (Algerian) * TIA (Transient Ischemic Attack) (Algerian) * Cervical Spasm: Exercises (Algerian) [facility] SystemInstructionsNot on file documented in this [facility]ProSt[facility] SystemInstructionsNot on file documented in this [facility]Pro[facility] SystemInstructionsNot on file documented in this [facility]Pro[facility] SystemProgress note No data available for this section [facility] Summary Purpose Family History Relationship Condition Age at Onset Recorded Date/T ashly Not Specified Malignant neoplasm of thyroid gland Unkn own father Diabetes mellitus Unknown Relationship Condition Age at Onset Recorded Date/T ashly mother Malignant neoplasm of thyroid gland Unkno wn father Diabetes mellitus Unknown mother Malignant neoplasm Unknown Family history of ma lignant neoplasm of thyroid Unknown Advance Directives Advance Directive Response Recorded Date/ Time Advance Directives No June 12:08pm Advance Directive Response Recorded Date/ Time Advance Directives No June 11:08am Chief Complaint and Reason for Visit Chief Complaint Hematuria r31.0 Chief Complaint Admit Date m07.69 m15.0 z79.899 back and hip pain N ovember 2023 10:48am Additional Source Comments INFORMATION SOURCE (unrecogn ized section and content) DATE CREATED AUTHOR 11/09/2021 [facility] DATE CREATED AUTHOR AUTHOR'S ORGANIZ ATION 03/08/2022 [facility] DATE CREATED AUTHOR AUTHOR'S ORGANIZ ATION 12/18/2022 [facility] DATE CREATED AUTHOR AUTHOR'S ORGANIZ ATION 09/15/2023 [facility] DATE CREATED AUTHOR AUTHOR'S ORGANIZ ATION 09/07/2024 [facility] DATE CREATED AUTHOR AUTHOR'S ORGANIZ ATION 09/22/2024 [facility] DATE CREATED AUTHOR AUTHOR'S ORGANIZ ATION 10/27/2024 [facility] DATE CREATED AUTHOR AUTHOR'S ORGANIZ ATION 11/06/2024 [facility] REASON FOR VISIT (unrecogniz ed section and content) Reason Comments Numbness Jaw Pain Reason Comments [facility]-up [facility] Dec -numbness and tingling. Jaw pain. Reason Comments Urinary Tract Infection Reason Comments Med Refill Reason Onset Date Comments Med Refill 06/01/2024 Care Teams (unrecognized sec tion and content) Team Status: Inactive Member Role Status Dates Jean Paul Arango DO Primary Care Provider Active Darrel Barrow MD Attending Provider Active Team Status: Active Member Role Status Dates Jean Paul Arango DO Primary Care Provider Active Team Status: Inactive Member Role Status Dates Jean Paul Arango DO Primary Care Provider Active Start: August 26, 2024 End: August 26, 2024 GARY Kee Attending Provider Active Start: August 26, 2024 End: August 26, 2024 Training And Development Assistant Relationship Specialty Start Date End Date Jean Paul Arango DO [address] [address] PCP - General Family Medicine 09/19/24 Training And Development Assistant Relationship Specialty Start Date End Date Jean Paul Arango DO [address], [facility] [place] [address] PCP - General Family Medicine 06/15/22 Training And Development Assistant Relationship Specialty Start Date End Date Jean Paul Arango DO [address], [place] [address] PCP - General Family Medicine 06/15/22 Training And Development Assistant Relationship Specialty Start Date End Date Jean Paul Arango DO [address], [place] [address] PCP - General Family Medicine 06/15/22 Training And Development Assistant Relationship Specialty Start Date End Date Jean Paul Arango DO [address], [place] [address] PCP - General Family Medicine 06/15/22 Training And Development Assistant Relationship Specialty Start Date End Date Jean Paul Arango DO [address], [place] [address] PCP - General Family Medicine 06/15/22 Training And Development Assistant Relationship Specialty Start Date End Date Jean Paul Arango DO [address], [place] [address] PCP - General Family Medicine 06/15/22 Goals (unrecognized section and content) Goals may be documented in a n alternate section Scheduled Active and Recently Administ ered Medications (unrecognized section and content) Medication Order 09/17/2024 09/18/2024 09/19/2024 acetaminophen (TYLENOL) tablet 1,000 mg (COMPLETED) 1,000 mg, Oral, ONCE, 1 dose, On 09/19/24 at 0440, Maximum dose of acetaminophen is 4000 mg from all sources in 24 hours. 0451 (Given - Provid er: Cookie Rubalcava RN) dexAMETHasone (DECADRON) tablet 10 mg (COMPLETED) 10 mg, Oral, ONCE, 1 dose, On 09/19/24 at 0542 0545 (Given - Provid er: Cookie Rubalcava, RN) morphine sulfate (PF) injection 4 mg (COMPLETED) 4 mg, IntraVENous, ONCE, 1 dose, On 09/19/24 at 0542 0546 (Given - Provid er: Cookie Rubalcava RN) PRN Medication Order 09/17/2024 09/18/2024 09/19/2024 iopamidol (ISOVUE-370) 76 % injection 75 mL (COMPLETED) 75 mL, IntraVENous, IMG ONCE PRN, 1 dose, Starting on 09/19/24 at 0048, Until 09/19/24 at 0212, Other 0212 (Given - Provid er: Angeles Emery) FOR RECORDS PERTAINING TO PATIENTS WHO ARE [...] BE BASED ON THE PRIMARY CLINICAL RECORDS. [employer] provides no warranty or guarantee of the accuracy or completeness of information in this document.
[2024-12-05 18:01] VITALS: O2SAT 98
[2024-12-05 18:11] LABS: Internal Control Within Normal Limits; Strep A Antigen Screen Negative
--- NOTE | 2024-12-05 18:12 | ED.GENADUL1 ---
HPI HPI - General Adult General Chief complaint: Upper Respiratory Infection Stated complaint: SORE THROAT, COLD SWEATS, GASTRO ISSUES Time Seen by Provider: 12/05/24 17:45 Source: patient Mode of arrival: walk-in Limitations: no limitations History of Present Illness HPI narrative: 49-year-old female presents here with chief complaint of cough congestion and sore throat. States she woke up with sore throat earlier this morning. She has had fevers and chills. 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 Patient is currently afebrile. Not appear toxic. Posterior pharynx is red. No sign of acute distress. Related Data Allergies Allergy/AdvReac Type Severity Reaction Status Date / Time infliximab (From Remicade) Allergy Severe Anaphylaxis Verified 12/05/24 17:48 Opioid HPI Opioid Management Most Recent Opioid Data: Last Pain Scale 6 12/05/24 18:00 12/05/24 Review of Systems ROS Narrative All Systems are negative except as noted/marked.All systems reviewed and otherwise negative PFSH PFSH Social History Little interest or pleasure in doing things: not at all Feeling down, depressed, or hopeless: not at all Exam Narrative Exam Narrative: Nurses note and vital signs reviewed and patient is not hypoxic. General: The patient appears well and in no apparent distress. Patient is resting comfortably on cart. Skin: Warm, dry, no pallor noted. There is no rash noted. Head: Normocephalic, atraumatic Eye: Normal conjunctiva, no drainage, EOMI. PERRL Ears, Nose, Mouth, and Throat: posterior oral Pharynx red, no exudate, uvula midline, no peritonsillar abscess oral mucosa is moist. Nares patent. Mouth without vesicles. Ear canals patent. Tm's without Erythema Cardiovascular: Regular Rate and Rhythm Respiratory: Patient is in no distress, no accessory muscle use, lungs are clear to auscultation, no wheezing, rales or rhonchi GI: Normal bowel sounds, no tenderness to palpation, no masses appreciated. No rebound, guarding, or rigidity noted. Musculoskeletal: The patient has no evidence of calf tenderness, no pitting edema, symmetrical pulses noted bilaterally Neurological: A&O x4, normal speech Psychiatric: Cooperative Constitutional Vital Signs, click to edit/add: Last Vital Signs Temp 98 F 12/05/24 17:48 Pulse 80 02/22/25 17:48 Resp 20 12/05/24 17:48 BP 140/88 12/05/24 17:48 Pulse Ox 98 12/05/24 18:01 O2 Del Method Room Air 12/05/24 18:01 Course Vital Signs Vital signs: Vital Signs Temperature 98 F 12/05/24 17:48 Pulse Rate 80 12/05/24 17:48 Respiratory Rate 20 12/05/24 17:48 Blood Pressure 140/88 12/05/24 17:48 Pulse Oximetry 100 12/05/24 17:48 Oxygen Delivery Method Room Air 12/05/24 17:48 Temperature 98 F 12/05/24 17:48 Pulse Rate 80 12/05/24 17:48 Respiratory Rate 20 12/05/24 17:48 Blood Pressure 140/88 12/05/24 17:48 Pulse Oximetry 98 12/05/24 18:01 Oxygen Delivery Method Room Air 12/05/24 18:01 Medical Decision Making MDM Narrative Medical decision making narrative: 49-year-old female presents here with chief complaint of cough congestion and sore throat. States she woke up with sore throat earlier this morning. She has had fevers and chills. 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 Patient is currently afebrile. Not appear toxic. Posterior pharynx is red. No sign of acute distress. 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 She states she woke up this morning with chills and sore throat. Both strep and influenza A are negative. Patient did request a work note for today and tomorrow. Patient be discharged home with a diagnosis URI. Medicated here in the emergency room with Tylenol and decadron. Primary care physician if symptoms change or worsen. Differential Diagnosis Differential Diagnosis: Influenza B, bronchitis, strep, influenza a Medical Records Medical records reviewed: Yes I reviewed the patient's medical records Lab Data Lab results reviewed: Yes I reviewed the patient's lab results Labs: Lab Results 12/05/24 Range/Units 17:55 Influenza Type A Ag Negative Influenza Type B Ag Negative Streptococcus Screen Negative Discharge Plan Discharge Chief Complaint: Upper Respiratory Infection Clinical Impression: Upper respiratory infection Patient Disposition: Home, Self-Care Time of Disposition Decision: 18:21 Condition: Good Print Language: Swazi Instructions: Upper Respiratory Infection (ED) Referrals: JORDAN STAPLES [Primary Care Provider] - 1 week Discharge Date/Time: 12/05/24 18:39
[2024-12-05 18:14] LABS: Influenza Virus A Antigen Negative; Influenza Virus B Antigen Negative; Internal Control Within Normal Limits
[2024-12-05] MEDS: DEXAMETHASONE SOD PHOS 10 MG/ML VIAL PO (18:31)
== END 2024-12-05 18:39 | disposition home or self-care (01) ==
PROVIDERS: Physician Assistant; Emergency Provider Emergency Medicine; PCP Family Medicine
DX: J06.9 Acute upper respiratory infection, unspecified (principal); J02.9 Acute pharyngitis, unspecified; R05.9 Cough, unspecified
CPT/HCPCS: 87070; 87804; 87880; 99284; J1100

== ENCOUNTER 2025-08-23 12:41 | Emergency (ER) | payer BC, SELFPAY ==
--- OUTSIDE RECORDS SUMMARY | 2021-02-27 05:30 | XMS_ITS | Continuity of Care Document ---
Author Organization [facility] Address [address] [place] [address] Phone Care Team Providers Care Speech Assistant Name Role Phone Souleymane Smalls Unavailable Unavailable Procedures Procedure Date CHIROPRACTIC MANIPULATION CHIROPRACTIC MANIPULATION CHIROPRACTIC MANIPULATION CHIROPRACTIC MANIPULATION CHIROPRACTIC MANIPULATION Covid Testing [facility] TB INTRADERMAL TEST TB INTRADERMAL TEST TB INTRADERMAL TEST TB INTRADERMAL TEST Advance Directives Directive Yes / No Effective Date File Name No Information Encounters Encounter Description Practice Location Reason(s) For Visit Diagnoses Date Provider Providers Copied on Encounter [facility], [address] [place] [address], [id number] , tel: [phone] [facility] cervical spine (chief complaint) cervical spine (chief complaint) Segmental and somatic dysfunction of cervical regionHeadache, unspecifiedSegmental and somatic dysfunction of lumbar regionLow back pain Slim Comer. [address] [place] [address], [id number] , [place]. tel:[phone] [facility], [address] [place] [address], [id number] , tel:[phone] [facility] lumbar spine (chief complaint) lumbar spine (chief complaint) Segmental and somatic dysfunction of lumbar regionLow back painSegmental and somatic dysfunction of cervical regionCervicalgia 1 Slim Comer. [address], [place], [id number] , [place]. tel: [phone] [facility], [address], [place], [id number] , [place] tel: [phone] [facility] thoracic spine (chief complaint) thoracic spine (chief complaint) Segmental and somatic dysfunction of lumbar regionLow back painSegmental and somatic dysfunction of thoracic regionPain in thoracic spine 0-202 1 Slim Comer. [address], [place], [id number] , [place]. tel: [phone] [facility], [address] [place] [address], [id number] , [place] tel: [phone] [facility] lumbar spine (chief complaint) lumbar spine (chief complaint) Segmental and somatic dysfunction of lumbar regionLow back painSegmental and somatic dysfunction of cervical regionCervicalgia 1 Slim Comer. [address] [place] [address], [id number] , [place]. tel: [phone] [facility], [address] [place] [address], [id number] , [place] tel: [phone] [facility] lumbar spine (chief complaint) lumbar spine (chief complaint) Segmental and somatic dysfunction of lumbar regionLow back painSegmental and somatic dysfunction of cervical regionCervicalgia 1 Slim Comer. [address] [place] [address], [id number] , [place]. tel: [phone] [facility], [address] [place] [address], [id number] , [place] tel: [phone] COVID [facility] Encounter for screening for other viral diseases 0 Delfina Vivar. [address], [place], [id number] , [place]. tel: [phone] [facility], [address] [place] [address], [id number] , [place] tel: [phone] [facility] Screening examination for pulmonary tuberculosis 2 Delfina Vivar. [address], [place], [id number] , [place]. tel: [phone] [facility], [address], [place], [id number] , [place] tel: [phone] [facility] No Information 200 9 Delfina Vivar. [address], [place], [id number] , [place]. tel: [phone] [facility], [address] [place] [address], [id number] , [place] tel: [phone] [facility] No Information 9 Delfina Vivar. [address], [place], [id number] , [place]. tel: [phone] Family History Family Member Type Diagnosis Age At Onset No Information Payers Payer name Insurance type Covered alliance party ID Authoriza tion(s) No Information Social History Type Description Quantity Date Captured Comments Alcohol Use Details Unknown Caffeine Use Details Unknown Tobacco Use Status No Information Smoking Status No Information Sex Female Sexual Orientation Straight or heterosexual Gender Identity Female Chief Complaint And Reason For Visit From encounter dated '02/27/2021 10:30'. cervical spine (chief complaint) cervical spine (chief complaint). Description: Pt reports headache since yesterday Reason For Referral Reason For Referral No Information History Of Present Illness Encounter Date Complaint History Of Prese nt Illness cervical spine cervical spine Pt reports heada lilia since yesterday lumbar spine lumbar spine Pt reports sligh t improvement since last visit. thoracic spine thoracic spine Pt reports pain in mid back on right after working on house over the weekend. lumbar spine lumbar spine Pt reports doing well after first adjustment with no adverse effects lumbar spine lumbar spine C/O flare up of low back pain extending into hips along with chronic neck soreness and headaches. Pt also dx with RASx are the result of regular ADL'S. No specific injury or trauma is noted. Pain is primarily at L3-L5 PVM on the Rt. & Lt. and extends to the SI joint, Rt. & Lt. Pain is local, dull, and without radiation to the lower extremities. No sensory or motor changes noted. Symptoms present with a pain scale of 7 (VAS = 1-10). Pain interferes with regular ADL's. Increase in pain with movement/ROM and ADL'S including walking Some decrease in symptoms with rest. No change in the pain pattern from the onset of symptoms. Pain pattern is as prior times. Functional Status Date Functional Assessmen t No Information Instructions Date Instruction Additional Infor mation No Information Assessments Type Assessment Date assessment Segmental and somatic dysfunctio n of cervical region assessment Headache, unspecified assessment Segmental and somatic dysfunctio n of lumbar region assessment Low back pain impression Patient Care Teams Name Effective Dates (start - stop) Status Members No Information
[2025-08-23 12:57] VITALS: BP 158/83; PULSE 78; TEMP 37; O2SAT 99; BMI 20.6
--- NOTE | 2025-08-23 13:12 | XR_ITS ---
[place] [id number] Patient Name: NADEEM CARVAJAL MRN: [id number] date: 1975 Sex: F Assigned Patient Location: ED.MAIN Current Patient Location: ED.MAIN Accession/Order Number: [id number] Exam Date: 08/23/2025 13:30 Report Date: 08/23/2025 13:56 At the request of: YAZAN BLAND Procedure: XR chest 2V XR chest 2V 08/23/2025 1:36 PM SIGNS AND SYMPTOMS: ^cough PROTOCOL: Frontal and lateral radiograph of the chest COMPARISON: 12/06/2021 FINDINGS: The trachea is midline. The heart and mediastinal structures are within normal limits. The lung parenchyma is clear. The bony thorax is intact. XR/XR chest 2V IMPRESSION: No acute cardiopulmonary pathology. Impression dictated by: Oswaldo Riddle M.D. 08/23/2025 1:56 PM Dictation Location: [place] [address] Electronically authenticated by: [id number] Y Date: 08/23/2025 13:56
--- NOTE | 2025-08-23 13:13 | ED.URI1 ---
HPI - URI/Sore Throat General Chief Complaint: Upper Respiratory Infection Stated Complaint: FEVER, CHEST HEAVINESS, COUGH Time Seen by Provider: 08/23/25 12:43 Source: patient Limitations: no limitations History of Present Illness HPI Narrative: 50 year old female presents to the ED for sore throat, cough, sinus and chest congestion, chills, fatigue, ROSADO. Onset was 08/19/25. Denies emesis, diarrhea. She has chest discomfort with cough. She started a medrol dosepak on 08/19/25. She is also using an inhaler. Related Data Previous Rx's ?Medication ?Instructions ?Recorded benzonatate 100 mg capsule 100 mg PO TID PRN cough #14 caps 08/23/25 Allergies Allergy/AdvReac Type Severity Reaction Status Date / Time [facility] ([facility] Allergy Severe Anaphylaxis Verified 08/23/25 12:57 Review of Systems ROS Constitutional Reports: fever, chills and fatigue Ears, nose, mouth, and throat Reports: throat pain; Denies: neck pain Respiratory Reports: cough; Denies: shortness of breath Gastrointestinal Denies: abdominal pain, nausea, vomiting or diarrhea Neurological Reports: headache; Denies: numbness in extremities or dizziness PFSH PFSH Social History Little interest or pleasure in doing things: not at all Feeling down, depressed, or hopeless: not at all Exam Constitutional Vital Signs, click to edit/add: Last Vital Signs Temp 98.6 F 08/23/25 12:57 Pulse 78 08/23/25 12:57 Resp 18 08/23/25 12:57 BP 158/83 H 08/23/25 12:57 Pulse Ox 99 08/23/25 12:57 O2 Del Method Room Air 08/23/25 12:57 Common normals: no apparent distress and oriented x3 General appearance: cooperative HENWA Common normals: external ears normal, moist oral mucous membranes and oropharynx normal Eye Common normals: conjunctivae normal and no scleral icterus Neck & C-Spine Common normals: supple Chest Chest: symmetrical chest wall rise Respiratory Common normals: normal respiratory effort and clear to auscultation bilaterally Effort & inspection: able to speak in complete sentences and symmetric chest movement Cardio Common normals: regular rate and regular rhythm Neuro Common normals: oriented x3, moves all extremities and no focal motor deficits Sensorium/orientation: awake and alert Speech: speech normal Course Vital Signs Vital signs: Vital Signs Temperature 98.6 F 08/23/25 12:57 Pulse Rate 78 08/23/25 12:57 Respiratory Rate 18 08/23/25 12:57 Blood Pressure 158/83 H 08/23/25 12:57 Pulse Oximetry 99 08/23/25 12:57 Oxygen Delivery Method Room Air 08/23/25 12:57 Temperature 98.6 F 08/23/25 12:57 Pulse Rate 78 08/23/25 12:57 Respiratory Rate 18 08/23/25 12:57 Blood Pressure 158/83 H 08/23/25 12:57 Pulse Oximetry 99 08/23/25 12:57 Oxygen Delivery Method Room Air 08/23/25 12:57 MDM - URI/Sore Throat MDM Narrative Medical decision making narrative: Strep, Covid-19, and influenza were negative. Chest x-ray was negative for acute findings. Findings were discussed with the patient. She requested a prescription for tessalon perles. Follow up with pcp for a recheck, further evaluation and treatment. Return to the ED for worsening symptoms. Differential Diagnosis Differential diagnosis: Likely upper respiratory infection, viral infection, influenza and other (Covid-19, strep) Medical Records Attestation: I reviewed the patient's medical records. Lab Data Attestation: I reviewed the patient's lab results. Labs: Lab Results 08/23/25 Range/Units 13:20 Influenza Type A Ag Negative Influenza Type B Ag Negative SARS-CoV-2 Ag (CV2AG) Negative (NEGATIVE) Streptococcus Screen Negative Imaging Data Chest x-ray: Attestation: I have reviewed the pertinent imaging results. Radiologist's impression: ITS Impressions Chest X-Ray 08/23/25 13:12 IMPRESSION: No acute cardiopulmonary pathology. Impression dictated by: Oswaldo Riddle M.D. 08/23/2025 1:56 PM Dictation Location: [place] [address] Electronically authenticated by: [id number] Y Date: 08/23/2025 13:56 ECG Data Attestation: ?I have reviewed the pertinent ECG results. (EKG was reviewed by the attending physician. It showed sinus rhythm at a rate of 75. No acute ST segment changes. ) Interpretation: Measurements Intervals [place] Rate: 75 P: 38 RI: 150 QRS: 77 QRSD: 82 T: 28 QT: 370 QTc: 398 Interpretive Statements 1100 Sinus rhythm 9110 normal ECG No previous ECG available for comparison Discharge Plan Discharge Chief Complaint: Upper Respiratory Infection Clinical Impression: Upper respiratory infection, viral Patient Disposition: Home, Self-Care Time of Disposition Decision: 14:04 Condition: Good Mode of Transportation: Private Vehicle Prescriptions / Home Meds: New benzonatate 100 mg capsule 100 mg PO TID PRN (Reason: cough) Qty: 14 0RF Print Language: Mohawk Instructions: Upper Respiratory Infection (ED), Viral Syndrome (ED) Additional Instructions: Return to the ED for worsening symptoms. Referrals: JORDAN STAPLES [Primary Care Provider, Family Practice] - 1 week Discharge Date/Time: 08/23/25 14:11
--- OUTSIDE RECORDS SUMMARY | 2025-08-23 13:27 | XMS_ITS | Encounter Summary ---
Author Organization [id number] [address] 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 Name Role Phone Jean Paul Arango DO Primary Care Provider + [phone] Reason for Visit * ReasonCommentsMed Refill Encounter Details DateTypeDepartmentCare Team (Latest Contact Info)Icpjyqppact92/03/2025Refill [facility] [address] [place] [address] Jean Paul Arango DO [address], [facility] [address] Gastroesophageal reflux disease, unspecified whether esophagitis present Social History Tobacco UseTypesPacks/DayYears UsedDateSmoking Tobacco: Every ShpXkxdhccbqs975 Started: 09/09/1996Smokeless Tobacco: NeverAlcohol UseStandard Drinks/Week CommentsYes0 (1 standard drink = 0.6 oz pure alcohol)occiasonallyAHC Utilities AnswerDate RecordedIn the past 12 months has the [employer], gas, oil, or water [employer] threatened to shut off services in your home?No09/09/2023Social Connection and Isolation PanelAnswerDate RecordedIn a typical week, how many times do you talk on the phone with family, friends, or neighbors?More than three times a week09/18/2022How often do you get together with friends or relatives?Once a week09/18/2022How often do you attend hinduism or mu-ism services?Never2Do you belong to any clubs or organizations such as hinduism groups, unions, fraternal or athletic groups, or school groups?No 09/18/2022How often do you attend meetings of the clubs or organizations you belong to?Never09/18/2022re you , , , , never , or living with a partner?Jurlrcn4909/18/2022UDIT-CAnswerDate RecordedQ1: How often do you have a drink containing alcohol?2-4 times a month09/18/2022Q2: How many drinks containing alcohol do you have on a typical day when you are drinking?3 or Q3: How often do you have six or more drinks on one occasion?Less than smeghqj0009/18/2022verall Financial Resource Strain (CARDIA) AnswerDate RecordedHow hard is it for you to pay for the very basics like food, housing, medical care, and heating?Not very hard09/18/2022HQ-2AnswerDate RecordedTotal Ovpsy48612/06/2023[facility] [place] of Occupational Health - Occupational Stress QuestionnaireAnswerDate RecordedDo you feel stress - tense, restless, nervous, or anxious, or unable to sleep at night because yourmind is troubled all the time - these days?To some nnqmop5909/18/2022Exercise Vital Sign AnswerDate RecordedOn average, how many days per week do you engage in moderate to strenuous exercise (like a brisk walk)?1 day09/18/2022n average, how many minutes do you engage in exercise at this level?0 min09/18/2022RAPARE - TransportationAnswerDate RecordedIn the past 12 months, has lack of transportation kept you from medical appointments or from getting medications?No 09/18/2022In the past 12 months, has lack of transportation kept you from meetings, work, or from getting things needed for daily living?No09/18/2022 ChildcareAnswerDate RecordedDo problems getting child psychology teacher make it difficult for you to work or study?No09/18/2022EmploymentAnswerDate RecordedDo you need help finding a local career center and/or a training program?No09/18/2022Hunger ScreeningAnswerDate RecordedWithin the past 12 months we worried whether our food would run out before we got money to buy more.Never True05/21/2025Within the past 12 months the food we bought just didn't last and we didn't have money to get more.Never True05/21/2025Purpose - LifeAnswerDate RecordedI have a purpose and direction in my life.Agree09/18/2022EducationAnswerDate RecordedWhat is the highest level of school you have completed or the highest degree you have received?Associate degree: occupational, technical, or vocational program 09/18/2022CommentsUnknownSex and Gender InformationValueDate RecordedSex Assigned at BirthNot on fileLegal QcbKubgcd85/02/2022 11:18 AM EDTGender IdentityNot on fileSexual OrientationNot on filedocumented as of this encounter Miscellaneous Notes * Telephone Encounter - Jean Paul Arango DO - 08/16/2025 12:24 AM EST Rx sent in. She is due for a wellness appointment anytime documented in this encounter Plan of Treatment Not on file documented as of this encounter Visit Diagnoses Diagnosis Gastroesophageal reflux disease, unspecified whether esophagitis present documented in this encounter Additional Health Concerns AssessmentNoted TimePHQ-9 Depression Total Score: 4:10 PM EST documented as of this encounter Care Teams Team MemberRelationshipSpecialtyStart DateEnd Date Jean Paul Arango DO [address], [place] [address] PCP - GeneralFamily Medicine06/15/22documented as of this encounter
--- OUTSIDE RECORDS SUMMARY | 2025-08-23 13:27 | XMS_ITS | Clinical Summary ---
Author Organization [employer] [facility] Address [id number] [address] [place] [address] Care Team Providers Care Architectural Representative Name Role Phone FadiJean Paul tong Primary Care Provider Allergies Active AllergyReactionsCriticalityNoted DateCommentsInfliximabAnaphylaxisHigh 05/13/2013 Paralysis x3 days Medications MedicationSigDispense QuantityRefillsLast FilledStart DateEnd DateStatus DULoxetine (CYMBALTA) 30 mg capsule TAKE 1 CAPSULE BY MOUTH IN THE MORNING WITH 60MG DOSE FOR A TOTAL OF 90MG 08/20/2022ctive estradioL (ESTRACE) 2 mg tablet estradiol 2 mg tablet TAKE 1 TABLET BY MOUTH EVERY DAY04/10/2022ctive ibuprofen (MOTRIN) 800 mg tablet 04/10/2022ctive LORazepam (ATIVAN) 1 mg tablet TAKE 1 TABLET BY MOUTH EVERYDAY AT UOIFAKZ8508/20/2022ctive cyclobenzaprine (FLEXERIL) 10 mg tablet cyclobenzaprine 10 mg tablet TAKE 3 TABLETS BY MOUTH EVERY DAY AT BEDTIME 09/09/2023ctive traMADoL (ULTRAM) 50 mg tablet Take 1 tablet (50 mg total) by mouth 2 (two) times a day as needed.08/26/2024 Active famotidine (PEPCID) 20 mg tablet Indications:Gastroesophageal reflux disease, unspecified whether esophagitis presentTAKE 1 TABLET BY MOUTH EVERY DAY AT NIGHT 90 tablet 5Active famotidine (PEPCID) 20 mg tablet Indications:Gastroesophageal reflux disease, unspecified whether esophagitis presentTake 1 tablet (20 mg total) by mouth in the morning. 90 tablet Discontinued Active Problems ProblemNoted DateDiagnosed DateCurrent fcsitf6709/18/2022Gastroesophageal reflux rovvcsu5209/18/2022Gross mgdnulhkg32/06/5625Slywkwgz61/06/2022alpitations 2Rheumatoid kuspkedld79/06/2022Facial vbykxosozxa18/09/2021Generalized anxiety ujvsdnmh74/09/2021rohn akpglrq5605/30/2020Premature atrial contraction 05/30/2020 Encounters DateTypeDepartmentCare VrdxKwwfycugetg49/03/2025Refill [facility] [address] [place] [address] Jean Paul Arango, Gastroesophageal reflux disease, unspecified whether esophagitis presentfrom Last 3 Months Immunizations ImmunizationAdministration DatesNext DueCOVID-19 Vaccine, vector-nr, rS-Ad26, PF, 0.5mL09/14/2021,05/16/2021Hepatitis A005/11/2020,07/14/2019Hepatitis B 05/04/1999Influenza, Im Trivalent Afsdwtolmqhl54/01/2019Influenza, Injectable, Mdck, Preservative Free, Quad10/26/2022Influenza, Injectable, Quadrivalent 07/08/2019Influenza, Injectable, quadrivalent (PF)12/02/2021Tdap12/02/2021 Family History Medical HistoryRelationNameCommentsDiabetesFatherage 69 in 23Heart attackMother Thyroid cancerMotherNo Known ProblemsSon 1No Known ProblemsSon 2RelationName StatusCommentsFatherAliveMotherDeceasedSon 1AliveSon 2Alive Social History Tobacco UseTypesPacks/DayYears UsedDateSmoking Tobacco: Every ZlyDpdkkffadx678 Started: 09/09/1996Smokeless Tobacco: Never Tobacco Cessation:Ready to Q uit: Not Asked; Counseling Given: Not Answered Alcohol UseStandard Drinks/WeekCommentsYes0 (1 standard drink = 0.6 oz pure alcohol)occiasonallyAHC UtilitiesAnswerDate RecordedIn the past 12 months has the [employer], gas, oil, or water company threatened to shut off services in your home?No09/09/2023Social Connection and Isolation PanelAnswerDate RecordedIn a typical week, how many times do you talk on the phone with family, friends, or neighbors?More than three times a week09/18/2022How often do you get together with friends or relatives?Once a week09/18/2022How often do you attend sabianism or samaritan services?Never2Do you belong to any clubs or organizations such as sabianism groups, unions, fraternal or athletic groups, or school groups?No 09/18/2022How often do you attend meetings of the clubs or organizations you belong to?Never09/18/2022re you , , , , never , or living with a partner?Vwvyqmh4309/18/2022UDIT-CAnswerDate RecordedQ1: How often do you have a drink containing alcohol?2-4 times a month09/18/2022Q2: How many drinks containing alcohol do you have on a typical day when you are drinking?3 or Q3: How often do you have six or more drinks on one occasion?Less than pgdctig0409/18/2022verall Financial Resource Strain (CARDIA) AnswerDate RecordedHow hard is it for you to pay for the very basics like food, housing, medical care, and heating?Not very hard09/18/2022HQ-2AnswerDate RecordedTotal Fuudc31212/06/2023[facility] [place] of Occupational Health - Occupational Stress QuestionnaireAnswerDate RecordedDo you feel stress - tense, restless, nervous, or anxious, or unable to sleep at night because yourmind is troubled all the time - these days?To some psknie5909/18/2022Exercise Vital Sign AnswerDate RecordedOn average, how many [...] daily living?No09/18/2022 ChildcareAnswerDate RecordedDo problems getting child welfare social worker make it difficult for you to work [...] InformationValueDate RecordedSex Assigned at BirthNot on fileLegal TfmUqecxq73/02/2022 11:18 AM EDTGender IdentityNot on fileSexual OrientationNot on file Last Filed Vital Signs Vital SignReadingTime TakenCommentsBlood Qyijxsmq83/5208 7:00 PM EDT Vlejt6513/08/2025 7:02 PM LKONbuuadeuywn01.4 ??C (97.6 ??F)05/21/2025 5:55 PM EDTRespiratory Fmsx3201 7:02 PM EDTOxygen Qgjecxybzw62%05/21/2025 6:45 PM EDTInhaled Oxygen Concentration--Iwrecd91.7 kg (158 lb)05/21/2025 5:55 PM EDT Kvnmth809.6 cm (5' 6 )05/21/2025 5:55 PM EDTBody Mass Index25.508 5:55 PM EDT Plan of Treatment Health MaintenanceDue DateLast DoneCommentsTobacco Qtapvkodff1977Adult BMI Follow Up Plan08/07/19955033Vxszgotgq17/22/202110/, 10/24/2018, 10/24/2018 COVID-19 Vaccine ( season)512/11/2020, 05/16/2021Influenza Vgdfcfr02/, 12/02/2021, 07/14/2019, Additional history exists Depression Lstcebtcz82/Tobacco Bensydkum80/09/764480/06/2025 Adult BMI Qzbvtdwtr35/05/2025DTaP,Tdap and Td Vaccines (2 - Td or Tdap) Medical Devices Not on file Insurance * Guarantor: Akin Watts TypeRelation to PatientDate of BirthPhone Billing AddressPersonal/NisutqFujy1975 [address] [place] [address] [place], [place] [id number] Care Teams Team MemberRelationshipSpecialtyStart DateEnd Date Jean Paul Arango DO [address] [facility], [place] [address] PCP - GeneralFamily Medicine06/15/22
--- OUTSIDE RECORDS SUMMARY | 2025-08-23 13:27 | XMS_ITS | Clinical Summary ---
Author Organization [facility] Address [address] [place] [id number] Care Team Providers Care Piano Sounding Board Matcher Name Role Phone Angie Hernandez MD Unavailable [phone] Jean Paul Arango DO Primary Care Provider Allergies Active AllergyReactionsCriticalityNoted DateCommentsInfliximabOther: See Xnymnojy03/31/2013 Paralysis x3 days Medications MedicationSigDispense QuantityRefillsLast FilledStart DateEnd DateStatus cyclobenzaprine (FLEXERIL) 10 mg tablet Take 10 mg by mouth daily at bedtime.Active magnesium oxide 400 mg tablet Take 1 tablet by mouth once daily. 30 tablet ctive DULoxetine (CYMBALTA) 30 mg capsule Take 30 mg by mouth every morning.08/01/2020Active estradiol (ESTRACE) 1 mg tablet Take 1 mg by mouth once daily.10/24/2020ctive LORazepam (ATIVAN) 0.5 mg Take 0.5 mg by mouth once daily.10/31/2020ctive PLENVU 140-9-5.2 gram ppks 11/02/2020ctive nabumetone (RELAFEN) 750 mg tablet Take 1 tablet by mouth every 12 hours.10/05/2024ctive Active Problems No known active problems Social History Tobacco UseTypesPacks/DayYears UsedDateSmoking Tobacco: Every Day Tobacco Cessation:Ready to Q uit: Not Asked; Counseling Given: Not Answered Alcohol UseStandard Drinks/WeekCommentsNot Asked0 (1 standard drink = 0.6 oz pure alcohol)PHQ-2AnswerDate RecordedPHQ-2 [id number] Deprivation IndexAnswerDate RecordedNational Score (1-100), lower number is lower risk78 12/28/2024State Score (1-10), lower number is lower jpky28112/28/2024Data from: https://www.neighborhoodatlas.medicine[facility]/. Last address used for calculationPO BOX CommentsNoSex and Gender InformationValue Date RecordedSex Assigned at BirthNot on fileLegal KqqVonbeu46/02/2012 8:35 AM ESTGender IdentityNot on fileSexual OrientationNot on file Last Filed Vital Signs Vital SignReadingTime TakenCommentsBlood Hqmjvonj320/77012/28/2024 10:16 AM EDT Huppy000112/28/2024 10:16 AM EDTTemperature--Respiratory Rate--Oxygen Saturation 97%12/28/2024 10:16 AM EDTInhaled Oxygen Concentration--Cqnwmc11.7 kg (158 lb 1.1 oz)12/28/2024 10:16 AM EDTHeight--Body Mass Index-- Plan of Treatment Health MaintenanceDue DateLast DoneCommentsAnxiety Clrfatnat83/25/1995Depression Ammbzxpsz33/25/1995HIV Aztdjumcg26/25/1995Hepatitis C Bojydchwj74/25/1995 Pneumococcal Vaccine (1 of 2 - PCV)1996Cervical Cancer Ynypchrdx51/25/1998 Hepatitis B Vaccine (2 of 3 - 19+ 3-dose series)Mammogram Myeadmtyx26, 10/24/2018, 10/24/2018CT Unvkjpmbsdjp47/25/2022 Cologuard (FIT-DNA)08/07/20226713Bnmmiadhlgc64/25/2022olorectal Cancer Screening 2022Fecal Occult Blood2022Lipid Ggmghzfnz93/ Walzdiwvhfnqe75/25/2022ovid-19 Vaccine (3 - 2024- season)2025 09/14/2021, 05/16/2021Influenza Vaccine (#1)501/, 12/02/2021, 07/14/2019, Additional history existsDiabetes Qdjqycjgo81/07/890252/04/2024 DTaP,Tdap,Td Vaccine (2 - Td or Tdap)/ Insurance Care Teams Team MemberRelationshipSpecialtyStart DateEnd Date Jean Paul Arango DO [address] [place] [id number] PCP - GeneralFamily Medicine11/07/20 Angie Hernandez MD [address] [place] [address] IdwvrpvyhZdlaclchvyn72/18/20
--- OUTSIDE RECORDS SUMMARY | 2025-08-23 13:27 | XMS_ITS | Clinical Summary ---
Author Organization [facility] Address [address], [address] [place] [address] Care Team Providers Care Advertising Representative Name Role Phone JasonJean Paul boyer Primary Care Provider + [phone] Allergies Active AllergyReactionsCriticalityNoted YxlgGqtzaiuqLoehvvuewlVtcu85/06/2024 paralysis Social History Tobacco UseTypesPacks/DayYears UsedDateSmoking Tobacco: Every Day Tobacco Cessation:Ready to Q uit: Not Asked; Counseling Given: Not Answered Alcohol UseStandard Drinks/WeekCommentsYes0 (1 standard drink = 0.6 oz pure alcohol)AUDIT-CAnswerDate RecordedQ1: How often do you have a drink containing alcohol?4 or more times a week09/18/2024Q2: How many drinks containing alcohol do you have on a typical day when you are drinking?3 or Q3: How often do you have six or more drinks on one occasion?Never09/18/2024Interpersonal Safety Domain Source: IP Abuse ScreeningAnswerDate RecordedPhysical abuseDenies 09/18/2024Verbal sfbyuRwvvqv58/06/2024Emotional puhvqLdcobn55/06/2024Financial ythcjNlvunm31/06/2024Sexual bdskcNmkvnz47/06/2024CommentsUnknownSex and Gender InformationValueDate RecordedSex Assigned at BirthNot on fileLegal Sex Bsrbzy7609/18/2024 11:37 PM ESTGender IdentityNot on fileSexual OrientationNot on file Last Filed Vital Signs Vital SignReadingTime TakenCommentsBlood Wvobfyqf679/7509/19/2024 4:20 AM EST Vhxud715409/19/2024 4:20 AM TDGBfgryazjluo48.6 ??C (97.8 ??F)09/18/2024 11:40 PM ESTRespiratory Ssmz057311/20/2023 5:46 AM ESTOxygen Axzalzrilg711%09/19/2024 4:20 AM ESTInhaled Oxygen Concentration--Hifqsk41 kg (150 lb)09/18/2024 11:40 PM EST Kmibgx850.6 cm (5' 6 )09/18/2024 11:40 PM ESTBody Mass Index24. 11:40 PM EST Plan of Treatment Health MaintenanceDue DateLast DoneCommentsDepression Suudxz9608/07/1989HIV screen 1992Hepatitis C tvbxpf8808/07/1995Pneumococcal 0-49 years Vaccine (1 of 2 - PCV)1996Pap smear1998Hepatitis B vaccine (2 of 3 - 19+ 3-dose series)Cervical cancer jjdspq0208/07/2007HPV (without or with Pap)08/07/20072570Wklkes60/25/2017Breast cancer wgoccc76, 10/24/2018, 10/24/20183142Sjznwuljiqj51/25/2022olorectal Cancer Qbioip2408/07/2022 FIT/FOBT: Average risk2022Fecal-DNA (Cologuard): Average risk2022 Sigmoidoscopy/CT niotrnasdmfi21/25/2022Flu vaccine (#1)501/, 12/02/2021, 07/14/2019, Additional history existsCOVID-19 Vaccine (2 - 2024- season)508/1DTaP/Tdap/Td vaccine (2 - Td or Tdap)12/02/2031 12/02/2021Hepatitis A vaccineAged Out05/11/2020, 07/14/2019No longer eligible based on patient's age to complete this topicHib vaccineAged OutNo longer eligible based on patient's age to complete this topicMeningococcal (ACWY) vaccineAged OutNo longer eligible based on patient's age to complete this topic Meningococcal B vaccineAged OutNo longer eligible based on patient's age to complete this topicPolio vaccineAged OutNo longer eligible based on patient's age to complete this topic Insurance Care Teams Team MemberRelationshipSpecialtyStart DateEnd Date Jean Paul Arango DO [address] [place] [address] [facility]
--- OUTSIDE RECORDS SUMMARY | 2025-08-23 13:28 | XMS_ITS | Clinical Summary ---
Author Organization [facility] Address [address] [place] [address] Care Team Providers Care Cheese Tester Name Role Phone Jean Paul Arango MD Primary Care Provider + [phone] Allergies Active AllergyReactionsCriticalityNoted DateCommentsInfliximabOther,Rash, Anaphylaxis,NmbgxapWdee75/31/2013 Paralysis x3 days Medications MedicationSigDispense QuantityRefillsLast FilledStart DateEnd DateStatus DULoxetine (Cymbalta) [address] capsule TAKE 1 CAPSULE BY MOUTH IN THE MORNING WITH 60MG DOSE FOR A TOTAL OF 90MGActive cyclobenzaprine (Flexeril) 10 MG tablet TAKE 3 TABLETS BY MOUTH AT CPMKMUL8505/22/2023ctive ibuprofen 800 MG tablet Take 800 mg by mouth 2 (two) times a day as needed.05/22/2023ctive LORazepam (Ativan) 0.5 MG tablet Take 0.5 mg by mouth at bedtime.Active traMADol (Ultram) 50 MG tablet Take 50 mg by mouth 2 (two) times a day as needed.05/22/2023ctive Lansoprazole (PREVACID PO) PrevacidActive SALSALATE PO SalsalateActive Magnesium Gluconate (MAGNESIUM 27 PO) MagnesiumActive Citalopram Hydrobromide (CELEXA PO) CeleXAActive famotidine (Pepcid) 20 MG tablet Take 20 mg by mouth at bedtime.09/09/2023ctive estradiol (Estrace) 2 MG tablet Indications:Menopausal symptomsTAKE 1 TABLET (2 MG) BY MOUTH IN THE MORNING 90 tablet 5010/22/2025ctive Active Problems ProblemNoted DateDiagnosed DateLumbar radiculopathy, right02/24/2025 Family History Medical HistoryRelationNameCommentsCancerFatherDiabetesFatherHeart diseaseFather CancerFather's BrotherDiabetesFather's BrotherHeart diseaseFather's Brother AsthmaFather's SisterCancerFather's SisterDiabetesFather's SisterHeart disease Father's SisterCancerMaternal GrandfatherAsthmaMaternal GrandmotherCancer Maternal GrandmotherDiabetesMaternal GrandmotherHeart diseaseMaternal GrandmotherAsthmaMotherDiabetesMotherHeart diseaseMotherThyroid cancerMother AsthmaMother's BrotherCancerMother's BrotherDiabetesMother's BrotherAsthma Mother's SisterCancerMother's SisterDiabetesMother's SisterHeart diseaseMother's SisterAsthmaPaternal GrandfatherCancerPaternal GrandfatherRelationNameStatus CommentsFatherAliveFather's BrotherFather's SisterMaternal GrandfatherMaternal GrandmotherMotherAliveMother's BrotherMother's SisterPaternal Grandfather Social History Tobacco UseTypesPacks/DayYears UsedDateSmoking Tobacco: Every DayCigarettes Smokeless Tobacco: Never Tobacco Cessation:Ready to Q uit: Not Asked; Counseling Given: Not Answered Alcohol UseStandard Drinks/WeekCommentsYes2 (1 standard drink = 0.6 oz pure alcohol)caffeine more than 4 cups/dayCommentsNoSex and Gender InformationValueDate RecordedSex Assigned at BirthNot on fileLegal SexFemale 12/26/2022 7:15 PM EDTGender IdentityNot on fileSexual OrientationNot on file Last Filed Vital Signs Vital SignReadingTime TakenCommentsBlood Ddqlplxj580/80111/12/2022 1:34 PM EST Pulse--Temperature--Respiratory Rate--Oxygen Saturation--Inhaled Oxygen Concentration--Oriasr61 kg (150 lb)09/12/2023 1:34 PM BMXIwqlrw390.8 cm (5' 10 ) 08/14/2021 12:00 PM EDTBody Mass Index21.5208/14/2021 12:00 PM EDT Plan of Treatment Health MaintenanceDue DateLast DoneCommentsCT Hhcfcqebfxaq1977Colonoscopy 1977Colorectal Cancer Ihtqaytto1977FIT-DNA1977FIT1977 FOBT1977 8219Hqoxbekwoqqnm1977Pap Smear1998Cervical Cancer Yudkzjlaz40/25/2007HPV/Bzpetv5208/07/20070444Gwiygvkhi57, 10/24/2018, 10/24/2018COVID-19 Vaccine ( season)512/11/2020, 05/16/2021Influenza Vaccine (#1)/, 12/02/2021, 07/14/2019, Additional history existsPneumococcal Vaccine: Pediatrics (0 to 5 Years) and At- Risk Patients (6 to 64 Years)Aged OutNo longer eligible based on patient's age to complete this topic Procedures Procedure NamePriorityDate/TimeAssociated DiagnosisCommentsBI MAMMOGRAM SCREENING TOMOSYNTHESIS HQTWHUOXLTeaguwt60/22/2020 Tobacco abuse counseling Menopausal and female climacteric states Encounter for screening for human papillomavirus (HPV) Encounter for gynecological examination (general) (routine) without abnormal findings Encounter for screening mammogram for malignant neoplasm of breast Encounter for screening for malignant neoplasm of vagina from Last 3 Months or Most Recently Relevant to Health Maintenance Results * Bilateral screening mammogram with tomosynthesis (08/04/2020)Anatomical Region LateralityModalityBreastBilateralMammographySpecimen (Source)Anatomical Location / LateralityCollection Method / VolumeCollection TimeReceived Time Impressions 08/04/2020 12:00 AM EDT BIRADS 1 : NEGATIVE, NORMAL INTERVAL FOLLOW UP. Board certified radiologist. ??Accredited by the ACR and FDA. MAMMOGRAPHY IS VERY IMPORTANT TO YOUR HEALTH. [employer]RENT [employer] GUID[employer] RECOMMENDS ANNUAL MAMMOGRAPHY BEGINNING AT AGE 42. THIS FACILITY USUALLY USES A REMINDER SYSTEM TO ENSURE ALL POSITIONS RECEIVED REMINDER NOTIFICATIONS AT THE TIME BASED ON THE RECOMMENDATIONS OF THIS EXAM. Report reported and signed by Souleymane Simpson on 08/08/2020 1211 Narrative 08/04/2020 12:00 AM EDT PERFORMED AT [facility] LOCATION:[place] [id number] CLINICAL HISTORY: Screening Mammogram COMPARISON: 10/24/2018. TECHNIQUE: ??2D and 3D Tomosynthesis of the right and left breasts was performed. FINDINGS: Both breasts remain heterogeneously dense bilaterally, with stable asymmetry. There are no suspicious masses, areas of suspicious microcalcifications or areas of architectural distortion identified. No evidence of skin thickening. default value Procedure Note CONVERSION, GENERIC - 04/19/2023 PERFORMED AT [facility] LOCATION:[place] [address] CLINICAL HISTORY: Screening Mammogram COMPARISON: 10/24/2018. TECHNIQUE: 2D and 3D Tomosynthesis of the right and left breasts wasperformed. FINDINGS: Both breasts remain heterogeneously dense bilaterally, with stableasymmetry. There are no suspicious masses, areas of suspicious microcalcifications orareas of architectural distortion identified. No evidence of skin thickening.default value IMPRESSION: BIRADS 1 : NEGATIVE, NORMAL INTERVAL FOLLOW UP. Board certified radiologist. Accredited by the ACR and FDA. MAMMOGRAPHY IS VERY IMPORTANT TO YOUR HEALTH. [employer]RENT [employer] GUID[employer] RECOMMENDS ANNUAL MAMMOGRAPHY BEGINNING AT AGE 42. THIS FACILITY USUALLY USES A REMINDER SYSTEM TO ENSURE ALL POSITIONSRECEIVED REMINDER NOTIFICATIONS AT THE TIME BASED ON THE RECOMMENDATIONS OF THIS EXAM. Report reported and signed by Souleymane Simpson on 08/08/2020 1211 Authorizing ProviderResult TypeResult StatusBrcrystal Cooper MDIMG BI PROCEDURES Final Result from Last 3 Months or Most Recently Relevant to Health Maintenance Insurance Care Teams Team MemberRelationshipSpecialtyStart DateEnd Date Jean Paul Arango MD PCP - GeneralFamily Ikcypfmg00/30/23
--- NOTE | 2025-08-23 13:29 | ECG_ITS ---
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 Measurements Intervals [place] Rate: 75 P: 38 W[place]: 150 QRS: 77 QRSD: 82 T: 28 QT: 370 QTc: 398 Interpretive Statements 1100 Sinus rhythm 9110 normal ECG Compared to ECG 12/06/2021 19:28:22 No significant changes Electronically Signed On 08-23-2025 19:23:35 EST by JULIETH VU M.D.
--- OUTSIDE RECORDS SUMMARY | 2025-08-23 13:36 | XMS_ITS | CCD ---
Author Organization [facility] CliniSyva Care Team Providers Care Seed Laboratory Assistant Name Role Phone Gaby Islas Unavailable FurDO Jean Paul boyer Primary Care Provider MD Darrel Barrow Attending Provider MARKER ., DR GRANDE Attending Unavailable MARKER ., DR GRANDE Admitting Unavailable GRECHNY ., KERRY MURRY Consulting Unavailabl e FURRACHEL, DR JEAN PAUL Wilks Primary Care Unavailable MARKER ., DR GRANDE Consulting Unavailable YAZ JEROME Consulting Unavailable Honorio Jasso Consulting Unavailable NICOLAS GO Attending Unavailable NICOLAS GO Admitting Unavailable FURLONG, DR JEAN PAUL Wilks Primary Care Unavailable NICOLAS GO Consulting Unavailable Jean Paul Staples DO Primary Care Provider [phone] [place] RICHARDS-CMoraima Attending Provider Moraima Samson Admitting Unavailable Moraima Samson Attending Unavailable Jean Paul Staples Primary Care Unavailable JEAN PAUL STAPLES Primary Care Unavailable XIOMARA RENDON Attending Unavailable Furronang Jean Paul RM Primary Care Provider Jean Paul Staples DO Primary Care Provider JEAN PAUL STAPLES Attending Unavailable JEAN PAUL STAPLES Referring Unavailable JEAN PAUL STAPLES Primary Care Unavailable JEAN PAUL STAPLES Attending Unavailable JEAN PAUL STAPLES Referring Unavailable JEAN PAUL STAPLES Primary Care Unavailable JEAN PAUL STAPLES Primary Care Physician [phone] Angie Hernandez MD Unavailable Jean Paul Staples DO Primary Care Provider JEAN PAUL STAPLES Primary Care Unavailab ROBYN Qureshi Attending Unavailable Jean Paul Staples MD Primary Care Provider [phone] REGGIE MARTINEZ Attending Unavail able REGGIE MARTINEZ Attending Unavail able MORAIMA SAMSON Referring Unavailable DUANE LOBO Attending Unavailab JEAN PAUL Valiente Primary Care Unavailable MERLINE BOOTH Attending Unavailable Jean Paul Staples DO Primary Care Provider Allergies Allergy ClassificationReported Allergen(s)Allergy TypeDate of OnsetReaction(s) Facility (17 sources)inFLIXimab; Translations: [INFLIXIMAB]Drug Glgblws87-53-8705 Anaphylaxis, Anaphylactic shock due to serum (disorder), Other: See Comments [facility] (2 sources)inFLIXimab; Translations: [Remicade]Drug Gcjxnxx74-31-6108NnnThe [facility] (1 source)inFLIXimabDrug Qwxbtcd55-07-4891UfopyocshDayton Osteopathic Hospital Repository (4 sources)inFLIXimabDrug Dolmpaq70-77-5785Hkwwl, Rash, Anaphylaxis, UnknownNOMS Healthcare Medications Current Medications MedicationDrug Class(es)DatesSig (Normalized)Sig (Original)Ascorbic Acid / POLYETHYLENE GLYCOL 3350 / Potassium Chloride / Sodium Ascorbate / Sodium Chloride / sodium sulfate (1 source)Osmotic Laxative, Vitamin CStart: 39-98-6824OEBFTY 140-9-5.2 gram ppks 11/02/2020 Activeazithromycin 250 mg oral tablet (3 sources)Macrolide AntimicrobialStart: 90-44-9603Dtbipfufsjiy 250 mg tablet Active 250 MG PO Daily January 06, 2020 11:00pm Take two tabs (500mg) on day 1 then take one tab daily for 4 daysCitalopram (4 sources)Serotonin Reuptake InhibitorCitalopram Hydrobromide (CELEXA PO) CeleXA Activecyclobenzaprine hydrochloride 10 mg oral tablet (20 sources)Muscle RelaxantStart: 66-16-0433gbot 3 tablets by mouth once daily at bedtimecyclobenzaprine (FLEXERIL) 10 mg tablet cyclobenzaprine 10 mg tablet TAKE 3 TABLETS BY MOUTH EVERY DAY AT BEDTIME 09/09/2023 ActiveStart: 04-10-2022 cyclobenzaprine 10 mg Tab 10 mg = 1 tab(s) Start Date: 04/10/22 Status: Ordered Start: 07-08-2017 End: 64-22-4633hbbv 3 tablets by mouth at bedtimeCyclobenzaprine 10 mg Tablet Active 30 MG PO Bedtime August 05, 2019 11:00pmStart: 07-08-2017 End: 05-19-6321bgyc 30 mg by mouth at bedtimeCyclobenzaprine Active 30 MG PO Bedtime August 06, 2019 12:00amCymbalta 60 mg Cap-DR (1 source)Start: 52-32-6914oswh 1 capsule by mouth once dailyCymbalta 60 mg Cap- DR 60 mg, Oral, Daily Start Date: 04/10/22 Status: OrderedDULoxetine 30 mg delayed release oral capsule (14 sources)Serotonin and Norepinephrine Reuptake InhibitorStart: 15-91-9746ldks 1 capsule by mouth in the morningDULoxetine (CYMBALTA) 30 mg capsule TAKE 1 CAPSULE BY MOUTH IN THE MORNING WITH 60MG DOSE FOR A TOTAL OF 90MG 08/20/2022 Activetake 1 capsule by mouth every twelve hoursCymbalta 20 MG 1 capsule Orally Twice a day Activeestradiol 0.1 mg/ml vaginal cream (15 sources)EstrogenStart: 47-42-2620Ooahatl 0.1 mg/g Cream See Instructions, 42.5 gm, Refill(s) 6, apply a pea-sized amount vaginally and around the urethra nightly x 3 weeks, then 3x per week thereafter, [facility]/pharmacy #[id number], 165, cm, 11:36:00 EST, Height/Length Dosing, 70.2, kg, 11/05/24 11:36:00 EST, Weight Dosing Start Date: 11/05/24 Status: OrderedStart: 04-10-2022 End: 74-91-0836bkas 1 tablet by mouth once dailyestradioL (ESTRACE) 2 mg tablet estradiol 2 mg tablet TAKE 1 TABLET BY MOUTH EVERY DAY 04/10/2022 ActiveStart: 26-28-9985mhyh 1 tablet by mouth once dailyestradiol (ESTRACE) 1 mg tablet Take 1 mg by mouth once daily. 10/24/2020 ActiveEstrogens, Conjugated (INTERMEDIATE) (1 source)EstrogenEstrogens Conjugated Activefamotidine 20 mg oral tablet (17 sources)Histamine-2 Receptor AntagonistStart: 25-88-3765nwug 1 tablet by mouth once dailyfamotidine (PEPCID) 20 mg tablet Indications: Gastroesophageal reflux disease, unspecified whether esophagitis present TAKE 1 TABLET BY MOUTH EVERY DAY AT NIGHT 90 tablet 08/16/2025 ActiveStart: 09-09-2023 End: 58-13-2447ybby 1 tablet by mouth in the morningfamotidine (PEPCID) 20 mg tablet Indications: Gastroesophageal reflux disease, unspecified whether e sophagitis present Take 1 tablet (20 mg total) by mouth in the morning. 90 tablet 1 06/01/2024 08/16/2025 Discontinuedtake 1 tablet by mouth every twenty- four hoursPepcid 20 mg 1 tablet Orally Once a day for 1 month ActiveFLUoxetine (1 source)Serotonin Reuptake InhibitorFluoxetine ActivehydrOXYzine hydrochloride 25 mg oral tablet (1 source)AntihistamineStart: 48-23-1429wjbk 1 tablet by mouth every eight hours as neededhydrOXYzine HCl 25 MG 1 tablet as needed at nighttime Orally every 8 hrs for 7 days Mar, Activeibuprofen 800 mg oral tablet (15 sources)Nonsteroidal Anti-inflammatory DrugStart: 54-67-8202ngchcduog (MOTRIN) 800 mg tablet 04/10/2022 ActiveStart: 07-08-2017 End: 36-45-3495frin 1 tablet by mouth every four to six hours as needed for pain Ibuprofen 600 mg Tablet Discontinued 600 MG PO EVERY 4-6 HOURS as needed for Pain July 07, 2017 11:00pm December 20, 2017 11:24amlansoprazole 15 mg delayed release oral capsule (7 sources)Proton Pump InhibitorStart: 45-64-4248tiiz 1 capsule by mouth once daily at bedtimeLansoprazole (Prevacid) 15 mg Capsule,Delayed Release(Dr/Ec) Active 15 MG PO Daily at bedtime July 07, 2017 11:00pmLansoprazole (PREVACID PO) Prevacid ActiveLORazepam 1 mg oral tablet (18 sources)BenzodiazepineStart: 48-40-4799jwzr 1 tablet by mouth once daily at bedtimeLORazepam (ATIVAN) 1 mg tablet TAKE 1 TABLET BY MOUTH EVERYDAY AT BEDTIME 08/20/2022 ActiveStart: 19-56-3496sqoq 0.5 mg by mouth once dailyLORazepam (ATIVAN) 0.5 mg Take 0.5 mg by mouth once daily. 10/31/2020 ActiveMAGNESIUM GLUCONATE (4 sources)Magnesium Gluconate (MAGNESIUM 27 PO) Magnesium Activemagnesium oxide 400 mg oral tablet (1 source)Start: 91-09-3570cttr 1 tablet by mouth once dailymagnesium oxide 400 mg tablet Take 1 tablet by mouth once daily. 30 tablet 0 05/13/2013 Active methylPREDNISolone 4 mg oral tablet (1 source)CorticosteroidStart: 97-57-6946egzmxxIVXCRKZczmyc 4 MG as directed Orally Mar, Activenabumetone 750 mg oral tablet (2 sources)Nonsteroidal Anti-inflammatory DrugStart: 09-21-2024 End: 55-24-3229adfu 1 tablet by mouth every twelve hoursnabumetone (RELAFEN) 750 mg tablet Take 1 tablet by mouth every 12 hours. 10/05/2024 ActivetraMADol hydrochloride 50 mg oral tablet (14 sources)Opioid AgonistStart: 21-55-6098bqin 1 tablet by mouth twice daily as neededtraMADoL (ULTRAM) 50 mg tablet Take 1 tablet (50 mg total) by mouth 2 (two) times a day as needed. 08/26/2024 ActiveStart: 68-28-6877mqpe 1 tablet by mouth once daily as needed for painTramadol 100 mg Tablet Extended Release 24 Hr Active 100 MG PO Daily as needed for Pain July 07, 2017 11:00pm0.5 ml ustekinumab 90 mg/ml injection (3 sources)Interleukin-12 Antagonist, Interleukin-23 AntagonistStart: 08-21-2017 Ustekinumab (Stelara) 45 mg/0.5 mL Solution Active 0.5 ML SUBCUT EVERY 6 WEEKS August 21, 2017 12:00am Completed/Discontinued Medications MedicationDrug Class(es)DatesSig (Normalized)Sig (Original)acetaminophen 500 mg oral tablet (1 source)Start: 09-19-2024 End: 46-39-2460yxrz 4000 mg by mouth every twenty-four hours1,000 mg, Oral, ONCE, 1 dose, On 09/19/24 at 0440, Maximum dose of acetaminophen is 4000 mg fromall sources in 24 hours.acetaminophen 21.7 mg/ml / HYDROcodone bitartrate 0.5 mg/ml oral solution (3 sources)Opioid AgonistStart: 08-23-2019 End: 54-56-9948wbig 1 mL by mouth four times dailyHydrocodone-Acetaminophen 7.5- 325 mg/15 mL solution Discontinued 5 ML PO Four times daily August 23, 2019 12:00am January 07, 2020 6:17amcelecoxib 100 mg oral capsule (3 sources)Nonsteroidal Anti-inflammatory DrugStart: 08-06-2019 End: 26-80-4961jwum 1 capsule by mouth twice dailyCelecoxib (Celebrex) 100 mg Capsule Discontinued 100 MG PO Twice daily August 05, 2019 11:00pm August 14, 2019 8:18amDexamethasone (1 source)CorticosteroidStart: 09-19-2024 End: 59-64-2604gshh 1 dose by mouth once10 mg, Oral, ONCE, 1 dose, On 09/19/24 at 0542iopamidol (ISOVUE-370) 76 % injection 75 mL (1 source)Start: 09-19-2024 End: 29-95-7666chkt 1 dose intravenously once75 mL, IntraVENous, IMG ONCE PRN, 1 dose, Starting on 09/19/24 at 0048, Until 09/19/24 at 0212, Other Ketorolac (1 source)Nonsteroidal Anti-inflammatory Drug, Cyclooxygenase InhibitorStart: 41-26-1114Msekqxe per 15 mg May, 30 mg1 ml morphine sulfate 4 mg/ml injection (1 source)Opioid AgonistStart: 09-19-2024 End: 44 mg, IntraVENous, ONCE, 1 dose, On 09/19/24 at 0542naproxen 500 mg oral tablet (3 sources)Nonsteroidal Anti-inflammatory DrugStart: 12-20-2017 End: 61-03-3350jeyn 1 tablet by mouth twice daily as needed for painNaproxen 500 mg tablet Discontinued 500 MG PO Twice daily as needed for pain December 20, 2017 12:00am November 27, 2018 2:22pm administer with food or milkpredniSONE 20 mg oral tablet (1 source)Start: 09-30-2020 End: 06-89-6969htve 1 tablet by mouth once dailypredniSONE (DELTASONE) 20 mg tablet Take 20 mg by mouth once daily. 09/30/2020 12/28/2024 Discontinued salsalate 750 mg oral tablet (10 sources)Start: 08-06-2019 End: 33-88-5420iwjj 1 tablet by mouth once daily at bedtime as needed for pain Salsalate 750 mg Tablet Discontinued 1500 MG PO Daily at bedtime as needed for Pain August 05, 2019 11:00pm August 14, 2019 8:18amStart: 08-06-2019 End: 53-21-4893nqsm 1500 mg by mouth once daily at bedtimeSalsalate Discontinued 1500 MG PO Daily at bedtime August 06, 2019 12:00am August 14, 2019 9:1 8amStart: 07-08-2017 End: 40-10-3873tygi 1 tablet by mouth twice dailySalsalate 750 mg Tablet Discontinued 1500 MG PO Twice daily July 07, 2017 11:00pm August 06, 2019 4:03pmStart: 07-08-2017 End: 82-98-2465hzxj 1500 mg by mouth twice dailySalsalate Discontinued 1500 MG PO Twice daily July 08, 2017 12:00am August 06, 2019 5:03pmSALSALATE PO Salsalate Activetriamcinolone acetonide 10 mg/ml injectable suspension (5 sources)CorticosteroidStart: 72-47-2007Uzypoio Mar, 60 mgStart: 91-99-3926DZVPYGJ - 10 mg February, 30 mgStart: 65-43-3060Rcvwqbk -40 mg February, 40 mgStart: 10-76-8422Udwqrot -40 mg Jul, 40 mgStart: 39-56-6126Nfjiyts -40 mg February, 10 mg Problems Active Problems Problem ClassificationProblemDateDocumented DateEpisodic/ChronicAbdominal pain (2 sources)Abdominal pain; Translations: [Unspecified abdominal pain]Onset: 76-17-9022JfvinkigPhqlpwmfstiimv/social admission (4 sources)Encounter for pre-employment examination; Translations: [ENCOUNTER FOR PRE-EMPLOYMENT EXAM]Onset: 71-94-3960QbydicfjCdndjtz disorders (8 sources)Generalized anxiety disorder; Translations: [Generalized anxiety disorder]Onset: 685184-03-9105MhqnejnKvdjmhh dysrhythmias (8 sources)Premature atrial contraction; Translations: [Atrial premature depolarization]Onset: 036799-04-3599JctciuaEpcvewz obstructive pulmonary disease and bronchiectasis (3 sources)Bronchitis; Translations: [Bronchitis, not specified as acute or chronic]87-15-0164VlzeklfiCcppzytbs of teeth and jaw (2 sources)Jaw pain; Translations: [Jaw pain]Onset: 530840-65-8713Fglqijzo Esophageal disorders (16 sources)Diffuse spasm of esophagus; Translations: [Dyskinesia of esophagus] Onset: 535457-96-3926QmzggulTigmh and electrolyte disorders (3 sources)Dehydration; Translations: [Dehydration]98-45-6206CfuonnlzRthoriyi; including migraine (1 source)Headache; Translations: [Nonintractable headache, unspecified chronicity pattern, unspecified headache type]60-02-3010CdhhhiwdZjiobqkb; including migraine (1 source)Headache; including migraine; Translations: [Headache, unspecified] Onset: 22-02-3167Qoezfllpduv (2 sources)Hemorrhoids; Translations: [Other hemorrhoids]EpisodicMood disorders (1 source)Depressive dtiibbrg24-52-4477JpsbcvdXjdanr and vomiting (1 source)Nausea; Translations: [Nausea]EpisodicNonspecific chest pain (3 sources)Atypical chest pain; Translations: [Other chest pain]Onset: 798450-76-4342NdpzjurxUzwbpibvkxsjop (2 sources)Xgibdlhtk90-53-8342QrwimznCimcv and unspecified benign neoplasm (1 source)Benign neoplasm of colon; Translations: [Benign neoplasm of colon, unspecified]EpisodicOther and unspecified benign neoplasm (1 source)History of polyp of colon; Translations: [Personal history of colonic polyps]EpisodicOther complications of (1 source)Morning sickness; Translations: [Mild hyperemesis gravidarum]Episodic Other connective tissue disease (1 source)Muscle rigidity; Translations: [Other specified disorders of muscle] EpisodicOther connective tissue disease (1 source)Other muscle spasm; Translations: [Other muscle spasm]Onset: 93-30-7589FsevnkykUrazf connective tissue disease (1 source)Spasm; Translations: [Other muscle spasm]49-49-4540OnsmkapmRgjuf diseases of bladder and urethra (1 source)Male urethral stricture; Translations: [Unspecified urethral stricture, male, unspecified site]Onset: 10-35-0690AdcfmtbjHbdwh diseases of bladder and urethra (1 source)Urethral zyiajzuju17-31-7239JdkzaqcaVoofy gastrointestinal disorders (1 source)Dysphagia; Translations: [Dysphagia, unspecified]EpisodicOther gastrointestinal disorders (1 source)Diarrhea; Translations: [Diarrhea, unspecified]EpisodicOther injuries and conditions due to external causes (1 source)Injury of left ankle; Translations: [Unspecified injury of left ankle, initial encounter]EpisodicOther lower respiratory disease (1 source)Shortness of breath; Translations: [Shortness of breath]Onset: 12-61-1334ZpnsqrufSfbtu lower respiratory disease (1 source)Shortness of breathOnset: 72-65-4463SvorckppOvtgf lower respiratory disease (1 source)DyspneaOnset: 65-92-2006YscvfibjQebzj non-traumatic joint disorders (4 sources)Pain in left hip; Translations: [PAIN IN LEFT HIP]Onset: 10-17-2022 EpisodicRegional enteritis and ulcerative colitis (11 sources)Crohn's disease; Translations: [Crohn's disease, unspecified, without complications]Onset: 777799-89-8512LhdzvplDdvqmxth codes; unclassified (1 source)Acquired absence of both cervix and uterus; Translations: [ACQUIRED ABSENCE BOTH CERVIX AND UTERUS]Onset: 01-19-2822TjhmruvtPurrbeoebh arthritis and related disease (12 sources)Rheumatoid arthritis; Translations: [Rheumatoid arthritis, unspecified]Onset: 284812-26-6656GprweepJzzjmnibsoa; intervertebral disc disorders; other back problems (2 sources)Degeneration of cervical intervertebral disc; Translations: [Other cervical disc degeneration, unspecified cervical region]99-28-3798Jquuxqa Spondylosis; intervertebral disc disorders; other back problems (7 sources)Sciatica, left side; Translations: [Radiculopathy, lumbar region] Onset: 959920-02-8182DjczmbpcKcudoix and strains (4 sources)Sprain of ankle; Translations: [Sprain of unspecified ligament of left ankle, initial encounter]41-97-8811JjcsvjfkNgerdvybv-related disorders (11 sources)Tobacco user; Translations: [Nicotine dependence, unspecified, uncomplicated]Onset: 093174-42-2290RmjklrzGycrpvukgrf injury; contusion (1 source)Contusion of ankle; Translations: [Contusion of left ankle, initial encounter]EpisodicUrinary tract infections (1 source)Urinary tract infectious diseaseOnset: 67-25-0887MbztbjkjGfglf infection (3 sources)Viral disease; Translations: [Viral infection, unspecified]01-07-2020 Episodic Past or Other Problems Problem ClassificationProblemDateDocumented DateEpisodic/ChronicAllergic reactions (1 source)Allergic contact dermatitis due to plants, except foodOnset: 04-12-2022 Resolved: 88-26-3192WlphlyduPntykcw dysrhythmias (9 sources)Palpitations; Translations: [Palpitations]Onset: EpisodicGenitourinary symptoms and ill-defined conditions (20 sources)Ben hematuria; Translations: [Gross hematuria]Onset: 09-18-2022 07-38-4197ZfzmzcgtLkke disorders (8 sources)Mood disordersOnset: 09-09-2023 Resolved: Other nervous system disorders (9 sources)Facial paresthesia; Translations: [Paresthesia of skin]Onset: 037557-91-2027Bntyvafl Results Test NameValueInterpretationReference RangeFacilityB-TYPE NATRIURETIC PEPTIDEon 10-65-3781Wlistdiwoac peptide B (Bld) [Mass/Vol]10 pg/mLNormal<=100ProLongview Regional Medical CenterComment on above:Performed By: #### BNP #### [facility] ([facility]) [address] [place] [address] VIRBASIC METABOLIC PANELon 33-47-6566Stmae gap [Moles/Vol]7 mmol/LNormal5-15ProLongview Regional Medical CenterComment on above:Performed By: #### BMP #### [facility] ([address] [place] [address] VIRCalcium [Mass/Vol]8.8 mg/dLNormal8.5-10.5PAdams County Regional Medical CenterComment on above:Performed By: #### BMP #### [facility] ([address] [place] [address] VIRChloride [Moles/Vol]101 mmol/NOgcllc13-144MzbXejxjbLongview Regional Medical CenterComment on above:Performed By: #### BMP #### [facility] ([address] [place] [address] VIRCO2 [Moles/Vol]27 mmol/AUpzgqk11-44UbgVemuyjAdams County Regional Medical CenterComment on above:Performed By: #### BMP #### [facility] ([address] [place] [address] VIRCreatinine [Mass/Vol]0.76 mg/dLNormal0.40-1.00ProLongview Regional Medical CenterComment on above:Result Comment: METHOD TRACEABLE TO IDMS STANDARDPerformed By: #### BMP #### [facility] ([address] [place] [address] VIREGFR (CKD-EPI) NON-RACE DEPENDENT>^90Normal>=60ProLongview Regional Medical CenterComment on above:Result Comment: eGFR not reported due to non- numeric value for Creatinine. Reported eGFR is based on the CKD-EPI 2021 equation that does not use a race coefficient.Performed By: #### BMP #### [facility] ([address] [place] [address] VIRGlucose [Mass/Vol]107 mg/sKIqmz17-21GfbDnmnwfLongview Regional Medical CenterComment on above:Performed By: #### BMP #### [facility] ([address] [place] [address] VIRPotassium [Moles/Vol]3.4 mmol/LLow3.5-5.0ProMedica Fall River HospitalComment on above:Performed By: #### BMP #### [facility] ([address] [place] [address] VIRSodium [Moles/Vol]135 mmol/YQgtnjz711-207MigQktxgw [facility] HospitalComment on above:Performed By: #### BMP #### [facility] ([address] [place] [address] VIRUrea nitrogen [Mass/Vol]13 mg/dLNormal5-23ProLongview Regional Medical CenterComment on above:Performed By: #### BMP #### [address] [address] VIRCBC WITH AUTO DIFFERENTIALon 43-83-4730PQXTFIPLQ ABSOLUTE COUNT (10*3/UL) BY AUTOMATED COUNT0.1 10*3/uLNormal0.0-0.2PAdams County Regional Medical CenterComment on above:Performed By: #### CBCA #### [facility] ([address] [address] VIRBASOPHILS RELATIVE PERCENT BY AUTOMATED COUNT0.8 %Normal [facility] CenterCombr[facility] on above:Performed By: #### CBCA #### [facility] ([address] [address] VIRCELLAVISION DIFFERENTIAL TYPEAUTOMATED DIFFERENTIALNormal [facility] CenterComment on above:Performed By: #### CBCA #### [facility] ([address] [address] VIREosinophils (Bld) [#/Vol]0.2 10*3/uLNormal0.0-0.4[facility] Medical CenterComment on above:Performed By: #### CBCA #### [facility] ([address] [address] VIREOSINOPHILS RELATIVE PERCENT BY AUTOMATED COUNT2.8 %Normal [facility] CenterComment on above:Performed By: #### CBCA #### [facility] ([address] [place] [address] VIRErythrocyte distribution width (RBC) [Ratio]13.2 %Normal 11.5-15ProLongview Regional Medical CenterComment on above:Performed By: #### CBCA #### [facility] ([address] [address] VIRHematocrit (Bld) [Volume fraction]35.7 %Pvizgf47-01 [facility] CenterComment on above:Performed By: #### CBCA #### [facility] ([address] [address] VIRHemoglobin (Bld) [Mass/Vol]12.6 g/eGKhflzs27.7-15.5 [facility] CenterComment on above:Performed By: #### CBCA #### [facility] ([address] [address] VIRLYMPHOCYTES ABSOLUTE COUNT (10*3/UL) BY AUTOMATED COUNT3.0 10*3/uLNormal1.0-3.5ProMedRidgecrest Regional HospitalComment on above:Performed By: #### CBCA #### [facility] ([address] [place] [address] VIRLYMPHOCYTES RELATIVE PERCENT BY AUTOMATED COUNT34.0 %Normal [facility] CenterComment on above:Performed By: #### CBCA #### [facility] ([address] [address] VIRMCH (RBC) [Entitic mass]31.6 taLismyo03-38YzgGgboybLongview Regional Medical CenterComment on above:Performed By: #### CBCA #### [facility] ([address] [place] [address] VIRMCHC (RBC) [Mass/Vol]35.2 g/dSPvqbiv34-15QxvKpimtnLongview Regional Medical CenterComment on above:Performed By: #### CBCA #### [facility] ([address] [place] [address] VIRMCV (RBC) [Entitic vol]90 kRYjiqfp55-479SxwIyjtan [facility] HospitalComment on above:Performed By: #### CBCA #### [facility] ([address] [place] [address] VIRMONOCYTES ABSOLUTE COUNT (10*3/UL) BY AUTOMATED COUNT0.6 10*3/uLNormal0.0-0.9[facility] Medical CenterComment on above:Performed By: #### CBCA #### [facility] ([address] [place] [address] VIRMONOCYTES RELATIVE PERCENT BY AUTOMATED COUNT6.3 %Normal [facility] Medical CenterComment on above:Performed By: #### CBCA #### [facility] ([address] [place] [address] VIRNEUTROPHILS ABSOLUTE COUNT BY AUTOMATED COUNT4.9 10*3/uL Normal1.5-6.6[facility] CenterCombronson methodist hospital on above:Performed By: #### CBCA #### [facility] ([address] [place] [address] VIRNEUTROPHILS RELATIVE PERCENT BY AUTOMATED COUNT56.1 %Normal [facility] Medical CenterComment on above:Performed By: #### CBCA #### [facility] ([address] [place] [address] VIRPlatelet mean volume (Bld) [Entitic vol]8.2 fLNormal7-12 [facility] CenterComment on above:Performed By: #### CBCA #### [facility]) [address] [place] [address] [place] [address] VIRPlatelets (Bld) [#/Vol]290 10*3/sFMfwcex178-351RidWhfyal Fremont HospitalComment on above:Performed By: #### CBCA #### [facility] ([facility]) [address] [place] [address] [place] [address] VIRRBC COUNT3.98 X10E12/LNormal3.8-5.2ProMedica Bellflower Medical CenterComment on above:Performed By: #### CBCA #### [facility] ([address] [place] [address] VIRWBC (Bld) [#/Vol]8.7 10*3/uLNormal4-11ProLongview Regional Medical CenterComment on above:Performed By: #### CBCA #### [facility] ([address] [place] [address] VIRCT CHEST WO CONTon [id number] CHEST WO CONTCT CHEST WO CONT CT CHEST WO CONT: 05/21/2025 7:38 PM CLINICAL INDICATION: Shortness of breath, lung nodule on chest x-ray. Technique: Automatic radiation exposure lowering techniques were utilized. A nonenhanced CT of the chest and sagittal and coronal reformats obtained. All CT scans at this facility use dose modulation, iterative reconstruction, and/or weight based dosing when appropriate to reduce radiation dose to as low as reasonably achievable. . Computer aided detection for pulmonary nodules was performed utilizing Viewpost.Housekeep software. FINDINGS: Comparison: Chest x-ray from earlier today. The heart is normal in size. No coronary artery calcifications. No pleural or pericardial effusions. No airspace disease. Nodule projecting over the left lower lobe is in a parasagittal, no suspicious nodules seen in the lungs. Given the lack of intravenous contrast, visualized upper abdomen show no acute abnormalities. Osseous structures reveal no lytic or sclerotic lesions. IMPRESSION: 1. Nodular opacity seen on portable chest is a nipple shadow. . 2. No acute abnormality seen in the chest. Finalized by Alex Chapman MD on 05/21/2025 8:31 PMNormalProLongview Regional Medical CenterD-DIMERon 05-21-2025D DIMER<^050Myxnnm9-506CztNzuphsChillicothe VA Medical Center Comment on above:Result Comment: Results <255 ng/mL DDU: The presensence of a VTE can safely be excluded with a negative D-Dimer result and Wells score. A negative result doesn't exclude the possibility of DIC. The test should be repeated along with other diagnostic tests if the patient's symptoms persist or worsen.Performed By: #### DDMR #### [facility] ([address] [address] VIRMAGNESIUMon 89-01-1094Yibtarehw [Mass/Vol]2.2 mg/dLNormal 1.8-2.6Ch[facility] VA Medical CenterComment on above:Performed By: #### MG #### [facility] ([address] [address] VIRTHYROID PROFILE INCLUDES TSH FT4on [id number] T4 [Mass/Vol]0.67 ng/dLNormal0.61-1.60[facility] VA Medical CenterComment on above: Performed By: #### THYR #### [address] [address] VIRTSH1.15 uIU/mLNormal0.49-4.67[facility] Comment on above:Performed By: #### THYR #### [facility] ([address] [address] VIRTROP I, HIGH SENSITIVITY 1 HOURon [id number] I, HIGH SENSITIVITY<^2Normal<16ProLongview Regional Medical CenterComment on above:Performed By: #### TNIHS1 #### [address] [address] VIRTROPONIN I, HIGH SENSITIVITY 0 HOURon 89-15-2694SHVGJPWO I, HIGH SENSITIVITY<^2Normal<16Ch[facility] VA Medical CenterComment on above: Performed By: #### TNIHS0 #### [facility] ([facility]) [address] [place] [address]. [place] [address] VIRXR CHEST 1 VWon [id number] CHEST 1 VWXR CHEST 1 VW Portable single view chest dated 05/21/2025 at 6:34 PM INDICATION: Shortness of breath, chest pressure. FINDINGS: No comparisons available. No airspace disease or edema. No effusions. Cardiac silhouette is within normal limits. No pneumothorax. There is a 1.7 cm nodule projecting over the left lower lung. IMPRESSION: 1. Compromised due to portable technique. 2. Nodule measuring 1.7 cm projecting over the left lower lung; recommend PA and lateral chest withnipple markers. 3. No edema or effusion. A stat read was provided. Finalized by Alex Chapman MD on 05/21/2025 7:26 PMNormalProLongview Regional Medical CenterCNOVon 28-82-1509SVJZBbcwbf Visit (SPNMED) SYDNIE WATTS ([id number]) 1975 F Date Time Provider Department 12/28/24 10:00 AM [facility] During your visit today, we recorded the following information about you: Pulse Blood pressure Weight 90/minute 118/77 71.7 kg Robyn Manley DO 12/29/2024 11:25 AM Signed [facility] Neck Pain - Chronic (> 12 weeks) Initial Exam SUBJECTIVE HISTORY OF PRESENT ILLNESS: Sydnie Watts is a 49 year old female who presents with a chief complaint of neck pain Started 2-3 years ago and worsening. Upper neck and into head. Midline and left. Some shoulder numbness and aching left. Headaches. Left jaw pain. Better: cracking and release at times. Flexaril 30mg hs. Tramadol 100mg ER x 12 years every morning. Worse: driving, sleeping Back pain to the right and down the hip. Chiropractor about 3 months ago. Temporary relief back and neck. Self/ massage. No PT/acupx PMH: Chrons, RA arteritis. Have not tolerated meds for RA due to flare of Chron's. CT neck, believe was at [facility]. MRI of ? Body part. Office based injections shoulder, hip. Smoker: 1ppd vape. PAIN EVALUATION 12/28/2024 0946 12/28/2024 1011 Pain Level: 6 6 Pain Location: Neck Neck Description: Crushing;Pressure;Sore;Stiffness;Throbbing;Tightness Pressure;Sharp;Burning Duration Amount of Time: -- 1 Duration Units: -- Years Frequency: Continuous Continuous Intervention/Comfort measure: Medication;Massage -- Comments: lower back and right thigh -- Litigation: No Workers' Compensation: No YELLOW AND BLUE FLAGS No-Neg Attitude; Back Pain is Disabling No-Avoiding Activity (for Fear of Pain) No-Depression or Anxiety Disorders No-Social Problems No-Substance Use Disorder No-Job Dissatisfaction No-Financial Disincentives Patient Entered Questionnaires 12/28/2024 Spine Questions Pain Location: Lower back Pain Duration: 1 to 5 years Pain over last 6 months: Every day or nearly every day in the past 6 months Symptoms from neck/cervical spine: Yes Employment Status: Working now Involved in law suit/legal claim: No 12/28/2024 Spine Red Flags Any type of cancer: No Unexplained fever: No Bowel or bladder disfunction: No Unintentional weight loss: No Osteoporosis: Yes 12/28/2024 Neck Questionnaires Benzel Modified STELLA Score 18 (No Myelopathy Symptoms) PROMIS Score Percentiles 12/28/2024 Physical Health Physical Function Percentile 10 Sleep Percentile 14 Fatigue Percentile 5 Pain Interference Percentile 2 12/28/2024 PROMIS SOCIAL ROLE SCORE Social Role Satisfaction Percentile 10 12/28/2024 PROMIS Global Health Scale Physical Health Percentile 15 Mental Health Percentile 26* Patient-reported Percentiles provide an indication of how the patient's score ranks in relation to the general population. Higher percentile rankings indicate better function/quality of life. 50th percentile is the average of the general population and indicates half of respondents had a worse score. Depression Screenin12/28/2024 PHQ-9 Score 7 12/28/2024 PHQ-9 Self-harm Question Question 9 Not at all PHQ-9 Self-Harm (Item 9) response options: 0 Not at all 1 Several days 2 More than half the days 3 Nearly every day PHQ-9 Levels: 0-4 No - mild depression 5-9 Mild depression 10-14 Moderate depression 15-19 Moderately severe depression 20-27 Severe depression There is no problem list on file for this patient. No past medical history on file. No past surgical history on file. Social History Tobacco Use Smoking status: Every Day No family history on file. ALLERGIES Allergen Reactions Remicade [Inflixima* Other: See Comments Paralysis x3 days CURRENT MEDICATIONS: nabumetone (RELAFEN) 750 mg tablet Take 1 tablet by mouth every 12 hours. DULoxetine (CYMBALTA) 30 mg capsule Take 30 mg by mouth every morning. (Patient taking differently: Take 30 mg by mouth every morning. 60 mg daily) estradiol (ESTRACE) 1 mg tablet Take 1 mg by mouth once daily. (Patient taking differently: Take 1 mg by mouth once daily. 2 tab daily) LORazepam (ATIVAN) 0.5 mg Take 0.5 mg by mouth once daily. (Patient taking differently: Take 1 mg by mouth once daily.) cyclobenzaprine (FLEXERIL) 10 mg tablet Take 10 mg by mouth daily at bedtime. (Patient taking differently: Take 10 mg by mouth daily at bedtime. 3 tab at bedtime) magnesium oxide 400 mg tablet Take 1 tablet by mouth once daily. PLENVU 140-9-5.2 gram ppks (Patient not taking: Reported on 12/28/2024) predniSONE (DELTASONE) 20 mg tablet Take 20 mg by mouth once daily. (Patient not taking: Reported on 12/28/2024) REVIEW OF SYSTEMS: Review of Systems Constitutional Positive for Fatigue Negative for Fevers, Night Sweats, Weight Gain and Weight Loss Eyes Negative for Change in vison not correc (more content not included)...Normal [facility] Urinalysis Auto, W/O Microscopyon 10-22-2024 Appearance (U)clearProDayMen U.S SystemExternal Poct Urine BilirubinNegative The Jewish HospitalNeutral Space SystemExternal Poct Urine Blood2+[facility] External Poct Urine ColoryellowProOhio Valley HospitalExternal Poct Urine GlucoseNegativeProOhio Valley HospitalExternal Poct Urine KetonesNegative [facility] HospitalExternal Poct Urine Leukocyte EsteraseNegativeMemorial Health System Selby General HospitalExternal Poct Urine NitriteNegativeProOhio Valley HospitalExternal Poct Urine Au3FwiXaugmgOhio Valley HospitalExternal Poct Urine ProteinNegative [facility] HospitalExternal Poct Urine Specific Gravity1.015ProOhio Valley HospitalExternal Poct Urine Urobilinogen0.2PChildren's Hospital of PhiladelphiaAPTTon 36-91-0974lHRU Coag (PPP) [Time]29.4 sBon [facility] HospitalCombronson methodist hospital on above:Effective 08/17/2020: Heparin Therapeutic Range: 64.0 98.0 seconds. Alcoholon 27-82-4755Yafkn Alcohol ConcentrationNot indicatedChildren's Hospital Colorado South CampusComment on above:Performed By: #### ALCOH #### [facility] [address] [place] [address] Luwwnzx [Mass/Vol]mg/dLChildren's Hospital Colorado South CampusComment on above:Performed By: #### ALCOH #### [facility] [address] [facility] [address] FQG W Auto Differential panel (Bld)on 77-31-7797Jwrunysbxkobbr and review of laboratory resultsAbnormVCU Medical CenterHC (RBC) [Mass/Vol]34.9 %33.0 - 37.0 %[facility] Hospitalented neutrophils/100 WBC (Bld)51.4 %[facility] With Platelet and Differentialon 99-55-3051Ezeecsufp (Bld) [#/Vol]0.1 10*3/uLNormal0.0-0.2Bon [facility] HospitalCombronson methodist hospital on above:Performed By: #### CBCWD #### [facility] [address] [address] Hjkcqloxw/100 WBC (Bld)0.8 %NormalBon Secours Mercy HealthComment on above:Performed By: #### CBCWD #### [facility] [address] [place] [address] Rjjzguezhla (Bld) [#/Vol]0.3 10*3/uLNormal0.0-0.7[facility] HealthComment on above:Performed By: #### CBCWD #### [facility] [address] [place] [address] Wbnmrlapovf/100 WBC (Bld)3.3 %NormalBon Secours Georgetown Behavioral HospitalComment on above:Performed By: #### CBCWD #### [facility] [address] [place] [address] Kcdjkjyrokq distribution width (RBC) [Ratio]13.2 %Rvmvdg36.5-14.5[facility] HealthComment on above:Performed By: #### CBCWD #### [facility] [address] [place] [address] Jaqwuyqqtu (Bld) [Volume fraction]37.2 %Xyrqnt34.0-47.0[facility] Behavioral HospitalComment on above:Performed By: #### CBCWD #### [facility] [address] [place] [address] Lrwzdyajal (Bld) [Mass/Vol]13.0 g/oDUanybs66.0-16.0Bon SecBastrop Rehabilitation Hospital HealthComment on above:Performed By: #### CBCWD #### [facility] [address] [place] [address] Hgbziqhkvhl (Bld) [#/Vol]3.7 10*3/uLNormal1.0-4.8[facility] HealthComment on above:Performed By: #### CBCWD #### [facility] [address] [place] [address] Yzxmsbldrij/100 WBC (Bld)38.3 %NormalBon Secours Van [facility] County Hospital HealthComment on above:Performed By: #### CBCWD #### [facility] [address] [place] [address] JOX (RBC) [Entitic mass]31.8 pgCritically high27.0-31.3Bon [facility] HospitalComment on above:Performed By: #### CBCWD #### [facility] [address] [place] [address] EEFG61.9 %Xbjmce07.0-37.0[facility] HospitalComment on above:Performed By: #### CBCWD #### [facility] [address] [place] [address] UBS (RBC) [Entitic vol]91.0 rSYhbbln30.4-94.8Bon [facility] HospitalComment on above:Performed By: #### CBCWD #### [facility] [address] [place] [address] Wmtpyqosu (Bld) [#/Vol]0.6 10*3/uLNormal0.2-0.8Bon [facility] HospitalComment on above:Performed By: #### CBCWD #### [facility] [address] [place] [address] Qekgutzln/100 WBC (Bld)6.0 %NormalBon [facility] HospitalComment on above:Performed By: #### CBCWD #### [facility] [address] [place] [address] Wbyjryxxqus (Bld) [#/Vol]4.9 10*3/uLNormal1.4-6.5Bon [facility] HospitalComment on above:Performed By: #### CBCWD #### [facility] [address] [place] [address] Bhxhlhaelfy/100 WBC (Bld)51.4 %[facility] Comment on above:Performed By: #### CBCWD #### [facility] [address] [place] [address] Qfidnpasa (Bld) [#/Vol]329 10*3/yUJtyoky317-147Qya [facility] HospitalComment on above:Performed By: #### CBCWD #### [facility] [address] [place] [address] NZC (Bld) [#/Vol]4.09 10*6/uLLow4.20-5.40Bon [facility] Comment on above:Performed By: #### CBCWD #### [facility] [address] [place] [address] ORS (Bld) [#/Vol]9.5 10*3/uLNormal4.8-10.8Bon [facility] Comment on above:Performed By: #### CBCWD #### [facility] [address] [place] [address] OS HEAD WO CONTRASTon 47-01-0280LS HEAD WO CONTRASTEXAMINATION: CT OF THE HEAD WITHOUT CONTRAST 09/19/2024 [...] Signed by: Amy Hays MD 09/19/24 Final resultNoDenver Health Medical CenterCT Head WO contraston 09-19-2024 No acute intracranial abnormality. [facility] [place] RADIOLOGYEXAMINATION: CT OF THE HEAD WITHOUT CONTRAST 09/19/2024 [...] of the visualized skull or soft tissues. Amy Magdaleno MD - 09/19/2024 EXAMINATION: CT OF THE [...] soft tissues. IMPRESSION: No acute intracranial abnormality. [facility] Health SystemCTA HEAD W WO CONTRASTon 25-60-5063PHS HEAD W WO CONTRASTEXAMINATION: CTA OF THE HEAD WITHOUT AND WITH [...] Signed by: Debra Hunter MD 09/19/24 Final resultNoDenver Health Medical CenterCTA Head vessels WO and W contrast Mary . No acute intracranial abnormality. 2. Unremarkable CTA of the head. [facility] MINDY RADIOLOGYEXAMINATION: CTA OF THE HEAD WITHOUT AND WITH [...] venous sinus thrombosis on this non-dedicated study. [facility]OSPITALDebra Louis MD - 09/19/2024 EXAMINATION: CTA OF THE [...] abnormality. 2. Unremarkable CTA of the head. [facility] HospitalCT Head vessels WO and W contrast IVOrdered By: Debra Hunter on [id number] [facility] Work Phone: CTA NECK W WO CONTRASTon 10-56-4045IWY NECK W WO CONTRASTEXAMINATION: CTA OF THE NECK 09/19/2024 1:06 am [...] Signed by: Debra Hunter MD 09/19/24 Final resultNormalSoutheast Colorado HospitalCT Neck vessels WO and W contrast Mary 73-92-5908Xbgpacvlhido CTA of the neck. [facility] MINDY RADIOLOGYEXAMINATION: CTA OF THE NECK 09/19/2024 1:06 am [...] thyroid glands. BONES: No acute osseous abnormality. [facility] Debra Resendiz MD - 09/19/2024 EXAMINATION: CTA OF THE [...] abnormality. IMPRESSION: Unremarkable CTA of the neck. Bon [facility] Medical CenterComprehensive Metabolic Panelon 79-60-5782Blqoz gap [Moles/Vol]12 mmol/LNormal9-15[facility] Comment on above:Performed By: #### CMP #### [facility] [address] [place] [address] Umdmrtb [Mass/Vol]4.5 g/dLNormal3.5-4.6MConejos County Hospital Comment on above:Performed By: #### CMP #### [facility] [address] [place] [address] JSD [Catalytic activity/Vol]100 U/HDvetck62-356TmofxSoutheast Colorado HospitalComment on above:Performed By: #### CMP #### [facility] [address] [place] [address] ZVG [Catalytic activity/Vol]31 U/LNormal0-33[facility] HospitalComment on above:Performed By: #### CMP #### [facility] [address] [place] [address] AMU [Catalytic activity/Vol]25 U/LNormal0-35[facility] HospitalComment on above:Performed By: #### CMP #### [facility] [address] [place] [address] Pxbknxsqk [Mass/Vol]mg/dLNormal0.2-0.7[facility] Comment on above:Performed By: #### CMP #### [facility] [address] [place] [address] Afhrwyn [Mass/Vol]9.3 mg/dLNormal8.5-9.9[facility] HospitalComment on above:Performed By: #### CMP #### [facility] [address] [place] [address] Rtagkxbh [Moles/Vol]99 mmol/RGcrsej36-245DxdwqSoutheast Colorado HospitalComment on above:Performed By: #### CMP #### [facility] [address] [place] [address] FA5 [Moles/Vol]26 mmol/ENcpprk12-07UcwriSoutheast Colorado Hospital Comment on above:Performed By: #### CMP #### [facility] [address] [place] [address] Czkodhyhow [Mass/Vol]0.88 mg/dLNormal0.50-0.90[facility] HospitalComment on above:Performed By: #### CMP #### [facility] [address] [place] [address] DSQ07.5Normal>60S[facility] HospitalComment on above:Result Comment: Pediatric calculator link https://www.kidney.org/professionals/kdoqi/gfr_calculatorped Effective Jul 16, [...] or following therapy that affects renal tubular secretion.Performed By: #### CMP #### [facility] [address] [place] [address] Eerzydby (S) [Mass/Vol]2.6 g/dLNormal2.3-3.5[facility] HospitalComment on above:Performed By: #### CMP #### [facility] [address] [place] [address] Ecdokdh [Mass/Vol]96 mg/aANxddkj73-18YzipcConejos County Hospital Comment on above:Performed By: #### CMP #### [facility] [address] [place] [address] Ozikqvwmd [Moles/Vol]3.6 mmol/LNormal3.4-4.9[facility] HospitalComment on above:Performed By: #### CMP #### [facility] [address] [place] [address] Vrviikp [Mass/Vol]7.1 g/dLNormal6.3-8.0[facility] Comment on above:Performed By: #### CMP #### [facility] [address] [place] [address] Mkcjrz [Moles/Vol]137 mmol/TMkixhh166-219LrljrSoutheast Colorado HospitalComment on above:Performed By: #### CMP #### [facility] [address] [place] [address] Rgkp nitrogen [Mass/Vol]14 mg/dLNormal6-20[facility] HospitalComment on above:Performed By: #### CMP #### [facility] [address] [place] [address] Dzuktzwhpvqsi metabolic 2000 panelon 12-94-5193Renyngw [Mass/Vol]4.5 g/dL3.5 - 4.6 g/dLBon Secours Mercy HealthALP [Catalytic activity/Vol]100 U/L40 - 130 U/LBon Secours Mercy HealthALT [Catalytic activity/Vol]31 U/L0 - 33 U/LBon Secours Mercy HealthAnion gap [Moles/Vol]12 mmol/LBon Secours Mercy HealthAST [Catalytic activity/Vol]25 U/L0 - 35 U/LBon Secours Mercy HealthBilirubin [Mass/Vol]mg/dL0.2 - 0.7 mg/dLBon Secours Mercy HealthCalcium [Mass/Vol]9.3 mg/dL8.5 - 9.9 mg/dLBon Secours Mercy HealthChloride [Moles/Vol]99 mmol/LBon Secours Mercy HealthCO2 [Moles/Vol]26 mmol/LBon Secours Mercy HealthCreatinine [Mass/Vol]0.88 mg/dL0.50 - 0.90 mg/dLBon Secours Mercy HealthGFR/1.73 sq M.predicted among non-blacks MDRD (S/P/Bld) [Vol rate/Area]81.5 mL/min/{1.73_m2} 60 - PINFBon Secours Mercy HealthComment on above:Pediatric calculator link https://www.kidney.org/professionals/kdoqi/gfr_calculatorped Effective Jul 16, 2022 [...] that affects renal tubular secretion. Globulin (S) [Mass/Vol]2.6 g/dL2.3 - 3.5 g/dLBon [facility] HospitalGlucose [Mass/Vol]96 mg/dL70 - 99 mg/dLBon [facility] HospitalPotassium [Moles/Vol]3.6 mmol/LBon [facility] HospitalProtein [Mass/Vol]7.1 g/dL6.3 - 8.0 g/dLBon [facility] HospitalSodium [Moles/Vol]137 mmol/LBon [facility] HospitalUrea nitrogen [Mass/Vol]14 mg/dL6 - 20 mg/dLBon [facility] Medical CenterEthanolon 03-58-4262Yjlqlht percentNot indicatedG/dLBon [facility] HospitalEthanolamine [Mass/Vol]<10mg/dLBon [facility] Medical CenterHigh Sensitivity Troponin Ton 29-94-7204Thze Sensitivity Troponin T<6 Normal0-19[facility] HospitalComment on above:Result Comment: High Sensitivity Troponin values cannot be compared with other Troponin methodologies.Performed By: #### TRP5 #### [facility] [address] [facility] [address] [facility] [address] Bicwocipcbw 41-58-6366Ueigeqfla [Mass/Vol]2.4 mg/dL1.7 - 2.4 mg/dL [facility] HospitalMagnesium [Mass/Vol]2.4 mg/dLNormal1.7-2.4[facility] HospitalComment on above:Performed By: #### MG #### [facility] [address] [facility] [address] Ysgmzvlcc [Mass/Vol]on 45-20-0787Eds [facility] HospitalNo Panel Informationon 50-57-8466Zibkbgtxb Study observation (narrative)[facility] SystemPOCT GlucoseOrdered By: Manuel March on 11-27-3193Jzckddvtpgvsxm and review of laboratory resultsNormalUVA Health University Hospital [place]?okay to wait for [facility] CenterPartial Thromboplastin Timeon 76-14-8261kKEW Coag (Bld) [Time]29.4 sNormal 24.4-36.8[facility] HospitalComment on above:Result Comment: Effective 08/17/2020: Heparin Therapeutic Range: 64.0 ? 98.0 seconds.Performed By: #### PTT #### [facility] [address] [place] [address] Bqxqmfha XR Chest AP single viewon 74-72-7606Jj acute process. ANAYELI GUILLEN RADIOLOGYEXAMINATION: ONE XRAY VIEW OF THE CHEST 09/19/2024 12:23 am COMPARISON: None. HISTORY: ORDERING SYSTEM PROVIDED HISTORY: Stroke TECHNOLOGIST PROVIDED HISTORY: Reason for exam:->Stroke What reading provider will be dictating this exam?->CRC FINDINGS: The lungs are without acute focal process. There is no effusion or pneumothorax. The cardiomediastinal silhouette is without acute process. The osseous structures are without acute process. Amy Renner MD - 09/19/2024 EXAMINATION: ONE XRAY VIEW [...] without acute process. IMPRESSION: No acute process. [facility] HospitalRadiology Study observation (narrative)[facility] HealthPortable XR Chest AP single viewOrdered By: Amy Hays on 09-19-2024 [facility] Work Phone: Prothrombin Timeon 99-96-7163ZYL Coag (PPP) [Relative time]1.0 {INR}NormalSoutheast Colorado HospitalComment on above:Performed By: #### PT #### [facility] [address] [place] [address] SB Coag (PPP) [Time]13.0 oVufjfv26.3-14.9[facility] HospitalComment on above:Performed By: #### PT #### [facility] [address] [place] [address] Cnmzoaf-INRon 75-73-1445UKV Coag (PPP) [Relative time]1.0 {INR}Banner PolisofiaPT Coag (PPP) [Time]13.0 sBon [facility] CenterHamstersoftTroponinon 50-43-5933Cwlwfshx, High Sensitivityng/L0 - 19 ng/LBon [facility] CenterHamstersoft Comment on above:High Sensitivity Troponin values cannot be compared with other Troponin methodologies. BangbiteXR CHEST PORTABLEon 82-39-9647MS CHEST PORTABLE EXAMINATION: ONE XRAY VIEW OF [...] Signed by: Amy Hays MD 09/19/24 Final resultNormMiddle Park Medical CenterAlanine aminotransferase [Enzymatic activity/volume] in Serum or PlasmaOrdered By: Moraima Samson on 82-28-8773JWM [Catalytic activity/Vol]Alanine aminotransferase [Enzymatic activity/volume] in Serum or PlasmaDayton Osteopathic HospitalAlbumin [Mass/volume] in Serum or Plasma by Bromocresol green (BCG) dye binding metho Ordered By: Moraima Samson on 27-36-7929Lyfebdt BCG dye [Mass/Vol]Albumin [Mass/volume] in Serum or Plasma by Bromocresol green (BCG) dye binding metho 3.5-5.7FMagruder HospitalAlkaline phosphatase [Enzymatic activity/volume] in Serum or PlasmaOrdered By: Moraima Samson on 68-09-8802ERY [Catalytic activity/Vol]Alkaline phosphatase [Enzymatic activity/volume] in Serum or Fnqmee81-220ZqlosdpscDayton Osteopathic HospitalAspartate aminotransferase [Enzymatic activity/volume] in Serum or PlasmaOrdered By: Moraima Samson on 83-04-0108SPK [Catalytic activity/Vol]Aspartate aminotransferase [Enzymatic activity/volume] in Serum or Dvmxed40-76KqqmystubDayton Osteopathic Hospital Basophils Auto (Bld) [#/Vol]Ordered By: Moraima Samson on 27-36-8673Eqedrvrwa (Bld) [#/Vol]Automated basophil count0.0-0.2FMagruder Hospital Basophils/100 WBC Auto (Bld)Ordered By: Moraima Samson on 08-26-2024 Basophils/100 WBC (Bld)Automated basophil %.[facility] Bilirubin.total [Mass/volume] in Serum or PlasmaOrdered By: Moraima Samson on 44-71-3467Awfibggff [Mass/Vol]Bilirubin.total [Mass/volume] in Serum or Plasma 0.3-1.0Day[facility] Osteopathic HospitalCalcium [Mass/volume] in Serum or Plasma Ordered By: Moraima Samson on 40-87-5745Vxkusqs [Mass/Vol]Calcium [Mass/volume] in Serum or Plasma8.6-10.3FMagruder HospitalCarbon dioxide, total [Moles/volume] in Serum or PlasmaOrdered By: Moraima Samson on 06-54-1083CZ4 [Moles/Vol]Carbon dioxide, total [Moles/volume] in Serum or Zumpnz77.0-31.0 [facility] HospitalChloride [Moles/volume] in Serum or Plasma Ordered By: Moraima Samson on 66-64-2295Yvxdfsrw [Moles/Vol]Chloride [Moles/volume] in Serum or Xxpwps76-494MhjnzcvmfDayton Osteopathic HospitalComplete Blood Count Auto Diffon 20-99-8780Dqerilmdw (Bld) [#/Vol]0.1 10*3/uLNormal 0.0-0.2The [facility] Physician GroupComment on above:Result Comment: PERFORMED BY: [place] [address] PATHOLOGIST MANAGER OF LEARNING TAE CASEY M.D.Performed By: #### CBC, CMP #### [place] [address] USABasophils/100 WBC (Bld)0.9 %Normal.The [facility] Physician GroupComment on above:Performed By: #### CBC, CMP #### [place] [address] USAEosinophils (Bld) [#/Vol]0.4 10*3/uLNormal0.0-0.45The [facility] Physician GroupComment on above:Performed By: #### CBC, CMP #### [place] [address] USAEosinophils/100 WBC (Bld)4.2 %Normal.The [facility] Physician GroupComment on above:Performed By: #### CBC, CMP #### [place] [address] USAErythrocyte distribution width (RBC) [Ratio]13.4 %Normal 11.9-15.3The [facility] Physician GroupComment on above:Performed By: #### CBC, CMP #### [place] [address] USAHematocrit (Bld) [Volume fraction]39.9 %Ksvzah81.0-46.4The [facility] Physician GroupComment on above:Performed By: #### CBC, CMP #### [place] [address] USAHemoglobin (Bld) [Mass/Vol]14.0 g/aFGfbhnh54.8-15.4The [facility] Physician GroupComment on above:Performed By: #### CBC, CMP #### [address] [place] [address] USALymphocytes (Bld) [#/Vol]2.9 10*3/uLNormal1.00-4.8The [facility] Physician GroupComment on above:Performed By: #### CBC, CMP #### [place] [address] USALymphocytes/100 WBC (Bld)29.9 %Normal.The [facility] Physician GroupComment on above:Performed By: #### CBC, CMP #### [place] [address] USAMCH (RBC) [Entitic mass]31.8 soTjikvg82.7-34.3The [facility] Physician GroupComment on above:Performed By: #### CBC, CMP #### [place] [address] USAMCV (RBC) [Entitic vol]90.7 uLQseyka46-306Tuk [facility] Physician GroupComment on above:Performed By: #### CBC, CMP #### [place] [address] USAMean Corpuscular HGB Conc35.0 g/bHVpnqut67.0-35.0The [facility] Physician GroupComment on above:Performed By: #### CBC, CMP #### [place] [address] USAMonocytes (Bld) [#/Vol]0.4 10*3/uLNormal0.0-0.8The [facility] Physician GroupComment on above:Performed By: #### CBC, CMP #### [place] [address] USAMonocytes/100 WBC (Bld)3.9 %Normal.The [facility] Physician GroupComment on above:Performed By: #### CBC, CMP #### [place] [address] USANeutrophils (Bld) [#/Vol]5.9 10*3/uLNormal1.8-7.7The [facility] Physician GroupComment on above:Performed By: #### CBC, CMP #### [place] [address] USANeutrophils/100 WBC (Bld)61.1 %Normal.The [facility] Physician GroupComment on above:Performed By: #### CBC, CMP #### [place] [address] USANRBC%0.1 /100{WBC}Normal0-0.5The [facility] Comment on above:Performed By: #### CBC, CMP #### [place] [address] USAPlatelet mean volume (Bld) [Entitic vol]7.8 fLNormal 6.3-10.7The [facility] Physician GroupComment on above:Performed By: #### CBC, CMP #### [place] [address] USAPlatelets (Bld) [#/Vol]319 10*3/nXHdxfbp948-480Frp [facility] Physician GroupComment on above:Performed By: #### CBC, CMP #### [place] [address] USARBC (Bld) [#/Vol]4.39 10*6/uLNormal3.60-5.00The [facility] Physician GroupComment on above:Performed By: #### CBC, CMP #### [place] [address] USAWBC (Bld) [#/Vol]9.6 10*3/uLNormal3.8-11.6The [facility] Physician GroupComment on above:Performed By: #### CBC, CMP #### [place] [address] USAComprehensive Metabolic Panelon 51-22-0334Psrtiru [Mass/Vol]4.6 g/dLNormal3.5-5.7The [facility] Physician GroupComment on above: Performed By: #### CBC, CMP #### [place] [address] USAAlbumin/Globulin [Mass ratio]1.8 {ratio}NormalThe [facility] Physician GroupComment on above:Performed By: #### CBC, CMP #### [facility] [address] [place] [address] USAALP [Catalytic activity/Vol]96 U/UIbwpdl32-073Kis [facility] Physician GroupComment on above:Result Comment: PERFORMED BY: [place] [address] PATHOLOGIST MANAGER OF LEARNING TAE CASEY M.D.Performed By: #### CBC, CMP #### [place] [address] USAALT [Catalytic activity/Vol]23 U/LNormal7-52The [facility] Physician GroupComment on above:Performed By: #### CBC, CMP #### [place] [address] USAAnion gap [Moles/Vol]10.9 mmol/LNormal6.0-15.0The [facility] Physician GroupComment on above:Performed By: #### CBC, CMP #### [facility] [address] [place] [address] USAAST [Catalytic activity/Vol]21 U/MFzvnfz00-56Sgd [facility] Physician GroupComment on above:Performed By: #### CBC, CMP #### [place] [address] USABilirubin [Mass/Vol]0.4 mg/dLNormal0.3-1.0The [facility] Physician GroupComment on above:Performed By: #### CBC, CMP #### [place] [address] USACalcium [Mass/Vol]9.6 mg/dLNormal8.6-10.3The [facility] Physician GroupComment on above:Performed By: #### CBC, CMP #### [place] [address] USAChloride [Moles/Vol]102 mmol/PGnohiv69-376Slq [facility] Physician GroupComment on above:Performed By: #### CBC, CMP #### [address] [place] [address] USACO2 [Moles/Vol]30.0 mmol/HKialtn11.0-31.0The [facility] Physician GroupComment on above:Performed By: #### CBC, CMP #### [facility] [address] [place] [address] USACreatinine [Mass/Vol]0.88 mg/dLNormal0.60-1.20The [facility] Physician GroupComment on above:Performed By: #### CBC, CMP #### [facility] [address] [place] [address] USAGFR/1.73 sq M.predicted MDRD (S/P/Bld) [Vol rate/Area] mL/min/{1.73_m2}NormalThe [facility] Physician GroupComment on above:Performed By: #### CBC, CMP #### [place] [address] USAGlobulin (S) [Mass/Vol]2.6 g/dLNormalThe [facility] Physician GroupComment on above:Performed By: #### CBC, CMP #### [place] [address] USAGlucose [Mass/Vol]79 mg/cMMupwdk31-252Gmz [facility] Physician GroupComment on above:Result Comment: Random Glucose Reference Range is dependent on time and content of last meal. Glucose of more than 200 mg/dL in a nonstressed, ambulatory subject supports the diagnosis of Diabetes Mellitus. ADA recommended reference rangePerformed By: #### CBC, CMP #### [facility] [address] [place] [address] USAPotassium [Moles/Vol]3.9 mmol/LNormal3.5-5.1The [facility] Physician GroupComment on above:Performed By: #### CBC, CMP #### [facility] [address] [place] [address] USAProtein [Mass/Vol]7.2 g/dLNormal6.4-8.9The [facility] Physician GroupComment on above:Performed By: #### CBC, CMP #### [address] [place] [address] USASodium [Moles/Vol]139 mmol/ZEyghqy650-863Hnb [facility] Physician GroupComment on above:Performed By: #### CBC, CMP #### [facility] [address] [place] [address] USAUrea nitrogen [Mass/Vol]16 mg/dLNormal7-25The [facility] Physician GroupComment on above:Performed By: #### CBC, CMP #### [facility] [address] [place] [address] USACreatinine [Mass/volume] in Serum or PlasmaOrdered By: Moraima Samson on 00-08-7352Okpfogztrc [Mass/Vol]Creatinine [Mass/volume] in Serum or Plasma0.60-1.20Day[facility] Osteopathic HospitalEosinophils Auto (Bld) [#/Vol]Ordered By: Moraima Samson on 12-98-7184Ghdiuygcslc (Bld) [#/Vol] Automated eosinophil count0.0-0.45[facility] Eosinophils/100 WBC Auto (Bld)Ordered By: Moraima Samson on 08-26-2024 Eosinophils/100 WBC (Bld)Automated eosinophil %.[facility]opathic HospitalErythrocyte distribution width Auto (RBC) [Ratio]Ordered By: Moraima Samson on 98-42-8333Mkhirpdbgdu distribution width (RBC) [Ratio]Erythrocyte distribution width [Ratio] by Automated count11.9-15.3FMagruder HospitalGlobulin Calc (S) [Mass/Vol]Ordered By: Moraima Samson on 08-26-2024 Globulin (S) [Mass/Vol]Serum globulin measurement by calculation (mass/volume) [facility] HospitalGlucose [Mass/volume] in Serum or PlasmaOrdered By: Moraima Samson on 11-55-8432Ptalqzi [Mass/Vol]Glucose [Mass/volume] in Serum or Ydajiz59-771PbvfieuiaDayton Osteopathic HospitalComment on above:ADA recommended reference rangeRandom Glucose Reference Range is dependent on time and content of last meal. Glucose of more than 200 mg/dL in a nonstressed, ambulatory subject supports the diagnosisof Diabetes Mellitus.Hematocrit Auto (Bld) [Volume fraction]Ordered By: Moraima Samson on 13-69-9835Mgtzkpimaa (Bld) [Volume fraction]Hematocrit [Volume Fraction] of Blood by Automated count 34.0-46.4FMagruder HospitalHemoglobin [Mass/volume] in Blood Ordered By: Moraima Samson on 47-41-9677Nidcoayyda (Bld) [Mass/Vol]Hemoglobin [Mass/volume] in Blood11.8-15.4FMagruder HospitalLeukocytes [#/volume] corrected for nucleated erythrocytes in Blood by Automated coun Ordered By: Moraima Samson on 62-29-3821HJO corrected for nucl RBC Auto (Bld) [#/Vol]Leukocytes [#/volume] corrected for nucleated erythrocytes in Blood by Automated coun3.8-11.6FMagruder HospitalLymphocytes Auto (Bld) [#/Vol]Ordered By: Moraima Samson on 64-51-4762Evlafumuybp (Bld) [#/Vol] Lymphocytes [#/volume] in Blood by Automated count1.00-4.8[facility] Osteopathic HospitalLymphocytes/100 WBC Auto (Bld)Ordered By: Moraima Samson on 33-90-4232Hpcltadesny/100 WBC (Bld)Lymphocytes/100 leukocytes in Blood by Automated count.[facility]opathic HospitalMCH Auto (RBC) [Entitic mass] Ordered By: Moraima Samson on 11-76-7675RES (RBC) [Entitic mass]MCH [Entitic mass] by Automated count24.7-34.3FMagruder HospitalMCHC Auto (RBC) [Mass/Vol]Ordered By: Moraima Samson on 10-50-0276IIWA (RBC) [Mass/Vol] MCHC [Mass/volume] by Automated count32.0-35.0[facility] MCV Auto (RBC) [Entitic vol]Ordered By: Moraima Samson on 24-12-0605QNV (RBC) [Entitic vol]MCV [Entitic volume] by Automated -053UdoqdxwiqDayton Osteopathic HospitalMonocytes Auto (Bld) [#/Vol]Ordered By: Moraima Samson on 76-34-7040Vngateepv (Bld) [#/Vol]Automated blood monocyte count0.0-0.8[facility]opathic HospitalMonocytes/100 WBC Auto (Bld)Ordered By: Moraima Samson on 37-08-7033Urqohmtbc/100 WBC (Bld)Automated monocyte %.[facility] HospitalNeutrophils Auto (Bld) [#/Vol]Ordered By: Moraima Samson on 02-28-0559Ftozknebtux (Bld) [#/Vol]Neutrophils [#/volume] in Blood by Automated count1.8-7.7FMagruder HospitalNeutrophils/100 WBC Auto (Bld) Ordered By: Moraima Samson on 19-63-4841Dqbgsrnnxjf/100 WBC (Bld)Automated neutrophil %.[facility] HospitalNo Panel InformationOrdered By: Moraima Samson on 18-30-3749Rjjihrcxx GFR (CKD-EPI)> 60.0 mL/MinDayton Osteopathic HospitalPharmacy Creatinine Clearance (ChemN/[facility] HospitalNucleated erythrocytes [Presence] in Blood by Automated count Ordered By: Moraima Samson on 04-18-1725Glddgntoj RBC Auto Ql (Bld)Nucleated erythrocytes [Presence] in Blood by Automated count0-0.5FMagruder HospitalPlatelet mean volume Auto (Bld) [Entitic vol]Ordered By: Moraima Samson on 54-70-9470Iuxhymgt mean volume (Bld) [Entitic vol]Platelet mean volume [Entitic volume] in Blood by Automated count6.3-10.7FMagruder HospitalPlatelets Auto (Bld) [#/Vol]Ordered By: Moraima Samson on 19-62-5942Dsbqhtfat (Bld) [#/Vol]Platelets [#/volume] in Blood by Automated zpvnu081-093GglvgvgtaDayton Osteopathic HospitalPotassium [Moles/volume] in Serum or PlasmaOrdered By: Moraima Samson on 91-54-4164Tcoucetvt [Moles/Vol]Potassium [Moles/volume] in Serum or Plasma3.5-5.1FMagruder HospitalProtein [Mass/volume] in Serum or PlasmaOrdered By: Moraima Samson on 16-67-8860Zefwrrm [Mass/Vol]Protein [Mass/volume] in Serum or Plasma6.4-8.9[facility]opathic HospitalRBC Auto (Bld) [#/Vol]Ordered By: Moraima Samson on 08-76-5121ODA (Bld) [#/Vol]Erythrocytes [#/volume] in Blood by Automated count3.60-5.00 [facility] Centererum or plasma albumin/globulin mass ratio Ordered By: Moraima Samson on 16-38-7918Ohzboho/Globulin [Mass ratio]Serum or plasma albumin/globulin mass ratioCincinnati VA Medical Centererum or plasma anion gap determinationOrdered By: Moraima Samson on 15-14-8484Ktijr gap [Moles/Vol]Serum or plasma anion gap determination6.0-15.0[facility] Centerodium [Moles/volume] in Serum or PlasmaOrdered By: Moraima Samson on 65-24-3030Kvwfqw [Moles/Vol]Sodium [Moles/volume] in Serum or Sgmsop654-588 [facility] HospitalUrea nitrogen [Mass/volume] in Serum or Plasma Ordered By: Moraima Samson on 23-97-0095Auut nitrogen [Mass/Vol]Urea nitrogen [Mass/volume] in Serum or Plasma7-25[facility]opathic HospitalWBC Auto (Bld) [#/Vol]Ordered By: Moraima Samson on 44-35-9202QMI (Bld) [#/Vol]Leukocytes [#/volume] in Blood by Automated count3.8-11.6FMagruder Hospital X-ray reportOrdered By: Oswaldo Riddle on 59-97-0263Qdzcg reportCINCINNATI [facility] [place] [address] XRay Report Signed Patient: Sydnie Watts MR#: [id number] : 1975 Acct:[id number] Age/Sex: 49 / F ADM Date: 4 Loc: XD Room: Type: [facility] CLI Attending Dr: Moraima VEGA Copies to: GARY Kee~ Ordering Provider: [...] Oswaldo Riddle M.D.08/26/2024 4:52 PM Dictation Location: [place] [address] Transcribed By: [facility] 08/26/241651 Dictated By: Oswaldo Riddle II, MD 08/26/241650 Signed By: 08/26/241651 [facility] Work Phone: Study reportCINCINNATI [facility] [place] [address] [place] [address] XRay Report Signed Patient: Sydnie Watts MR#: [id number] : 1975 Acct:[id number] Age/Sex: 49 / F ADM Date: 4 Loc: XD Room: Type: [facility] Attending Dr: Moraima ARMASC Copies to: GARY Kee~ Ordering Provider: GARY [...] Oswaldo Riddle M.D.08/26/2024 4:51 PM Dictation Location: [place] [address] Transcribed By: [facility] 08/26/241650 Dictated By: Oswaldo Riddle II, MD 08/26/241646 Signed By: 08/26/241650 [facility] Work Phone: XR hip RT min 2V(w/wo pelvis)*on 27-32-5704NL hip RT min 2V(w/wo pelvis)*[facility] [place] [address] XRay Report Signed Patient: Sydnie Watst MR#: [id number] : 1975 Acct:[id number] Age/Sex: 49 / F ADM Date: 08/26/24 Loc: XD Room: Type: [facility] Attending Dr: Moraima VEGA Copies to: GARY Kee Ordering Provider: [...] Oswaldo Riddle M.D.08/26/2024 4:51 PM Dictation Location: [facility]-24 Transcribed By: ALLISON 08/26/24 165 Dictated By: Oswaldo Riddle II, MD 08/26/24 1647 Signed By: 08/26/24 1651[facility] Physician GroupXR lumbar spine min 4V*on 02-11-7340KU lumbar spine min 4V*[facility] [place] [address] [place] [address] XRay Report Signed Patient: Sydnie Watts MR#: [id number] : 1975 Acct:[id number] Age/Sex: 49 / F ADM Date: 08/26/24 Loc: XD Room: Type: [facility] Attending Dr: Moraima VEGA Copies to: GARY Kee Ordering Provider: [...] Oswaldo Riddle M.D.08/26/2024 4:52 PM Dictation Location: [facility]- Transcribed By: ALLISON 08/26/24 1652 Dictated By: Oswaldo Riddle II, MD 08/26/241650 Signed By: 08/26/24 1652[facility] Physician GroupQUANTIFERON TB GOLD PLUSon 34-19-7013WxjqlyZCYVA CriteriaCommentTriHealth McCullough-Hyde Memorial HospitalCombronson methodist hospital on above:Result Comment: QuantiFERON-TB Gold Plus is a qualitative indirect test for M tuberculosis infection (including disease) and is intended for use in conjunction with risk assessment, radiography, and other medical and diagnostic evaluations. The QuantiFERON-TB Gold Plus result is determined by subtracting the Nil value from either TB antigen (Ag) value. The Mitogen tube serves as a control for the test.Performed By: #### QNTTB #### [facility] [address] [place] [address] Dr. Kavya Stroud IncubationIncubation performed.NormalThe Metrohealth SystemComment on above:Performed By: #### QNTTB #### [facility] [address] [place] [address] Dr. Kavya Stroud Mitogen Value>10.00NoCleveland Clinic Marymount HospitalComment on above:Performed By: #### QNTTB #### [facility] [address] [place] [address] Dr. Kavya Stroud Nil Value0.02 IU/mLNSheltering Arms HospitalComment on above:Performed By: #### QNTTB #### [facility] [address] [place] [address] Dr. Kavya Stroud TB1 Ag Value0.05 IU/mLNSheltering Arms Hospital Comment on above:Performed By: #### QNTTB #### [facility] [address] [place] [address] Dr. Kavya Stroud TB2 Ag Value0.07 IU/mLNSheltering Arms Hospital Comment on above:Performed By: #### QNTTB #### [facility] [address] [place] [address] Dr. Kavya Stroud-TB Gold PlusNegativeNormalNegativeThe Metrohealth SystemCombronson methodist hospital on above:Result Comment: No response to M tuberculosis antigens detected. Infection with M tuberculosis is unlikely, but high risk individuals should be considered for additional testing (ATS/IDSA/CDC Clinical Practice Guidelines, 2017). The reference range is an Antigen minus Nil result of <0.35 IU/mL. Chemiluminescence immunoassay methodologyPerformed By: #### QNTTB #### [facility] [address] [place] [address] Dr. Kavya Gamino B SURFACE ANTIBODY, QUANTon 02-83-5342Dskbdukng B Surf AB Quant>1000.0NormalImmunity>9.9The [facility] Methodist Hospitalment on above:Result Comment: Status of Immunity Anti-HBs Level Inconsistent with Immunity 0.0 - 9.9 Consistent with Immunity >9.9Performed By: #### HEPBSRF #### [place] [address] Dr. Kavya Pichardo IMMUNITYon 18-39-0828Bdvgt Abs, BdO883.0 AU/mLNormalImmune >10.9The [facility] SystemComment on above:Result Comment: Negative <9.0 Equivocal 9.0 - 10.9 Positive >10.9 A positive result generally indicates past exposure to Mumps virus or previous vaccination.Performed By: #### MMRIMMU #### [facility] [address] [place] [address] Dr. Kavya Pablo Antibodies, IgG7.28 indexNormalImmune >0.99The [facility] SystemComment on above:Result Comment: Non-immune <0.90 Equivocal 0.90 - 0.99 Immune >0.99Performed By: #### MMRIMMU #### [facility] [address] [place] [address] Dr. Kavya Betts Ab, IgG66.8 AU/mLNormalImmune >16.4The [facility] Comment on above:Result Comment: Negative <13.5 Equivocal 13.5 - 16.4 Positive >16.4 Presence of antibodies to Rubeola is presumptive evidence of immunity except when acute infection is suspected.Performed By: #### MMRIMMU #### [facility] [address] [place] [address] Dr. Kavya TorresVARICELLA IGG ABon 56-38-3861Nwrwitzqv Zoster CpU995 indexNormal Immune >165The Metrohealth SystemComment on above:Result Comment: Negative <135 Equivocal 135 - 165 Positive >165 A positive result generally indicates exposure to the pathogen or administration of specific immunoglobulins, but it is not indication of active infection or stage of disease.Performed By: #### VARCEL #### [facility] [address] [place] [address] [address] Kavya TorresCT ABD/PELVIS WO CONon 17-74-9675VM ABD/PELVIS WO CONEXAMINATION: CT ABD/PELVIS WO CON, 10/17/2022 9:35 PM [...] Electronically authenticated by: Damien JEROME Date: 2022-10-17 22:54NoCleveland Clinic Marymount HospitalXR HIP LT 2 3V W PELVISon 31-25-1263PX HIP LT 2 3V W PELVIS EXAM: [...] Electronically authenticated by: HONORIO JASSO Date: 2022-10-17 23:39NormMemorial Hospital AUTO DIFFon 38-03-7071BQLQ #0.1 103/ulNormal0.0-0.1The Metrohealth SystemComment on above:Performed By: #### CBC #### [facility] [address] [place] [address] [address] Kavya TorresBasophils/100 WBC (Bld)0.8 %Normal0.2-2.0The [facility] Comment on above:Performed By: #### CBC #### [facility] [address] [place] [address] [address] Kavya Sewell #0.3 103/ulNormal0.0-0.7The [facility] SystemComment on above: Performed By: #### CBC #### [facility] [address] [place] [address] [address] Kavya Frostosinophils/100 WBC (Bld)4.0 %Normal0.9-7.0[facility] Comment on above:Performed By: #### CBC #### [facility] [address] [place] [address] Dr. Kavya Frostrythrocyte distribution width (RBC) [Ratio]13.0 %Eiyiut41.0-15.0 The Metrohealth SystemComment on above:Performed By: #### CBC #### [facility] [address] [place] [address] Dr. Kavya TorresHematocrit (Bld) [Volume fraction]35.5 %Critically low36.0-48.0 The [facility] SystemComment on above:Performed By: #### CBC #### [facility] [address] [place] [address] Dr. Kavya TorresHemoglobin (Bld) [Mass/Vol]12.1 g/wDYfdfnk94.0-16.0The [facility] SystemComment on above:Performed By: #### CBC #### [facility] [address] [place] [address] Dr. Kavya Lau #0.01 10e3/ulNormal0.00-0.03The [facility] SystemComment on above:Performed By: #### CBC #### [facility] [address] [place] [address] Dr. Kavya Lau %0.1 %Normal0.0-0.5The [facility] SystemComment on above: Performed By: #### CBC #### [facility] [address] [place] [address] Dr. Kavya Bautista #3.2 103/ulNormal1.2-3.8The [facility] SystemComment on above:Performed By: #### CBC #### [facility] [address] [place] [address] Dr. Kavya Madridhocytes/100 WBC (Bld)44.2 %Wafavl07.5-60.0The [facility] on above:Performed By: #### CBC #### [facility] [address] [place] [address] Dr. Kavya MayoUAL DIFF REQNONormalThe [facility] SystemComment on above: Performed By: #### CBC #### [facility] [address] [place] [address] Dr. Kavya Escalona (RBC) [Entitic mass]30.7 xgCetxzr03.7-34.0The [facility] SystemComment on above:Performed By: #### CBC #### [facility] [facility] [address] [place] [address] Dr. Kavya Cronin (RBC) [Mass/Vol]34.1 g/jEXfoglx41.9-35.2The [facility]Com[facility] on above:Performed By: #### CBC #### [facility] [address] [place] [address] Dr. Kavya Cronin (RBC) [Entitic vol]90.1 sSDrgvls20.0-99.0The [facility] SystemComment on above:Performed By: #### CBC #### [facility] [address] [address] [address] Kavya Mora #0.4 103/ulNormal0.3-0.8The [facility] SystemComment on above:Performed By: #### CBC #### [facility] [address] [address] [address] Kavya Ontiverosocytes/100 WBC (Bld)5.4 %Normal1.7-12.0The [facility] Comment on above:Performed By: #### CBC #### [facility] [address] [place] [address] Dr. Kavya Cameron #3.3 103/ulNormal1.4-6.5The [facility] SystemComment on above:Performed By: #### CBC #### [facility] [address] [place] [address] Dr. Kavya Greenfieldutrophils/100 WBC (Bld)45.5 %Dpquri23.0-75.0The [facility] SystemComment on above:Performed By: #### CBC #### [facility] [address] [place] [address] Dr. Kavya Jacklet mean volume (Bld) [Entitic vol]9.0 fLCritically low 9.5-13.5The [facility] SystemComment on above:Performed By: #### CBC #### [facility] [address] [place] [address] Dr. Kavya TorresPLT305 103/dpUnoafl546-716Mtj [facility] SystemComment on above: Performed By: #### CBC #### [facility] [address] [place] [address] Dr. Kavya TorresRBC3.94 106/ulCritically low4.20-5.40The [facility] SystemComment on above:Performed By: #### CBC #### [facility] [address] [place] [address] Dr. Kavya TorresWBC7.2 103/ulNormal4.0-11.0The [facility] SystemComment on above: Performed By: #### CBC #### [facility] [address] [address] [address] Kavya Pickens URINE PROFILEon 66-05-1793Mxhcusgou Ql (U)NegativeNormal NEGATIVEThe [facility] SystemComment on above:Performed By: #### JAYLEEN, ERUR #### [facility] [address] [address] [address] Kavya TorresClarity (U)CLEARNormalCLEARThe [facility] SystemComment on above: Performed By: #### JAYLEEN, ERUR #### [facility] [address] [address] [address] Kavya TorresColor (U)LT. YELLOWNormalYELLOWThe [facility] SystemComment on above:Performed By: #### JAYLEEN ERUR #### [facility] [address] [address] [address] Kavya Leal micrscopic examination will be performed if indicated. NormalThe [facility] SystemComment on above:Performed By: #### JAYLEEN ERUR #### [facility] [address] [address] [address] Kavya TorresGlucose Ql (U)NegativeNormalNEGATIVEThe [facility] SystemComment on above:Performed By: #### JAYLEEN ERUR #### [facility] [address] [address] [address] Kavya TorresHemoglobin Ql (U)TRACE-LYSEDAbnormalNEGATIVEWestern Reserve Hospital on above:Performed By: #### JAYLEEN, ERUR #### [facility] [address] [address] [address] Kavya TorresKetones Ql (U)NegativeNormalNEGATIVEThe [facility] SystemComment on above:Performed By: #### JAYLEEN, ERUR #### [facility] [address] [address] [address] Kavya TorresLEUKOCYTESNegativeNormalNEGATIVEThe [facility] SystemComment on above:Performed By: #### JAYLEEN ERUR #### [facility] [address] [address] [address] Kavya Dave Ql (U)NegativeNormalNEGATIVEThe [facility] SystemComment on above:Performed By: #### JAYLEEN ERUR #### [facility] [address] [place] [address] Dr. Kavya TorrespH (U)6.0 [pH]Normal5-9The [facility] SystemComment on above: Performed By: #### JAYLEEN ERUR #### [facility] [address] [place] [address] Dr. Kavya TorresSPEC GRAVITY1.889Xviytp4.005-<=1.025The [facility] SystemComment on above:Performed By: #### GINO CLEMENSR #### [facility] [address] [place] [address] Dr. Kavya Clark PROTEINNegativeNormalNEGATIVE/ TRACEThe [facility] Comment on above:Performed By: #### JAYLEEN ERUR #### [facility] [address] [place] [address] Dr. Kavya Turner MICRO INDINDICATEDNormalThe [facility] SystemComment on above: Performed By: #### GINO CLEMENSR #### [facility] [address] [place] [address] Dr. Kavya Leijagen Qn (U)0.2 {Tito'U}/dLNormal0.2 - 1.0The [facility] SystemComment on above:Performed By: #### JAYLEEN ERUR #### [facility] [address] [place] [address] Dr. Kavya RainesF 14(COMP METB)on 89-36-6856Aedwxwl [Mass/Vol]3.5 g/dLNormal 3.4-5.0The [facility] HospitalComment on above:Performed By: #### CMP #### [facility] [address] [place] [address] Dr. Kavya TorresAlbumin/Globulin [Mass ratio]1.1 {ratio}NormalThe [facility] HospitalComment on above:Performed By: #### CMP #### [facility] [address] [address] [address] Kavya LeonardP [Catalytic activity/Vol]107 U/QVzrims99-040Fof [facility] SystemComment on above:Performed By: #### CMP #### [facility] [address] [address] [address] Kavya LeonardT [Catalytic activity/Vol]42 U/QQkkxnb45-67Bnb [facility] SystemComment on above:Performed By: #### CMP #### [facility] [address] [address] [address] Kavya Olsonon gap [Moles/Vol]10.2 mmol/LNormalThe [facility] Comment on above:Performed By: #### CMP #### [facility] [address] [address] [address] Kavya TorresAST [Catalytic activity/Vol]24 U/VJlqwth58-00Yrh [facility] SystemComment on above:Performed By: #### CMP #### [facility] [address] [address] [address] Kavya TorresBilirubin [Mass/Vol]0.2 mg/dLNormal0.2-1.0The [facility] Comment on above:Performed By: #### CMP #### [facility] [address] [place] [address] Dr. Kavya TorresCalcium [Mass/Vol]8.8 mg/dLNormal8.5-10.1The [facility] Comment on above:Performed By: #### CMP #### [facility] [address] [place] [address] Dr. Kavya TorresChloride [Moles/Vol]101 mmol/NRrzflf52-874Lgw [facility] Comment on above:Performed By: #### CMP #### [facility] [address] [address] [address] Kavya TorresCO2 [Moles/Vol]29.2 mmol/LBrqjxy03.0-32.0The [facility] Comment on above:Performed By: #### CMP #### [facility] [address] [address] [address] Kavya TorresCreatinine [Mass/Vol]0.85 mg/dLNormal0.55-1.02The [facility] SystemComment on above:Performed By: #### CMP #### [facility] [address] [place] [address] Dr. Kavya FrostGFR-AF BAHRAINI>60Normal>=60The [facility] SystemComment on above:Performed By: #### CMP #### [facility] [address] [place] [address] Dr. Kavya FrostGFR-NON AF BAHRAINI>60Normal>=60The [facility] SystemComment on above:Performed By: #### CMP #### [facility] [address] [place] [address] Dr. Kavya TorresGlobulin (S) [Mass/Vol]3.3 g/dLNormalThe [facility] SystemComment on above:Performed By: #### CMP #### [facility] [address] [place] [address] Dr. Kavya TorresGlucose [Mass/Vol]94 mg/dXXfsleg53-556DdoThe [facility] Comment on above:Performed By: #### CMP #### [facility] [address] [place] [address] Dr. Kavya TorresPotassium [Moles/Vol]3.4 mmol/LCritically low3.5-5.1The [facility] SystemComment on above:Performed By: #### CMP #### [facility] [address] [place] [address] Dr. Kavya TorresProtein [Mass/Vol]6.8 g/dLNormal6.4-8.2The [facility] Comment on above:Performed By: #### CMP #### [facility] [address] [place] [address] Dr. Kavya TorresSodium [Moles/Vol]137 mmol/HYoegmx012-313OqtThe [facility] Comment on above:Performed By: #### CMP #### [facility] [address] [place] [address] Dr. Yilan ChangUrea nitrogen [Mass/Vol]15.0 mg/dLNormal7.0-18.0[facility] Hospitalment on above:Performed By: #### CMP #### [facility] [address] [place] [address] Dr. Kavya Velasco nitrogen/Creatinine [Mass ratio]17.6 mg/mgNoCleveland Clinic Marymount HospitalComment on above:Performed By: #### CMP #### [facility] [address] [place] [address] Dr. Kavya Winchester MICROSCOPIC ONLYon 59-60-1868ZDZVVCUSQNPYYSyunpetmKNBU SEEN The [facility] SystemCom[facility] on above:Performed By: #### JAYLEEN ERUR #### [facility] [address] [place] [address] Dr. Kavya Hernandez identified Cx Nom (U)NOT INDICATEDTriHealth McCullough-Hyde Memorial HospitalCombronson [facility]ist hospital on above:Performed By: #### JAYLEEN, ERUR #### [facility] [address] [place] [address] Dr. Kavya Calles SEENNormalNONE SEENThe [facility] SystemCombronson [facility]ist hospital on above:Performed By: #### JAYLEEN ERUR #### [facility] [address] [place] [address] Dr. Kavya Alvarado LM Nom (Urine sed)NONE SEENNormalNONE SEENAvita Health System on above:Performed By: #### JAYLEEN, ERUR #### [facility] [address] [place] [address] Dr. Hoff ChangEpithelial cells LM Ql (Urine sed)MODERATEAbnormalNONE SEEN /RARE The [facility] SystemCom[facility] on above:Performed By: #### JAYLEEN ERUR #### [facility] [address] [place] [address] Dr. Kavya Montenegro SEENNormalNONE SEENThe [facility] SystemCombronson [facility] hospital on above:Performed By: #### JAYLEEN ERUR #### [facility] [address] [place] [address] Dr. Kavya WangLqzzrYJK2-5Gcfwyi6-1Gpr [facility] SystemComment on above:Performed By: #### BENITO CLEMENS #### [facility] [address] [address] [address] Kavya TorresWBC0-2AbnormalNONE SEENThe [facility] SystemComment on above: Performed By: #### BENITO CLEMENS #### [facility] [address] [address] [address] Kavya Winchester culture routineOrdered By: Darrel Barrow on 05-11-2022 Bacteria identified Cx Nom (U)No Growth 2 [facility]Day[facility] Automated erythrocytes count in urine sediment (number/area)Ordered By: Darrel Barrow on 50-81-1041ZIP Auto (Urine sed) [#/Area]0-1 [HPF]0-4FMagruder HospitalAutomated leukocytes count in urine sediment (number/area)Ordered By: Darrel Barrow on 74-60-2376WHO Auto (Urine sed) [#/Area]None seen [HPF]0-4 [facility] HospitalBilirubin Auto test strip Ql (U)Ordered By: Darrel Barrow on 15-39-2386Pvvqfztob Ql (U)NegativeNegativeDayton Osteopathic HospitalKetones Auto test strip (U) [Mass/Vol]Ordered By: Darrel Barrow on 40-41-3916Muglsxa (U) [Mass/Vol]NegativeNegSelect Medical Specialty [facility], IncLaboratory - UrinalysisOrdered By: Darrel Barrow on 52-12-0897Rfrjdai casts LM Ql (Urine sed)None seen [LPF]0-8[facility] Osteopathic HospitalProtein Auto test strip (U) [Mass/Vol]Ordered By: Darrel Barrow on 82-77-3236Tjasorb (U) [Mass/Vol]NegativeNegBarney Children's Medical Centerquamous epithelial cells detection in urine sediment by light microscopyOrdered By: Darrel Barrow on 96-24-6007Upetazkpsw cells.squamous LM Ql (Urine sed)None seen [HPF]0-2FMagruder HospitalUrine appearanceOrdered By: Darrel Barrow on 05-09-2022 Appearance (U)ClearClearFMagruder HospitalUrine bacteria detection by automated methodOrdered By: Darrel Barrow on 35-80-8042Liffaibl Auto Ql (U)None seenNone SeenDayton Osteopathic HospitalUrine colorOrdered By: Darrel Barrow on 43-78-2771Ssqwc (U)YellowYellowDayton Osteopathic Hospital Urine glucose measurement by automated test strip (mass/volume)Ordered By: Darrel Barrow on 92-82-9071Jpwcemx Auto test strip (U) [Mass/Vol]Normal mg/dL NormalDayton Osteopathic HospitalUrine hemoglobin detection by automated test stripOrdered By: Darrel Barrow on 82-88-4087Ugvljynxrg Auto test strip Ql (U) 1+NegativeDayton Osteopathic HospitalUrine leukocyte esterase detection by automated test stripOrdered By: Darrel Barrow on 49-81-9522Ritebjnpg esterase Auto test strip Ql (U)NegativeNegativeDayton Osteopathic HospitalUrine nitrite detection by automated test stripOrdered By: Darrel Barrow on 05-09-2022 Nitrite Auto test strip Ql (U)NegativeNegSelect Medical Specialty Hospital [facility], Inc Urobilinogen Auto test strip (U) [Mass/Vol]Ordered By: Darrel Barrow on 05-09-2022 Urobilinogen (U) [Mass/Vol]Normal mg/dLNormalDayton Osteopathic HospitalpH Auto test strip (U)Ordered By: Darrel Barrow on 45-32-4689aZ (U)1.010 [pH] 1.001-1.030Day[facility] Osteopathic HospitalpH (U)6.0 [pH]5.0-9.0Day[facility] HospitalCOMPREHENSIVE METABOLIC PANELon 82-08-3987Qxwlaiz [Mass/Vol]4.2 g/dLNormal3.6-5.1Quest DiagnosticsComment on above:Performed By: #### [id number], 5880 #### [facility] [address], [address] [place] [id number] Shell Assembler: Clement Chacko MDAlbumin/Globulin [Mass ratio]1.6 {ratio}Normal 1.0-2.5Quest DiagnosticsComment on above:Performed By: #### 20131, 3900 #### [facility] [address] [place] [address], [address] [place] [phone] [employer] Assembler: Clement Chacko MDALP [Catalytic activity/Vol]84 U/PAsvhyq44-064 [facility] DiagnosticsComment on above:Performed By: #### 25189, 7600 #### [facility] of [address] [address] Shell Assembler: Clement Chacko MDALT [Catalytic activity/Vol]15 U/LNormal6-29 [facility] DiagnosticsComment on above:Performed By: #### 65026, 7600 #### [facility] of [address], [address] [place] [address] Shell Assembler: Clement Chacko MDAST [Catalytic activity/Vol]17 U/RQlxsuk73-87 [facility] DiagnosticsComment on above:Performed By: #### 96766, 7600 #### [facility] of [address] [address] Shell Assembler: Clement Chacko MDBilirubin [Mass/Vol]0.2 mg/dLNormal0.2-1.2 Quest DiagnosticsComment on above:Performed By: #### 16241, 7600 #### [facility] of [address] [address] Shell Assembler: Clement Chacko MDBUN/CREATININE RATIONOT APPLICABLENormal6-22 [facility] DiagnosticsComment on above:Performed By: #### 19896, 7600 #### [facility] of [address] [address] Shell Assembler: Clement Chacko MDCalcium [Mass/Vol]9.5 mg/dLNormal8.6-10.2Quest DiagnosticsComment on above:Performed By: #### 57572, 7600 #### [facility] [address] [address] Shell Assembler: Clement Chacko MDChloride [Moles/Vol]105 mmol/SCxewvo54-381 [facility] DiagnosticsComment on above:Performed By: #### 29359, 7600 #### [facility] of [address] [address] Shell Assembler: Clement Chacko MDCO2 [Moles/Vol]29 mmol/SDlvism36-32Ycrnv DiagnosticsComment on above:Performed By: #### 28955, 7600 #### [facility] of [address] [address] Shell Assembler: Clement NORIEGAreatinine [Mass/Vol]0.73 mg/dLNormal0.50-1.10 Quest DiagnosticsComment on above:Performed By: #### 39755, 7600 #### [facility] of [address] [address] Shell Assembler: Clement Chacko MDeGFR NON-AFR. ENDFPJAR202 mL/min/1.57x4Iubdnb> OR = 60Quest DiagnosticsComment on above:Performed By: #### 48704, 7600 #### [facility] of [address] [address] Shell Assembler: Clement Chacko MDGFR/1.73 sq M.predicted among blacks MDRD (S/P/Bld) [Vol rate/Area]116 mL/min/{1.73_m2}Normal> OR = 60[facility] Comment on above:Performed By: #### 99459, 7600 #### [facility] [address] [address] Shell Assembler: Clement Chacko MDGlobulin (S) [Mass/Vol]2.6 g/dLNormal1.9-3.7 [facility] DiagnosticsComment on above:Performed By: #### 31699, 7600 #### [facility] of [address] [address] Shell Assembler: Clement Chacko MDGlucose [Mass/Vol]83 mg/rNQamlry08-80Oweiv DiagnosticsComment on above:Result Comment: Fasting reference intervalPerformed By: #### 06766, 7600 #### [facility] of [address] [place] [address] Shell Assembler: Clement Chacko MDPotassium [Moles/Vol]4.4 mmol/LNormal3.5-5.3 [facility] DiagnosticsComment on above:Performed By: #### 01375, 7600 #### [facility] of [address], [address] [place] [address] Shell Assembler: Clement Chacko MDProtein [Mass/Vol]6.8 g/dLNormal6.1-8.1Quest DiagnosticsComment on above:Performed By: #### 10359, 7600 #### [facility] of [address], [address] [place] [address] Shell Assembler: Clement Chacko MDSodium [Moles/Vol]140 mmol/VVocnbk346-507Xsktd DiagnosticsComment on above:Performed By: #### 98964, 0 #### [facility] of [address], [address] [place] [address] Shell Assembler: Clement Chacko MDUrea nitrogen [Mass/Vol]12 mg/dLNormal7-25 Quest DiagnosticsComment on above:Performed By: #### 07912, 7600 #### [facility] of [address] [address] Shell Assembler: Clement Chacko MDLIPID PANEL, STANDARDon 52-93-5071Ijvphuwttgb [Mass/Vol]198 mg/dLNormal<200Quest DiagnosticsComment on above:Performed By: #### 36236, 7600 #### [facility] of [address], [address] [place] [address] Shell Assembler: Clement Chacko MDCholesterol in HDL [Mass/Vol]47 mg/dLLow> OR = 50Quest DiagnosticsComment on above:Performed By: #### 50315, 7600 #### [facility] of [address] [address] Shell Assembler: Clement Chacko MDCholesterol in LDL [Mass/Vol]103 mg/dLHigh Quest DiagnosticsComment on above:Result Comment: Reference range: <100 Desirable range <100 mg/dL for primary prevention; <70 mg/dL for patients with CHD or diabetic patients with > or = 2 CHD risk factors. LDL-C is now calculated using the Navid calculation, which is a validated novel method providing better accuracy than the Friedewald equation in the estimation of LDL-C. Freddie SS et al. MAHAD. 2013;310(19): 3051-2145 (http://education.MobiApps/faq/ILQ485)Performed By: #### 40115, 7600 #### [facility] [address], [address] [place] [address] Shell Assembler: Clement NORIEGAholesteroobed.total/Cholesterol in HDL [Mass ratio]4.2 {ratio}Normal<5.0Quest DiagnosticsComment on above:Performed By: #### 98446, 7600 #### [facility] [address], [address] [place] [address] Shell Assembler: Clement Chacko MDNON HDL LXPBJUKFZLH768 mg/dL (calc)High<130 Quest DiagnosticsComment on above:Result Comment: For patients with diabetes plus 1 major ASCVD risk factor, treating to a non-HDL-C goal of <100 mg/dL (LDL-C of <70 mg/dL) is considered a therapeutic option.Performed By: #### 58479, 7600 #### [facility] [address], [address] [place] [address] Shell Assembler: Clement Chacko MDTriglyceride [Mass/Vol]361 mg/dLHigh<150Quest DiagnosticsComment on above:Result Comment: If a non-fasting specimen was collected, consider repeat triglyceride testing on a fasting specimen if clinically indicated. Millie et al. J. of Clin. Lipidol. 2015;9:129-169.Performed By: #### 53444, 7600 #### [facility] [address], [address] [place] [address] Shell Assembler: Clement Chacko MD Vital Signs Date TimeVital SignValuePerforming AduodgbnpIgewgxne00-10-2322 10:16-0400Body zjozvg28.7 kgRobyn Manley DO Work Phone: [facility]03-17-2025 10:16-0400Diastolic blood ciznlicw75 mm[Hg]Robyn Manley DO Work Phone: [facility]03-17-2025 10:16-0400Heart rate90 /min Robyn Manley DO Work Phone: [facility]03-17-2025 10:16-2169ZsV0% (BldA) [Mass fraction]97 %Robyn Manley DO Work Phone: [facility]03-17-2025 10:16-0400Systolic blood gzxnibug580 mm[Hg]Robyn Manley DO Work Phone: [facility]01-23-2025 11:13-0500Blood Pressure LocationJENNIFER LASHELL [facility]01-23-2025 11:13-0500Body twovkzvrcpx44.6 [degF]HARI LASHELL [facility]01-23-2025 11:13-0500Diastolic blood ngqtficl86 mm[Hg]HARI LASHELL [facility]01-23-2025 11:13-0500Heart rate67 /minJENNIFER LASHELL [facility]01-23-2025 11:13-0500Respiratory rate18 /minJENNIFER LASHELL [facility]01-23-2025 11:13-0500Systolic blood bifjwxsm208 mm[Hg]HARI LASHELL [facility]01-09-2025 14:22-0500Body uvnvztrowmp01.7 [degF]Jean Paul Gomezlong DO Work Phone: [employer]01-09-2025 14:22-0500Diastolic blood jrpgydzy89 mm[Hg]Jean Paul Gomezlong DO [facility] Phone: [facility]2025 14:22-0500Heart rate 62 /minDkavithais Jasonlong DO Work Phone: [facility]01-09-2025 14:22-2559QgX3% (BldA) [Mass fraction]98 %Jean Paul Gomezlong DO Work Phone: [facility]01-09-2025 14:22-0500Systolic blood acffkbuy101 mm[Hg]Jean Paul Aponteng DO Work Phone: [facility]12-23-2024 16:14-0500Body .6 cmDenstevo Gomezlong DO Work Phone: [employer]12-23-2024 16:14-0500Body mass index (BMI) [Ratio]24.61 kg/s3Havpkc Furlong DO Work Phone: [employer]12-23-2024 16:14-0500Body sikotrwexkn08.2 [degF]Jean Paul Gomezlong DO Work Phone: [facility]12-23-2024 16:14-0500Body prxhwa03.17 kgDenstevo Gomezlong DO Work Phone: [employer]12-23-2024 16:14-0500Diastolic blood ubiyhsiv85 mm[Hg]Jean Paul Gomezlong DO Work Phone: [facility]12-23-2024 16:14-0500Heart rate 109 /Alyis Jasonlong DO Work Phone: [employer]12-23-2024 16:14-0500 Respiratory rate18 /minDkavithais Furlong DO Work Phone: [facility] Wmjnjr93-01-6775 16:14-8567UsR9% (BldA) [Mass fraction]95 %Jean Paul Gomezlong DO Work Phone: [facility] Zbbtbn37-95-8025 16:14-0500Systolic blood ectleojr232 mm[Hg]Jean Paul Aponteng DO Work Phone: [facility] Bwjdqx84-06-7503 05:46-0500 Respiratory rate18 /Esme Rendon MD Work Phone: [employer]12-07-2024 04:20-0500Diastolic blood qzifwltz61 mm[Hg]Xiomara Rendon MD Work Phone: [employer]12-07-2024 04:20-0500Heart rate81 /Esme Rendon MD Work Phone: [employer]12-07-2024 04:20-3534QiK3% (BldA) [Mass fraction]100 %Xiomara Rendon MD Work Phone: [employer]12-07-2024 04:20-0500Systolic blood dhcvzicd559 mm[Hg]Xiomara Rendon MD Work Phone: [employer]12-06-2024 23:40-0500Body amboyo124.6 cmXiomara Rendon MD Work Phone: [employer]12-06-2024 23:40-0500Body mass index (BMI) [Ratio]24.21 kg/m5VsdkenXiomara Rendon MD Work Phone: [employer]12-06-2024 23:40-0500Body hvhrscnfeil00.81 [degF]Xiomara Rendon MD Work Phone: [employer]12-06-2024 23:40-0500Body itdzvu15.04 kgXiomara Rendon MD Work Phone: [employer]06-30-2022 11:15-0400Body ejnsco764.64 cmCjaradghassan sIlas Other [employer] Other 06-30-2022 11:15-0400Body mass index (BMI) [Ratio] 22.27 kg/w4EiyoajGaby Islas Other [employer] Other 06-30-2022 11:15-0400Body uwdiaqcidyq97.4 [degF]Gaby Islas Other [employer] Other [id number] 11:15-0400Body gbfugo69.6 kgGaby Islas Other [employer] Other 06-30-2022 11:15-0400Respiratory rate18 /minGaby Islas Other [employer] Other 06-30-2022 11:15-3657UsA6% (BldA) [Mass fraction]99 % Gaby Islas Other [employer] Other Encounters Encounter DateEncounter [facility] ProviderFacilityStart: 08-16-2025 End: 34-34-7226XcdsbiLwmatd G Furlong DO Work Phone: [facility] - Family MedicineComment on above:Gastroesophageal reflux disease, unspecified whether esophagitis presentStart: 05-21-2025 End: 98-93-1432Mdejmicgg department patient visitJEAN PAUL AlcantarAudie L. Murphy Memorial VA Hospitaltart: 03-09-2025 End: 60-24-8145Ztqpyu flowsheetNichole L Dauch-[place] PT Work Phone: [facility]oms [facility] PTStart: 03-09-2025 End: 46-82-9821Dikcit flowsheetNichole L Dauch-[place] PT Work Phone: [facility]oms [facility] PTStart: 03-09-2025 End: 87-87-3145uwipzhvqftDnrvhbg L Dauch-[place] PT Work Phone: noms [facility] PTComment on above:Lumbar radiculopathy, right (Primary Dx)Start: 02-24-2025 End: 65-64-2940Yrsbib flowsheetNichole L Dauch-[place] PT Work Phone: noms [facility] PTStart: 02-24-2025 End: 79-34-7753Ioziah flowsheetNichole L Dauch-[place] PT Work Phone: noms [facility] PTStart: 02-24-2025 End: 03-11-5545kwfkqiltfiRdgnsoh L Dauch-[place] PT Work Phone: noms [facility] PTComment on above:Lumbar radiculopathy, right (Primary Dx)Start: 12-28-2024 End: 16-66-5301cnrmyvkswjLAXHNA GERARD FURLONGFacility:[facility] Start: 12-28-2024 End: 91-15-5258Nkqtmmc encounter procedureAlison Manley DO Work Phone: Sp[facility] InstituteComment on above:Cervical spondylosis without myelopathy (Primary Dx); Rheumatoid arteritis (HCC)Start: 11-11-2024 End: 23-11-5305Pntboinhj encounterDelilah Al CMAProMedica Physicians Internal Medicine - Family MedicineStart: 11-05-2024 End: 76-03-5708cpisbbhmvcAGRd LOBOFacility:EULALIO BellevueStart: 11-05-2024 End: 28-16-3274Rncqdzk encounter procedureJECARLY LOBO [facility] Britton start: 10-22-2024 End: 77-65-3025Wtguwi outpatient visit 10 minutesJean Paul Staples DO Work Phone: [facility] - Family MedicineComment on above:Dysuria (Primary Dx); Other microscopic hematuria; History of urethral strictureStart: 10-22-2024 End: 49-12-4516aftpidueqpCMREVURangely District Hospital Ambulatory PPGStart: 10-20-2024 End: 16-15-6963Pkxqufpaq encounterMisty RyanFort [facility] [place] Internal Medicine - Family MedicineStart: 10-05-2024 End: 08-42-6257exnmuhkgwjHTFUHMCommunity Memorial [facility] Ambulatory PPGStart: 10-05-2024 End: 60-04-5562Xigtva outpatient visit 25 minutesJean Paul Staples DO Work Phone: [facility] Medicine - Family MedicineComment on above:Jaw pain (Primary Dx); Atypical chest pain; Degenerative disc disease, cervicalStart: 09-18-2024 End: 55-80-8001Nudacogkg department patient visitJEAN PAUL Saravia [facility] HospitalComment on above:Nonintractable headache, unspecified chronicity pattern, unspecified headache type (Primary Dx); Spasm of muscleStart: 08-26-2024 End: 31-74-0484Cohunyo encounter procedureJean Paul Staples DO Work Phone: [facility] Work Phone: Start: 08-26-2024 End: 56-72-8160obqnmqlhygZrhbzs Furlong DO Work Phone: [facility] Work Phone: Start: 06-01-2024 End: 22-31-0319NwlssiHwsk Cooper [facility] Physicians Internal Medicine - Family MedicineComment on above:Gastroesophageal reflux disease, unspecified whether esophagitis presentStart: 05-22-2024 End: 79-72-7039WmbczzTdcgbm G Furlong DO Work Phone: [facility] - Family MedicineComment on above:Gastroesophageal reflux disease, unspecified whether esophagitis presentStart: 85-95-0604Vvfagt OnlyJean Paul Staples DO Work Phone: [facility] - Family MedicineComment on above:Palpitations (Primary Dx)Start: 12-12-2022 End: 79-28-1979xtotfqdcpcJTQLWKMR EBERLYFacility:C5Gawmc: 10-17-2022 End: 74-50-8656zrlshvprvyAZ HARJINDER MARKER .Facility:L6Lthad: 05-14-2022 End: 91-93-5032Zyckmoy encounter procedureDO Jean Paul Staples Work Phone: [facility] [place] Start: 05-09-2022 End: 38-61-0271Gdvaaaec ReferredDO Jean Paul Staples Work Phone: [facility] Main CampusStart: 04-12-2022 End: 37-82-5371lmdtqxtuyaBtfeih Taylor Other [place] Other Start: 04-48-1156Tujsqj outpatient visit 15 minutes [facility] [address] Procedures DateProcedureProcedure DetailPerforming ClinicianStart: 99-00-3785Zeeqo dip stick/tablet rgnt auto w/o microscopyDenstevo Staples DO Work Phone: Start: 46-49-1439Yajwsu-up visitFollow-upDMARIE STAPLESStart: 90-72-7618Vhabq depression screening assessmentJean Paul Staples DO Work Phone: Start: 44-15-1600Xpta bld gluc mntr dev cleared fda spec home useDavid Iliano PA-C Work Phone: Start: 37-54-9714Ek angiography head w/contrast/noncontrastDavid Iliano PA-C Work Phone: Start: 57-14-6408Jz angiography neck w/contrast/noncontrastDavid Toya PA-C Work Phone: Start: 69-47-1724Euxjg of ethanolDaoscar Pittman PA-C Work Phone: Start: 07-98-5120Ubwstpdiqu exam chest single view Tico Pittman PA-C Work Phone: Start: 79-25-3710Gokyzbiuiwdaz metabolic panelDaoscar Pittman PA-C Work Phone: Start: 48-36-1873Xgsys X-ray of right hipDennis Fading DO Work Phone: Start: 39-26-7412N-ray of lumbar spine, four or more viewsDennis Fading DO Work Phone: Start: 08-72-2885Hwtcv depression screening assessment Jean Paul Fading DO Work Phone: Start: 51-50-2256Duecftxrgpvzqmh of bilateral kidneys DO Jean Paul Aponteng Work Phone: Start: 89-94-8403CtwvrmuycurWikhpv Jasonlong DO Work Phone: Start: 95-64-4490Rafav 1996 panel - Serum or Plasma Robyn Shant DO Work Phone: HysterectomyJENNIFER LASHELL Sphenoid sinusotomyJENNIFER LASHELL TonsillectomyJENNIFER LASHELL Urine cultureDO Jean Paul GomezSmartStartng Work Phone: Plan of Treatment DateCare ActivityDetailAuthorStart: 85-43-3313XFtM,Tdap and Td Vaccines (2 - Td or Tdap)DTaP,Tdap and Td Vaccines (2 - Td or Tdap)[facility] SystemStart: 23-80-1484HPuT/Tdap/Td vaccine (2 - Td or Tdap)DTaP/Tdap/Td vaccine (2 - Td or Tdap)Quirino Crawford [facility] Hospitalluis HealthStart: 52-62-6937Linsm microalbumin profile DTaP,Tdap,Td Vaccine (2 - Td or Tdap)[facility] Hospitaltart: 46-82-0183Ithqsigl ScreeningDiabetes ScreeningOur Lady of Mercy Hospitaltart: 83-17-0766Hatke BMI Screening Adult BMI ScreeningProUniversity [facility]als [facility] SystemStart: 07-69-1324Ccoujox Screening Tobacco ScreeningProOhioHealth Grant Medical Centertart: 76-26-1109Slsjg BMI Screening Adult BMI ScreeningProOhioHealth Grant Medical Centertart: 67-38-3438Kodlqjkmbd Screening Depression ScreeningMission Hospitaltart: 61-54-3348Itsybrx Screening Tobacco ScreeningProOhioHealth Grant Medical Centertart: 19-68-1740YHSUQ-19 Vaccine ( season)COVID-19 Vaccine ( season)[facility] Start: 21-31-6238Zzikljvde vaccinationNOMS HealthcareStart: 03-11-2025 End: 82-79-3702fntvjifzybKQOE SWS PTStart: 03-09-2025 End: 66-69-1929qcqimkhgjfZLMB [facility] PTComment on above:ArrivedStart: 03-02-2025 End: 80-31-2295gyscgbvjuv06/20/2025 8:00 AM EDT Treatment [facility] [address] [place] [address] Reggie Martinez, PT [address] [place] [address] [facility] SWS PTStart: 01-07-2025 End: 70-83-0451Egavnui encounter eificiphm38/27/2025 11:00 AM EDT [facility] [address] [place] [address] Jean Paul Staples, DO [address] [place] [address] [facility] - Family MedicineStart: 30-30-7208Phymt BMI ScreeningAdult BMI ScreeningReg[facility] SystemStart: 79-49-0031Znkrogvahb ScreeningDepression ScreeningRegency Hospital [facility] SystemStart: 53-22-1226Rdprvsw ScreeningTobacco ScreeningProUniversity [facility]als [facility] SystemStart: 40-27-1266OGTRB-19 Vaccine ()COVID-19 Vaccine ()[facility] Centerart: 26-33-4188TTWIT-19 Vaccine ()COVID-19 Vaccine ()[facility] Hospitaltart: 27-94-1422Zjcgdcgyr vaccinationRegency Hospital [facility] SystemStart: 05-47-5969Ngjymsnai vaccinationFlu vaccine (#1)[facility] HospitalStart: 81-87-1226QBEQP-19 Vaccine ()COVID-19 Vaccine ()[facility] HospitalComment on above:Postponed from 06/14/2023 (Patient Refused)Start: 10-09-2023 End: 98-49-7299Aefla monitorEvent monitor Cardiac Services Routine Palpitations Expected: 10/09/2023, Expires: 10/09/2024[facility] HospitalComment on above:Expected: 10/09/2023, Expires: 10/09/2024Start: 10-09-2023 End: 16-68-3842Egjszo monitor studyHolter monitor 24-48 hour Cardiac Services Routine Palpitations Expected: 10/09/2023, Expires: 10/09/2024[facility] S[facility] Work Phone: Comment on above:Expected: 10/09/2023, Expires: 10/09/2024Start: 87-36-4362CRHBZ-19 Vaccine ()COVID-19 Vaccine ()[facility] Hospitaltart: 61-18-9995Hbbfcgpzh vaccinationInfluenza VaccineMission Hospitaltart: 10-94-4577Zjuok panel Lipid ScreeningOur Lady of Mercy Hospitaltart: 67-98-6539Sdojxhidh for malignant neoplasm of colonBon [facility] Medical Centerart: 41-28-5344Yaxdymoaq for malignant neoplasm of breastBreast cancer screenSentara Williamsburg Regional Medical Centerart: 05-14-2022 Ultrasonography of bilateral kidneysUS renal [facility] Start: 05-14-2022 End: 19-60-2044Uedmvbz encounter procedureDeparted [facility]trasound Main CampusStart: 02-49-9120Xblsvjopm for malignant neoplasm of breastMission Hospitaltart: 78-28-5072Hlycw panelLipidsSentara Williamsburg Regional Medical Centerart: 02-82-9348Mqagcxigd for malignant neoplasm of cervix [facility]: 19-83-5749Zrnriopne B vaccine (2 of 3 - 19+ 3- dose series)Hepatitis B vaccine (2 of 3 - 19+ 3-dose series)[facility]: 93-36-5792Uuedsdgqo for malignant neoplasm of cervixClinch Valley Medical Center: 55-16-7628Hkjvqirgztiv vaccinationPneumococcal Vaccine (1 of 2 - PCV)[facility] Hospitaltart: 51-77-3454Bqqpa BMI Follow Up PlanAdult BMI Follow Up [facility]tart: 12-28-8241Amzsgwq ScreeningAnxiety ScreeningOur Lady of Mercy Hospitaltart: 65-18-2379Nngxfixdyx ScreeningDepression ScreeningOur Lady of Mercy Hospitaltart: 93-83-5286Gcwqfhgco C screeningClinch Valley Medical Center: 87-22-7142EUL screeningHIV ScreeningOur Lady of Mercy Hospitaltart: 22-76-6926RJS screeningHIV screenClinch Valley Medical Center: 1989 Depression ScreenDepression ScreenClinch Valley Medical Center: 1983 Pneumococcal 0-64 years Vaccine (1 of 2 - PCV)Pneumococcal 0-64 years Vaccine (1 of 2 - PCV)[facility]: 15-86-7035Kjmjnguzo for malignant neoplasm of colonNOMS HealthcareStart: 36-46-7755Vcvhhjz CounselingTobacco CounselingMemorial Health System [facility] End: 44-90-7807Cdnoehvpjc with Reflex to CultureUrinalysis with Reflex to Culture Lab STAT One Time for 1 Occurrences starting 09/19/2024 until 09/19/2024 Quirino Crawford modulR Work Phone: Comment on above:One Time for 1 Occurrences starting 09/19/2024 until 09/19/2024 Immunizations Immunization DateImmunizationNotesCare WovelukxBnoknrnn76-05-0619Jjdmposex, injectable, Madin Isola Canine Kidney, preservative free, quadrivalentDennis Furlong DO Work Phone: [facility] HospitalQwdpxp30-77-6935eonczgdui virus vaccine, unspecified formulationDennis Furlong DO Work Phone: [facility]02-19-2022influenza virus vaccine, unspecified formulationJENNIFER LASHELL [facility]02-19-2022influenza, injectable, quadrivalent, preservative freeDennis Furlong DO Work Phone: [facility]02-19-2022tetanus toxoid, reduced diphtheria toxoid, and acellular pertussis vaccine, adsorbedDennis Furlong DO Work Phone: [facility] HospitalLeburl43-45-6817TIUPM-95 Vaccine, vector-nr, rS-Ad26, PF, 0.5mLDennis Furlong DO Work Phone: [facility] HospitalComment on above:Result Comment: 2024-11-05: [id number]-02 Vaccine, vector-nr, rS-Ad26, PF, 0.5mLDennis Furlong DO Work Phone: [facility] HospitalXbruts16-55-3242etfietxfc A vaccine, adult dosageDennis Furlong DO Work Phone: [facility] HospitalVccoia81-89-9530gopwbxcfs A vaccine, adult dosageDennis Furlong DO Work Phone: [facility] HospitalBiqrwg08-17-7784tggqmziom virus vaccine, unspecified formulationJENNIFER LASHELL [facility]10-01-2019influenza, seasonal, injectableDennis Furlong DO Work Phone: [facility] HospitalCivxrl11-81-1269jwsderxdb virus vaccine, unspecified formulationJENNIFER LASHELL [facility]09-25-2019influenza, injectable, quadrivalent, contains preservative Jean Paul Furlong DO Work Phone: [facility] HospitalYjluxy79-32-2329edfzfwtjo B vaccine, adult dosageDennis Furlong DO Work Phone: [facility] Payers DatePayer CategoryPayerPolicy [id number] [id number] Cross Blue Shield [id number] County Hospital Managed Care - OtherANTHEM [id number] BCBS OUT OF STATE PPO/TRUST [id number] 2023-Present [phone] [id number] [place] [id number] [id number] 2.16.840.1.006151.3.57[id number] 2.16.840.1.027428.3.57[id number] 2.16.840.1.414019.3.57[id number] 2.0.1.719983.3.57[id number] 2.16.840.1.446675.3.57[id number] 2.16.840.1.663543.3.57[id number] 2..840.1.099334.3.57[id number] 2..840.1.489036.3.579.2.225666-10-8147Ugjq-yfv [id number] Cross Blue [id number] 2.840.1.413967.19Private Health InsuranceAetna Insurance [id number] /[id number] 2.840.1.991881.3.579.2.593 [id number] 2.840.1.964091.3.579.2.531Worker's [id number] Social History DateTypeDetailFacilityUnknown if ever smokedWest [place] Other Start: 09-18-2022 End: 64-42-8634Ucg Assigned At [facility] [employer] Other Start: 01-07-2020 End: 43-48-0344Xbbkeot smoking status NHISCurrent some day smokerSt. Charles Hospital CenterStart: 59-66-4039Wzo Assigned At BirthFeUniversity Hospitals Ahuja Medical Centertart: 06-15-2022 End: 66-55-5093ObxYkpwxu (finding)[facility] CenterStart: 09-09-1996 End: 55-93-1196Bwfqwlc smoking status NHISSmokes tobacco dailyRegency Hospital [facility] SystemStart: 09-18-2024 End: 90-01-1708Csxznvvhn beverage intakeCurrent drinker of alcohol (finding) [facility] SystemStart: 09-18-2022 End: 89-86-5854Dgdrfgh of Social functionBon [facility] HealthHow often to you have a drink containing alcohol?4 or more times a weekBon [facility] HealthHow many standard drinks containing alcohol do you have on a typical day?3 or 4ProMediia Health SystemHow often do you have 6 or more drinks on 1 occasion? NeverBon [facility] HealthPhysical abuseDeniesBon [facility] HealthStart: 23-37-7991Wxk assigned at birthNot on fileRegency Hospital [facility] East SystemStart: 31-36-1721Mysvqlw of tobacco useCigarette SmokerRegency Hospital [facility] SystemStart: 09-11-2023 End: 65-81-6672Qnshteg use and exposureSmokeless tobacco non-userRegency Hospital [facility] East SystemHas the [employer], gas, oil, or water Loved.la threatened to shut off services in your home in past 12MoNoProUniversity Hospitals [facility]aut Medical Center SystemAre you now , , , , never or living with a partner? [facility] SystemHow often to you have a drink containing alcohol?2-4 times a monthProUniversity Hospitals [facility] Center SystemHow often do you have 6 or more drinks on 1 occasion?Less than monthlyRegency Hospital [facility] East SystemHow hard is it for you to pay for the very basics like food, housing, medical care, and heatingNot very hard ProMprinceton baptist medical center Health SystemDo you feel stress - tense, restless, nervous, or anxious, or unable to sleep at night because yourmind is troubled all the time - these days [OSQ]To some extentRegency Hospital Cleveland East SystemStart: 33-47-7098Rlhdzcjpv 15Reg[facility] SystemStart: 75-48-5620Wbmmhop CommentocciasonalSelect Medical Specialty Hospital [facility] SystemStart: 48-05-5564Dqwlcoy smoking statusLight tobacco smoker (finding)[facility] Hospitaltart: 59-32-0139Tplgdvwbm beverage intakeNot AskedNew York ClinicStart: 09-19-2023 Alcohol Commentcaffeine more than 4 cups/dayNOMS Healthcare Functional Status PnhwTxcsvwmiubYnitmpRmpqiqaa50-33-7080Pbmcsrasyk StatusN/AExec[facility] Clinical Notes 01-06-2007 to 08-16-2025 Note Date & MnuoZijiRhowpgem22-97-5425 Miscellaneous Notes* Telephone Encounter - Jean Paul Staples DO - 08/16/2025 12:24 AM EST Rx sent in. She is due for a wellness appointment anytime documented in this encounterMemorial Health System [facility] Hospital11-03-2025 Telephone encounter Note* Telephone Encounter - Jean Paul G DO Conchita - 08/16/2025 12:24 AM EST Rx sent in. She is due for a wellness appointment anytime [facility]05-27-2025 History of Present illness Narrative* Reggie Martinez, PT - 03/09/2025 7:00 AM EDT Images from the original note were not included. Physical Therapy Physical Therapy Treatment Visit Patient Name: Sydnie Watts Today's Date: 03/09/2025 Encounter Diagnoses Name Primary? Lumbar radiculopathy, right Yes Visit number: 2 Supervised time:13 minutes Total time: 43 minutes Precautions: None Subjective Pain: 6/10 R buttock pain Overall progress: No change, pt. States performing HEP. Use of medication prior to treatment secondary to ongoing pain. Use of muscle relaxer prior to bed time, however this is chronic use d/t RA. Objective: + P/A L4/5, L5/S1, R SI Treatment: Manual: Joint mobilization lumbar spinous process, GI-III P/A mobilization to facilitate centralized pain x 8 minutes Therapeutic Exercise: Review of HEP for Bethany Phase I x 5 minutes Modalities: Electrical stimulation, heat to lumbosacral spine x 15 minutes for pain relief, muscle relaxation. Lumbar Mechanical Traction 75/50# x 15 minutes Assessment: Pain centralized to R lumbar spine w/ MYA and post manual therapy. Trialed lumbar mechanical traction w/o adverse response. Pt. Advised to continue Bethany Phase I to facilitate sx centralization. Plan: Sydnie Watts will benefit from physical therapy 1-2 times per week for 4-6 weeks per above plan of care. documented in this encounterLakeland Regional HospitalFjnizyinph68-90-0225 History of Present illness Narrative* Reggie Martinez, PT - 02/24/2025 8:00 AM EDT Images from the original note were not included. Physical Therapy Physical Therapy Evaluation Visit Patient Name: Sydnie Watts Today's Date: 02/24/2025 Encounter Diagnoses Name Primary? Lumbar radiculopathy, right Yes Visit number: 1 Subjective Sydnie Watts 49 y.o. female presents to physical therapy w/ chief c/o low back pain and R LE radiculopathy. Progressive over the past few months as pt. States she has had increase in work load. Pt. Has consulted w/ neurosurgeon and pain management, and rheumatology. Mechanism of Onset: unknown, over 1 year progression Current deficits: Pain is constant in R lumbar spine and R LE. Exacerbated w/ lifting, pulling, sitting. Pt. States R LE pain causing sleep disruption recently d/t leg pain after prolonged work shift. 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 Pain: 4-5/10 Location: R lumbosacral radiating to anterior hip, thigh distal to knee Aggravating Factors: sitting, lifting, pulling, pushing Relieving factors: standing, walking, otherwise nothing particular, occasional use of heat Precautions: PMH: unremarkable Imaging: X-ray, results unavailable at time of initial evaluation Objective Spine Musculoskeletal Exam Inspection Thoracolumbar Thoracolumbar inspection is normal. Palpation Thoracolumbar Tenderness: present Sciatic notch: right Piriformis: right SI Joint: right Spinous process: mid lumbar and lower lumbar Spinous process comment: + P/A spring test L3/4, L4/5 localized pain Range of Motion Thoracolumbar Flexion: 50%. Flexion comment: R buttock. Flexion detail: pain. Extension: 75%. Extension detail: no pain. Right Lateral bendin%. Lateral bending comment: R lumbosacral junction. Lateral bending detail: pain. Left Lateral bendin%. Strength Thoracolumbar Thoracolumbar strength additional comments: Negative myotome Sensory Thoracolumbar Thoracolumbar sensation is normal. Spine sensation additional comments: Negative dermatome Special Tests Thoracolumbar Right SLR: pain radiates to right leg SLR pain at: 50 degrees Spine special tests additional comments: + SLUMP R + Distraction for relief Treatment Interventions: Education: HEP education with demonstration, Educated on Eval Findings and POC Manual Therapy: joint mobilization lumbar spine, nerve mobilization Therapeutic Exercise: Bethany Phase I, initiating lumbar AROM, nerve glide, core stabilization, pt. Education for positional modifications, activity modification Therapeutic Activity: Exercises to improve dynamic activities, functional tasks, functional mobility to return to prior activity level Aquatic Therapy: for lumbar extension, deep water distraction, neutral core stabilization, nerve mobilization Neuromuscular re-education: core stabilization Modalities: electrical stimulation, heat, ice, mechanical traction Assessment/Plan Pt. Presents w/ lumbar disc derangement causing R LE radiculopathy decreased tolerance for lifting,pushing, pulling, sitting Assessment/Plan Patient Goals Short Term Goal #1: The patient will demonstrate compliance w/ HEP and activity modification to facilitate pain management Short Term Goal #2: The patient will demonstrate decreased R dural tension R sciatic, femoral nerveto faciltiate centralization of R LE pain Short Term Goal #3: The patient will demonstrate centralized R LE radicular pain to lumbar spine, report absence or decrease in frequency of pain in R LE in 1-2 weeks Short Term Goal #4: The patient will demonstrate decreased intensity of R LE radicular pain by 50% in 1-2 wees, 75% to abolished in 4 weeks Short Term Goal #5: The patient will demonstrate ability to resume full lumbar AROM w/o provoking RLE radicular pain in 4 weeks Shear Tender Goal #1: The patient will demonstrate increase in core strength and lumbar stability to tolerate lifting w/ good posture, pushing, pulling, sitting w/o provoking LBP or R LE radicular pain in 4-6 weeks Sydnie Watts will benefit from physical therapy 2 times per week for 4-6 weeks per above plan of care. I hereby deem this POC medically necessary. Please sign below. Date: documented in this encounterLakeland Regional [id number] NoteHNO ID: [id number] Author: ROBYN MANLEY, DO Service: ? Author Type: Physician Type: Progress Notes Filed: 12/29/2024 11:25 Note Text: Spine Care Path Neck Pain - Chronic (> 12 weeks) Initial Exam SUBJECTIVE HISTORY OF PRESENT ILLNESS: Sydnie Watts is a 49 year old female who presents with a chief complaint of neck pain Started 2-3 years ago and worsening. Upper neck and into head. Midline and left. Some shoulder numbness and aching left. Headaches. Left jaw pain. Better: cracking and release at times. Flexaril 30mg hs. Tramadol 100mg ER x 12 years every morning. Worse: driving, sleeping Back pain to the right and down the hip. Chiropractor about 3 months ago. Temporary relief back and neck. Self/ massage. No PT/acupx PMH: Chrons, RA arteritis. Have not tolerated meds for RA due to flare of Chron's. CT neck, believe was at [facility]. MRI of ? Body part. Office based injections shoulder, hip. Smoker: 1ppd vape. PAIN EVALUATION 12/28/2024 0946 12/28/2024 1011 Pain Level: 6 6 Pain Location: Neck Neck Description: Crushing;Pressure;Sore;Stiffness;Throbbing;Tightness Pressure;Sharp;Burning Duration Amount of Time: -- 1 Duration Units: -- Years Frequency: Continuous Continuous Intervention/Comfort measure: Medication;Massage -- Comments: lower back and right thigh -- Litigation: No Workers' Compensation: No YELLOW AND BLUE FLAGS No-Neg Attitude; Back Pain is Disabling No-Avoiding Activity (for Fear of Pain) No-Depression or Anxiety Disorders No-Social Problems No-Substance Use Disorder No-Job Dissatisfaction No-Financial Disincentives Patient Entered Questionnaires 12/28/2024 Spine Questions Pain Location: Lower back Pain Duration: 1 to 5 years Pain over last 6 months: Every day or nearly every day in the past 6 months Symptoms from neck/cervical spine: Yes Employment Status: Working now Involved in law suit/legal claim: No 12/28/2024 Spine Red Flags Any type of cancer: No Unexplained fever: No Bowel or bladder disfunction: No Unintentional weight loss: No Osteoporosis: Yes 12/28/2024 Neck Questionnaires Benzel Modified STELLA Score 18 (No Myelopathy Symptoms) PROMIS Score Percentiles 12/28/2024 Physical Health Physical Function Percentile 10 Sleep Percentile 14 Fatigue Percentile 5 Pain Interference Percentile 2 12/28/2024 PROMIS SOCIAL ROLE SCORE Social Role Satisfaction Percentile 10 12/28/2024 PROMIS Global Health Scale Physical Health Percentile 15 Mental Health Percentile 26* Patient-reported Percentiles provide an indication of how the patient's score ranks in relation to the general population. Higher percentile rankings indicate better function/quality of life. 50th percentile is the average of the general population and indicates half of respondents had a worse score. Depression Screenin12/28/2024 PHQ-9 Score 7 12/28/2024 PHQ-9 Self-harm Question Question 9 Not at all PHQ-9 Self-Harm (Item 9) response options: 0 Not at all 1 Several days 2 More than half the days 3 Nearly every day PHQ-9 Levels: 0-4 No - mild depression 5-9 Mild depression 10-14 Moderate depression 15-19 Moderately severe depression 20-27 Severe depression There is no problem list on file for this patient. No past medical history on file. No past surgical history on file. Social History Tobacco Use Smoking status: Every Day No family history on file. ALLERGIES Allergen Reactions Remicade [Inflixima* Other: See Comments Paralysis x3 days CURRENT MEDICATIONS: nabumetone (RELAFEN) 750 mg tablet Take 1 tablet by mouth every 12 hours. DULoxetine (CYMBALTA) 30 mg capsule Take 30 mg by mouth every morning. (Patient taking differently: Take 30 mg by mouth every morning. 60 mg daily) estradiol (ESTRACE) 1 mg tablet Take 1 mg by mouth once daily. (Patient taking differently: Take 1 mg by mouth once daily. 2 tab daily) LORazepam (ATIVAN) 0.5 mg Take 0.5 mg by mouth once daily. (Patient taking differently: Take 1 mg by mouth once daily.) cyclobenzaprine (FLEXERIL) 10 mg tablet Take 10 mg by mouth daily at bedtime. (Patient taking differently: Take 10 mg by mouth daily at bedtime. 3 tab at bedtime) magnesium oxide 400 mg tablet Take 1 tablet by mouth once daily. PLENVU 140-9-5.2 gram ppks (Patient not taking: Reported on 12/28/2024) predniSONE (DELTASONE) 20 mg tablet Take 20 mg by mouth once daily. (Patient not taking: Reported on 12/28/2024) REVIEW OF SYSTEMS: Review of Systems Constitutional Positive for Fatigue Negative for Fevers, Night Sweats, Weight Gain and Weight Loss Eyes Negative for Change in vison not corrected by glasses and Vision loss or change Hent Negative for Hearing Loss, Difficulty Swallowing, Tinnitus and Recent change in speech or voice Cardiovascular Positive for Leg pain with walking Negative for Chest Pain and Lightheadedness (more content not included)... [facility]03-17-2025 History of Present illness Narrative* Robyn Manley, - 12/28/2024 10:31 AM EDT Images from the original note were not included. Spine Care Path Neck Pain - Chronic (> 12 weeks) Initial Exam SUBJECTIVE HISTORY OF PRESENT ILLNESS: Sydnie Watts is a 49 year old female who presents with a chief complaint of neck pain Started 2-3 years ago and worsening. Upper neck and into head. Midline and left. Some shoulder numbness and aching left. Headaches. Leftjaw pain. Better: cracking and release at times. Flexaril 30mg hs. Tramadol 100mg ER x 12 years every morning. Worse: driving, sleeping Back pain to the right and down the hip. Chiropractor about 3 months ago. Temporary relief back and neck. Self/ massage. No PT/acupx PMH: Chrons, RA arteritis. Have not tolerated meds for RA due to flare of Chron's. CT neck, believe was at [facility]. MRI of ? Body part. Office based injections shoulder, hip. Smoker: 1ppd vape. PAIN EVALUATION 12/28/2024 0946 12/28/2024 1011 Pain Level: 6 6 Pain Location: Neck Neck Description: Crushing;Pressure;Sore;Stiffness;Throbbing;Tightness Pressure;Sharp;Burning Duration Amount of Time: -- 1 Duration Units: -- Years Frequency: Continuous Continuous Intervention/Comfort measure: Medication;Massage -- Comments: lower back and right thigh -- Litigation: No Workers' Compensation: No YELLOW & BLUE FLAGS No-Neg Attitude; Back Pain is Disabling No-Avoiding Activity (for Fear of Pain) No-Depression or Anxiety Disorders No-Social Problems No-Substance Use Disorder No-Job Dissatisfaction No-Financial Disincentives Patient Entered Questionnaires 12/28/2024 Spine Questions Pain Location: Lower back Pain Duration: 1 to 5 years Pain over last 6 months: Every day or nearly every day in the past 6 months Symptoms from neck/cervical spine: Yes Employment Status: Working now Involved in law suit/legal claim: No 12/28/2024 Spine Red Flags Any type of cancer: No Unexplained fever: No Bowel or bladder disfunction: No Unintentional weight loss: No Osteoporosis: Yes 12/28/2024 Neck Questionnaires Benzel Modified STELLA Score 18 (No Myelopathy Symptoms) PROMIS Score Percentiles 12/28/2024 Physical Health Physical Function Percentile 10 Sleep Percentile 14 Fatigue Percentile 5 Pain Interference Percentile 2 12/28/2024 PROMIS SOCIAL ROLE SCORE Social Role Satisfaction Percentile 10 12/28/2024 PROMIS Global Health Scale Physical Health Percentile 15 Mental Health Percentile 26* Patient-reported Percentiles provide an indication of how the patient's score ranks in relation to the general population. Higher percentile rankings indicate better function/quality of life. 50th percentile is the average of the general population and indicates half of respondents had a worse score. Depression Screenin12/28/2024 PHQ-9 Score 7 12/28/2024 PHQ-9 Self-harm Question Question 9 Not at all PHQ-9 Self-Harm (Item 9) response options: 0 Not at all 1 Several days 2 More than half the days 3 Nearly every day PHQ-9 Levels: 0-4 No - mild depression 5-9 Mild depression 10-14 Moderate depression 15-19 Moderately severe depression 20-27 Severe depression There is no problem list on file for this patient. No past medical history on file. No past surgical history on file. Social History Tobacco Use Smoking status: Every Day No family history on file. ALLERGIES Allergen Reactions Remicade [Inflixima* Other: See Comments Paralysis x3 days CURRENT MEDICATIONS: nabumetone (RELAFEN) 750 mg tablet Take 1 tablet by mouth every 12 hours. DULoxetine (CYMBALTA) 30 mg capsule Take 30 mg by mouth every morning. (Patient taking differently:Take 30 mg by mouth every morning. 60 mg daily) estradiol (ESTRACE) 1 mg tablet Take 1 mg by mouth once daily. (Patient taking differently: Take 1 mg by mouth once daily. 2 tab daily) LORazepam (ATIVAN) 0.5 mg Take 0.5 mg by mouth once daily. (Patient taking differently: Take 1 mg by mouth once daily.) cyclobenzaprine (FLEXERIL) 10 mg tablet Take 10 mg by mouth daily at bedtime. (Patient taking differently: Take 10 mg by mouth daily at bedtime. 3 tab at bedtime) magnesium oxide 400 mg tablet Take 1 tablet by mouth once daily. PLENVU 140-9-5.2 gram ppks (Patient not taking: Reported on 12/28/2024) predniSONE (DELTASONE) 20 mg tablet Take 20 mg by mouth once daily. (Patient not taking: Reported on 12/28/2024) REVIEW OF SYSTEMS: Review of Systems Constitutional Positive for Fatigue Negative for Fevers, Night Sweats, Weight Gain and Weight Loss Eyes Negative for Change in vison not corrected by glasses and Vision loss or change Hent Negative for Hearing Loss, Difficulty Swallowing, Tinnitus and Recent change in speech or voice Cardiovascular Positive for Leg pain with walking Negative for Chest Pain and Lightheadedness Respiratory Negative for SOB at rest, SOB with exertion, Cough, Wheezing and Snoring GI Negative for Blood in Stool, Abdominal Pain, Diarrhea, Constipation, Nausea/Vomiting and Heartburn Negative for Urgency and Incontinence Endocrine Negative for Heat Intolerance and Excessive Thirst Musculoskeletal Positive for Back Pain, Joint Swelling, Stiff Joints and Muscle Pain Integumentary Negative for Rashes, Itching, Other Lesions and Hair Changes Heme/Lymph Negative for Prolonged Bleeding, Easy Bruising and Swelling of Arm or Leg Allergy/Immunologic Negative for Nasal Congestion and Swollen Nodes Neurologic Positive for Headache Negative for Memory Problems, Numbness/Tingling, Weakness, Double Vision, Trouble Swallowing and Slurred Speech Psychiatric Positive for Anxiety Negative for Stress or Conflicts, Depression, Irritability, Hallucinations and Delusions Patient's Review of Systems has been reviewed with the patient and updated as appropriate. OBJECTIVE: PHYSICAL EXAM BP 118/77 (BP Site: Left Arm, BP Position: Sitting, BP Cuff Size: Regular Adult) Pulse 90 Wt 71.7 kg (158 lb 1.1 oz) SpO2 97% GENERAL APPEARANCE: Well nourished, well developed, and no apparent distress. NEURO PSYCH: Patient oriented to person, place, and time. Mood pleasant. Benign affect. CARDIOVASCULAR: No edema noted. No varicosities. SKIN: Head, neck, trunk, and extremities dry, intact and without lesions. LYMPHATICS: Groin exam deferred. MUSCULOSKELETAL VISUAL INSPECTION CERVICAL: WNL THORACIC: WNL LUMBAR: WNL PALPATION: SPINOUS PROCESS: Pain. PARASPINALS: Pain. Diffusely on midline and left SPINE ROM: CERVICAL ROM: Abnormal pain left rot/ext MUSCLE BULK: Normal and symmetrical in the upper & lower extremities. MUSCLE TONE: Normal. MOTOR: 5/5 in all muscle groups. Of upper ext GAIT: Normal. REFLEXES: +2 to bilateral U/L extremities. LONG TRACT SIGNS: No clonus. No Hoffmans. PERIPHERAL JOINT ROM: SHOULDER ROM: Full ROM Without Pain SPURLING'S TEST: Negative. Data Review: [facility] records independently reviewed ASSESSMENT/PLAN (M47.812) Cervical spondylosis without myelopathy (primary encounter diagnosis) Lumbar spondylosis with right radicular pain. (M05.20) Rheumatoid arteritis (HCC) Suspect upper left cervical facet pain and myofascial pain. Though with history of rheumatoid arteritis as well as Crohn's disease concerned that she may have inflammatory changes and recommend consider advanced imaging. She is unsure exactly what advanced imaging she has already had and of what body regions. We will obtain records. The meantime she will work with her chiropractor that has already helped her and see if her pain can become more localized to a single spinal segment in the cervical region. Her lumbosacral region pain rating to the right leg was partially evaluated. She has had chiropractic on this area as well. Chiropractic will readdress this and we will also see what imaging has already been done. Will consider diagnostic and therapeutic injection depending on those results. I will see her for follow-up in approximately 4 to 6 weeks. It is okay if that visit is virtual. SIGNATURE: Robyn Manley DO PATIENT NAME: Sydnie Watts DATE: December 28, 2024 TIME: 10:31 AM [facility] Miscellaneous Notes* Telephone Encounter - Delilah AlTONEY - 11/11/2024 1:53 PM EST ----- Message from Dr. Jean Paul Staples DO sent at 11/11/2024 12:46 PM EST ----- Her echo with bubble study did not reveal any ASD or VSD. She does not need to see a hotel operations manager for that. If she is still having jaw or chest pain, especially with exertion then she needs a stress test * Telephone Encounter - Anju Romano - 11/11/2024 1:53 PM EST Patient notified and understands , she is feeling better but comes and goes, she still has SOB whengoing up the stairs, also seen urology, is scheduled in december for procedure, was given a topical cream but is still having pain and burning after urinating * Telephone Encounter - Jean Paul Staples DO - 11/11/2024 1:53 PM EST Okay. Should probably set up a wellness anyways soon * Telephone Encounter - Anju Romano - 11/11/2024 1:53 PM EST Wellness scheduled documented in this encounterAC[facility] elarm [id number] Telephone encounter Note* Telephone Encounter - Delilah Al CMA - 11/11/2024 1:53 PM EST ----- Message from Dr. Jean Paul Staples DO sent at 11/11/2024 12:46 PM EST ----- Her echo with bubble study did not reveal any ASD or VSD. She does not need to see a hotel operations manager for that. If she is still having jaw or chest pain, especially with exertion then she needs a stress test [facility] [id number] Telephone encounter Note* Telephone Encounter - Anju Romano - 11/11/2024 1:53 PM EST Patient notified and understands , she is feeling better but comes and goes, she still has SOB whengoing up the stairs, also seen urology, is scheduled in december for procedure, was given a topical cream but is still having pain and burning after urinating [employer]01-29-2025 Telephone encounter Note* Telephone Encounter - Jean Paul Staples DO - 11/11/2024 1:53 PM EST Okay. Should probably set up a wellness anyways soon [employer]01-29-2025 Telephone encounter Note* Telephone Encounter - Anju Romano - 11/11/2024 1:53 PM EST [facility] Discharge instructions Patient Education 11/05/2024 13:04:54 Dysuria Dysuria [...] Follow these instructions at home: Medicines Take mzdc-trb-psncbpt and prescription medicines only as told by your health care provider. If you were prescribed an antibiotic medicine, take it as told by your health care provider. Do notstop taking the antibiotic even if you start [...] have the sudden feeling that you have tourinate (urgency). Watch your condition for any changes. Keep all follow-up visits. Make sure that you urinate often and drink enough fluid to keep your urine pale yellow. This information is not intended to replace advice given to you by your health care provider. Make sure you discuss any questions you have with your health care provider. Document Revised: 05/12/2021 Document Reviewed: 05/12/2021 [employer] Patient Education 2023 [employer]. Follow Up Care 10/27/2024 10:10:55 With:[facility] Address: When: Unknown Comments:For procedure as scheduled. [facility] 01-23-2025 NoteUrology Office/Clinic Note Chief Complaint referral microhematuria HPI Staff 49yr old female pt re-referred by Jean Paul Furlong, DO for micro hematuria & hx of [...] in urethra, now intermittent w voiding. UA isneg. Denies vaginal discharge or itching. No new sexual partners. Sp hysterectomy - we discussed her sx could be due to vaginal/urethral atrophy. Will start trial oftopical estrogen cream. Risks/benefits/side effects discussed. Could also [...] E&M of Est. Patient Moderate 30-39 Min 30311 2. Microhematuria (R31.29: Other microscopic hematuria) Denies gross hematuria. Neg work up by [facility] in 2016 (had UD) and April 2022. Chronic. Will need repeat work-up 3-5 yrs from previous (which would be any time this summer or thereafter). Pt does continue to smoke which increases her risk for Ca. Cessation encouraged. Ordered: 18273 Measure Post Void residual urine and/or bladder capacity by US- non-imaging Body Mass Index (BMI) documented 3008F Current tobacco smoker 1034F Depression Screening Negative 3352F E&M of Est. Patient Moderate 30-39 Min 53099 Influenza immunization status assessed 1030F Medication list documented in medical record 1159F Most recent diastolic blood pressure <80 mm Hg 3078F Review of all meds by a prescribing practitioner or clinical pharmacist documented in EHR 1160F Systolic BP <130 mm Hg (Most Recent) 3074F Urnls Dip Stick Auto w/o Microscopy POC 69393 3. Urethral stricture (N35.919: Unspecified urethral stricture, male, unspecified site) sp UD by [facility] in 2017. Reports good stream, no hesitancy or intermittency or straining. Ordered: [id number] Measure Post Void residual urine and/or bladder capacity by US- non-imaging Body Mass Index (BMI) documented 3008F Current tobacco smoker 1034F Depression Screening Negative 3352F E&M of Est. Patient Moderate 30-39 Min 19168 Influenza immunization status assessed 1030F Medication list documented in medical record 1159F Most recent diastolic blood pressure <80 mm Hg 3078F Review of all meds by a prescribing practitioner or clinical pharmacist documented in EHR 1160F Systolic BP <130 mm Hg (Most Recent) 3074F Urnls Dip Stick Auto w/o Microscopy POC 37215 Orders: estradiol topical, See Instructions, 42.5 gm, Refill(s) 6, appl (more content not included)...[facility] HealthComment on above:Result Comment: Electronically Signed By: HARI LOBO PA-C.sol\Date and Time Signed: 11/05/2512:07 [id number] NotePatient Education Urology Dysuria Dysuria is pain or [...] these instructions at home: Medicines ??? Take rnhd-nat-efnncja and prescription medicines only as told by your health care provider. ??? If you were prescribed an antibiotic medicine, take it as told by your health care provider. Donot stop taking the antibiotic even if you [...] provider. Document Revised: 05/12/2021 Document Reviewed: 05/12/2021 [employer] Patient Education ? 2023 [employer]Pace.[facility] 10-22-2024 History of Present illness Narrative* Jean Paul Staples, DO - 10/22/2024 2:00 PM EST Images from the original note were not included. Subjective Patient ID: Sydnie Watts is a 49 y.o. female. Sydnie presents today for dysuria and back pain. She had a recent urinary tract infection and feels like it is not completely resolved. She denies vaginal symptoms. She also developed low back painthat started yesterday. She does have rheumatoid disease and takes NSAIDs on a daily basis. She does have history of urethral stricture and had to have it dilated years ago by Dr. Brarow who isnow retired she believes. Urinary Tract Infection The following portions of the patient's history were reviewed and updated as appropriate: allergies, current medications, past family history, past medical history, past social history, past surgicalhistory, problem list, and medication reconciliation was completed including current medication andpost discharge medication. Review of Systems Objective Physical [...] (Non-[facility]); Future As above. documented in this encounterWashington [facility] Miscellaneous Notes* Telephone Encounter - Tona Davis CMA - 10/20/2024 11:02 AM EST Pt called stated she has a uti x3-4 days burning , she tried an antibiotic and not getting any better , want to know if you can send in macrobid or do you need her to come in for a nurse visit? * Telephone Encounter - Jean Paul Staples DO - 10/20/2024 11:02 AM EST Have her come in for a nurse visit for UA and sent off for culture since she has been on an antibiotic * Telephone Encounter - Tona Davis CMA - 10/20/2024 11:02 AM EST Called pt she said she will either be in later today if not tomorrow morning , advised her to call on the way over so we can out her on the schedule for a nurse visit * Telephone Encounter - Lea Baldwin CMA - 10/20/2024 11:02 AM EST Noted [facility] Telephone encounter Note* Telephone Encounter - Tona Davis CMA - 10/20/2024 11:02 AM EST Pt called stated she has a uti x3-4 days burning , she tried an antibiotic and not getting any better , want to know if you can send in macrobid or do you need her to come in for a nurse visit? [facility] Telephone encounter Note* Telephone Encounter - Jean Paul Staples DO - 10/20/2024 11:02 AM EST Have her come in for a nurse visit for UA and sent off for culture since she has been on an antibiotic [facility]01-[facility] Telephone encounter Note* Telephone Encounter - Tona Davis CMA - 10/20/2024 11:02 AM EST Called pt she said she will either be in later today if not tomorrow morning , advised her to call on the way over so we can out her on the schedule for a nurse visit [place] [id number] Telephone encounter Note* Telephone Encounter - Lea Baldwin CMA - 10/20/2024 11:02 AM EST Noted [employer] elarm [id number] History of Present illness Narrative* Jean Paul Staples, - 10/05/2024 3:45 PM EST Subjective Patient ID: Sydnie Watts is a [...] arm. She has an appointment with [facility] neuro[facility] department coming up. She is wondering if she could have a referral for Cardiology for her left Alfa shoulder pain. She does have a family history of congenital heart disorders. She did have an echocardiogram with a bubble study done 3 years ago at [facility]. Her machine setter ordered x-rays of her lumbar spine and bilateral hips and apparently there was an abnormality on those. It suggested there was atherosclerosis. I do not have the reports to review. The following portions of the patient's history were reviewed and updated as appropriate: allergies, current medications, past family history, past medical history, past social history, past surgicalhistory, problem list, and medication reconciliation was completed including current medication andpost discharge medication. Review of Systems Constitutional: Negative. [...] she would like to go to the [facility].She will check a new hotel operations manager at the clinic and then let me know who she would like to go see. In the meantime we will try to track down her echocardiogram with bubble study. Degenerative disc disease, cervical Follow up with neurosurgeon documented in this encounterMem[facility] Evaluation note* Encounter Date Diagnosis Assessment Notes Treatment Notes Treatment Clinical Notes Mar, Poison janell (ICD-10 - L23.7) Pt received 60mg IM Kenalog in office today. Pt tolerated well. Performed by Sigifredo Martinez CMA. Pt totake meds as prescribed -- start tomorrow. No other nsaids while on steroid. Pt to avoid contact with allergen. Avoid hot showers as it draws out rash. Pt to use topical calamine lotion or benadryl cream prn for itching. Rx hydroxyzine orn for itching - discussed drowsy side effects. Pt to f/u withpcp as needed for persistent or worsening symptoms. Pt understood and agreed to treatment plan. [employer] Other [id number] History general Narrative - Reported* Type Description Date Medical History Tobacco dependence Medical HistoryChronic pain syndromeMedical HistoryRheumatoid arthtitisMedical HistoryHeartburnMedical HistoryDysphagiaMedical History01/06/07 Colonoscopy-Crohn'sMedical History07/08/03 Colonoscopy-Crohn's, polyp-hyperplasticMedical History03/05/00 EGD/Colonoscopy-normal EGD, Crohn's Medical History01/28/2014 EGD with biopsy, Colonoscopy and polypectomy- esophageal spasm dialated, active Crohn's, flat polyp snared and removed, rectum hemrrhoidsMedical HistoryCrohns diseaseMedical HistoryanxietyMedical History Encounter for smoking cessation counselingMedical History05/08/17 Crohn disease terminal ileumSurgical HistoryhysterectomyHospitalization Historysee surgical hx [employer] Other Evaluation + Plan note No data available for this section [facility] evaluation noteNo assessment information available [facility] Work Phone: Evaluation note* Diagnosis Nonintractable headache, unspecified chronicity pattern, unspecified headache type- Primary Spasm of muscle [facility] Jaw pain- Primary Atypical chest pain Other chest pain Degenerative disc disease, cervical documented in [facility]* Diagnosis Dysuria- Primary Other microscopic hematuria History of urethral stricture Personal history of other disorder of urinary system documented in this encounter [facility]* Diagnosis Palpitations- Primary documented in [facility]* Diagnosis Gastroesophageal reflux disease, unspecified whether esophagitis present documented in this encounter [facility]* Diagnosis Cervical spondylosis without myelopathy- Primary Rheumatoid arteritis (HCC) Other specified disorders of arteries and arterioles [facility] Lumbar radiculopathy, right- Primary documented in this encounter [facility] Healthcare[facility]* Diagnosis Lumbar radiculopathy, right- Primary documented in this encounter [facility] HealthcareEvaluation note* Diagnosis Gastroesophageal reflux disease, unspecified whether esophagitis present documented [facility]* Attachments The following attachments cannot be sent through Care Everywhere. * Headaches: Avoiding Triggers: Video (Rwandan) * TIA (Transient Ischemic Attack) (Rwandan) * Cervical Spasm: Exercises (Rwandan) [facility] encounter[facility] HospitalInstructionsNot on file documented in this encounterPro[facility] SystemInstructionsNot on file documented in this encounterProCh[facility] SystemInstructionsNot on file documented in this encounterProChilton [facility] el[facility] SystemInstructionsNot on file documented in this encounterProUniversity [facility] SystemProgress note No data available for this section [facility] visit Narrative* Rehabilitation - Outpatient (Routine) - AuthorizedSpecialtyDiagnoses / ProceduresReferred By Contact Referred To ContactPhysical Therapy Diagnoses Radiculopathy, lumbosacral region Primary generalized (osteo)arthritis Pain in right hip Procedures MD PHYSICAL THERAPY EVALUATION LOW COMPLEX 20 MINS Moraima Samson FNP [address] [facility] [address] [place] [address] Phone: tel: fax: Reggie Martinez, PT [address] [place] [address] Phone: tel: fax: Referral IDStatusReasonStart DateExpiration DateVisits RequestedVisits [id number] Consult and Treat [id number] [facility] Healthcare Summary Purpose Family History Relationship Condition Age at Onset Recorded Date/T ashly Not Specified Malignant neoplasm of thyroid gland Unkn own fatherDiabetes mellitusUnknown Relationship Condition Age at Onset Recorded Date/T ashly mother Malignant neoplasm of thyroid gland Unkno wn fatherDiabetes mellitusUnknownmotherMalignant neoplasmUnknownFamily history of malignant neoplasm of thyroidUnknown Advance Directives Advance Directive Response Recorded Date/ Time Advance Directives No June 12:08pm Advance Directive Response Recorded Date/ Time Advance Directives No June 11:08am Chief Complaint and Reason for Visit Chief Complaint Hematuria r31.0 Chief Complaint Admit Date m07.69 m15.0 z79.899 back and hip pain N ovember 2023 10:48am Additional Source Comments INFORMATION SOURCE (unrecogn ized section and content) DATE CREATED AUTHOR 03/08/2022 [facility] DATE CREATED AUTHOR AUTHOR'S ORGANIZ ATION 12/18/2022 [facility] DATE CREATED AUTHOR AUTHOR'S ORGANIZ ATION 09/07/2024 [facility] DATE CREATED AUTHOR AUTHOR'S ORGANIZ ATION 09/22/2024 [facility] DATE CREATED AUTHOR AUTHOR'S ORGANIZ ATION 10/27/2024 [facility] DATE CREATED AUTHOR AUTHOR'S ORGANIZ ATION 12/29/2024 [facility] DATE CREATED AUTHOR AUTHOR'S ORGANIZ ATION 03/12/2025 [facility] DATE CREATED AUTHOR AUTHOR'S ORGANIZ ATION 04/04/2025 [facility] DATE CREATED AUTHOR AUTHOR'S ORGANIZ ATION 05/23/2025 [facility] REASON FOR VISIT (unrecogniz ed section and content) ReasonCommentsNumbnessJaw PainReasonCommentsFollow-upLorain [facility] -numbness and tingling. Jaw pain.ReasonCommentsUrinary Tract InfectionReason CommentsMed RefillReasonOnset DateCommentsMed [id number] Patient Care Teams (unrecognized sec tion and content) Team Status: Inactive Member Role Status Dates Jean Paul Satples DO Primary Care Provider Active Mauri Smas ProviderActive Team Status: Active Member Role Status Dates Jean Paul Staples DO Primary Care Provider Active Team Status: Inactive Member Role Status Dates Jean Paul Staples DO Primary Care Provider Active Start: August 26, 2024 End: August 26, 2024Moraima Samson NP-CAttending ProviderActiveStart: August 26, 2024 End: August 26, 2024Team MemberRelationshipSpecialtyStart DateEnd Date Jean Paul Staples [address] [place] [address] PCP - Generalmily Mbajlrpr33/7/24Team MemberRelationshipSpecialtyStart DateEnd Date ConchitaJean Paul [address], [place] [address] PCP - [facility] Medicine06/15/22Team MemberRelationshipSpecialtyStart DateEnd Date ConchitaJean PaulDO [address], [place] [address] PCP - [facility] Medicine06/15/22Team MemberRelationshipSpecialtyStart DateEnd Date ConchitaJean PaulDO [address], [place] [address] PCP - [facility] Medicine06/15/22Team MemberRelationshipSpecialtyStart DateEnd Date Jean Paul Staples DO [address], [place] [address] PCP - [facility] Medicine06/15/22Team MemberRelationshipSpecialtyStart DateEnd Date Jean Paul Staples EfeDO [address], [place] [address] [facility]/15/22Team MemberRelationshipSpecialtyStart DateEnd Date Jean Paul Staples DO [address], [place] [address] PCP - GeneralFamily Medicine06/15/22Team MemberRelationshipSpecialtyStart DateEnd Date Jean Paul Staples DO [address] [place] [address] PCP - GeneralFamily Medicine11/07/20 Angie Hernandez MD [address] [place] [address] IrwzjghenMlwxrulnsjy92/18/20Team MemberRelationshipSpecialtyStart DateEnd Date Jean Paul Staples MD PCP - Generalmily Yrpnlpke14/30/23Team MemberRelationshipSpecialtyStart Date End Date Jean Paul Staples MD PCP - GeneralFamily Edlqhbbp96/30/23Team MemberRelationshipSpecialtyStart Date End Date Jean Paul Staples MD PCP - GeneralFamily Tqmdulnc39/30/23Team MemberRelationshipSpecialtyStart Date End Date Jean Paul Staples MD PCP - GeneralFamily Elgrpgqs41/30/23Team MemberRelationshipSpecialtyStart Date End Date Jean Paul Staples DO [address], [place] [address] PCP - GeneralFamily Medicine06/15/22 Goals (unrecognized section and content) Goals may be documented in a n alternate section Scheduled Active and Recently Administ ered Medications (unrecognized section and content) Medication Order//04/2024 acetaminophen (TYLENOL) tablet 1,000 mg (COMPLETED) 1,000 mg, Oral, ONCE, 1 dose, On 09/19/24 at 0440, Maximum dose of acetaminophen is 4000 mg fromall sources in 24 hours. * 0451 (Given - Provider: Cookie Rubalcava, SIL) dexAMETHasone (DECADRON) tablet 10 mg (COMPLETED) 10 mg, Oral, ONCE, 1 dose, On 09/19/24 at 0542 * 0545 (Given - Provider: Cookie Rubalcava, SIL) morphine sulfate (PF) injection 4 mg (COMPLETED) 4 mg, IntraVENous, ONCE, 1 dose, On 09/19/24 at 0542 * 0546 (Given - Provider: Cookie Rubalcava, SIL) Medication Order//04/2024 iopamidol (ISOVUE-370) 76 % injection 75 mL (COMPLETED) 75 mL, IntraVENous, IMG ONCE PRN, 1 dose, Starting on 09/19/24 at 0048, Until 09/19/24 at 0212, Other * 0212 (Given - Provider: Angeles Emery) Source Comments (unrecognize d section and content) In the event this informatio n is protected by the Federal Confidentiality of Alcohol and Drug Abuse Patient Records regulations: The Federal rules restrict any use of the information to criminally investigate or prosecute any alcohol or drug abuse patient.[facility] FOR RECORDS PERTAINING TO PATIENTS WHO ARE [...] BE BASED ON THE PRIMARY CLINICAL RECORDS. [facility] CenterC[employer] [facility]. provides no warranty or guarantee of the accuracy or completeness of information in this document.
[2025-08-23 13:54] LABS: SARS-CoV-2 Ag NEGATIVE (NEGATIVE)
== END 2025-08-23 14:11 | disposition home or self-care (01) ==
PROVIDERS: Nurse Practitioner Family; Emergency Provider Student in an Organized Health Care Education/Training Program; PCP Family Medicine
DX: J06.9 Acute upper respiratory infection, unspecified (principal)
CPT/HCPCS: 71046; 87070; 87804; 87811; 87880; 93005; 99285